=== PATIENT | male | born 1950 | race Caucasian/White ===

== ENCOUNTER → 2020-06-21 10:52 | Outpatient (BNVA) | payer MEDICARE, OTHER, SELFPAY | PROVIDERS: PCP Nurse Practitioner Family; Referring Provider Nurse Practitioner Family; Visit Provider Surgery | DX: K80.20 Calculus of gallbladder without cholecystitis without obstruction (principal); K29.60 Other gastritis without bleeding | CPT/HCPCS: 99214 ==

== ENCOUNTER 2020-06-28 13:24 | Outpatient (REF) | payer MEDICARE, OTHER, SELFPAY ==
--- NOTE | 2020-06-28 13:28 | CT_ITS ---
EXAMINATION: CT ABDOMEN AND PELVIS WITHOUT CONTRAST CLINICAL INFORMATION: Gallstones. COMPARISON: None. TECHNIQUE: Multidetector volumetric imaging was performed from the superior aspect of the liver through the pubic symphysis. Sagittal and coronal reformatted images were obtained on the technologist's workstation. This CT examination was performed using dose optimization techniques as appropriate, variously including the following: *Automated exposure control *Adjustment of mA and/or kV according to patient size (this includes techniques or standardized protocols for targeted exams where dose is matched to indication/reason for exam; i.e. extremities or head) *Use of iterative reconstruction technique DLP: 869 mGy-cm FINDINGS: LUNG BASES: The visualized lung bases are unremarkable. There are pacer electrodes in right atrium and right ventricle. LIVER, GALLBLADDER, AND BILIARY TREE: The liver is normal in size, shape, and attenuation. No focal hepatic lesion or biliary ductal dilatation is present. There is a solitary radiopaque gallstone in dependent gallbladder. PANCREAS: Unremarkable. SPLEEN: Mild spleen enlargement measuring 15 cm in AP length on axial image 28/3. [id number] change from previous study. ADRENAL GLANDS: Unremarkable. KIDNEYS AND URETERS: The kidneys are normal in size, shape, and attenuation. No hydronephrosis, hydroureter, or calculi seen. No perinephric stranding. BLADDER: The bladder is nondistended and mild bladder wall thickening. GASTROINTESTINAL TRACT: There is scattered sigmoid and rest of the colon diverticuli and stool without diverticulitis or distention. Ileocecal junction and, terminal ileum are normal. The appendix is not visualized with certainty. ABDOMINAL WALL: The small umbilical hernia containing fat. LYMPH NODES: There are numerous abnormal-sized inguinal, pelvic and retroperitoneal lymph nodes. The largest lymph nodes adjacent right common iliac artery measure 2.9 and 2.6 cm on coronal image 92/5, right external iliac 4 cm lymph node on coronal image 90/5. The size of these lymph nodes appear similar to previous CT abdomen exam 10/11/2018 and 07/09/2018. VASCULAR: Unremarkable. PELVIC VISCERA: There is no free air or free fluid seen. OSSEOUS STRUCTURES: There are degenerative disc changes L5-S1, L4-L5 and L3-L4 disc levels. There is mild ventral spondylosis. No lytic or sclerotic process seen. CT/CT abdomen pelvis wo con IMPRESSION: Diffuse retroperitoneal and iliac lymphadenopathy. Mild splenomegaly with [id number] change. Stable gallstone and colonic diverticulosis.
== END 2020-06-28 13:25 | disposition home or self-care (01) ==
LOC: HO.CT 13:24
PROVIDERS: PCP Nurse Practitioner Family; Visit Provider Surgery
DX: K80.20 Calculus of gallbladder without cholecystitis without obstruction (principal)
CPT/HCPCS: 74176

== ENCOUNTER → 2020-07-10 11:30 | Outpatient (BNVA) | payer MEDICARE, OTHER, SELFPAY | PROVIDERS: PCP Nurse Practitioner Family; Referring Provider Nurse Practitioner Family; Visit Provider Surgery | DX: I25.10 Atherosclerotic heart disease of native coronary artery without angina pectoris (principal); I35.0 Nonrheumatic aortic (valve) stenosis; I50.30 Unspecified diastolic (congestive) heart failure; I27.20 Pulmonary hypertension, unspecified; Z45.018 Encounter for adjustment and management of other part of cardiac pacemaker; Z79.82 Long term (current) use of aspirin; Z79.899 Other long term (current) drug therapy; K80.20 Calculus of gallbladder without cholecystitis without obstruction | CPT/HCPCS: 99212 ==

== ENCOUNTER 2020-07-21 09:45 | Outpatient (REF) | payer MEDICARE, OTHER, SELFPAY ==
--- NOTE | 2020-07-21 10:04 | XR_ITS ---
EXAMINATION: XR HIP, LEFT CLINICAL INFORMATION: Pain COMPARISON: Previous x-ray July 2017 TECHNIQUE: Two views of the left hip. FINDINGS: Bone alignment is normal. No fracture or dislocation is seen. There is mild left hip arthritis with joint space narrowing and osteophyte formation. There is soft tissue arterial calcification. XR/XR hip LT min 2V IMPRESSION: Mild arthritis.
== END 2020-07-21 09:46 | disposition home or self-care (01) ==
LOC: HO.HMGCX 09:45
PROVIDERS: PCP Nurse Practitioner Family; Visit Provider Nurse Practitioner Family
DX: M25.552 Pain in left hip (principal)
CPT/HCPCS: 73502

== ENCOUNTER 2020-08-13 11:35 | Outpatient (REF) | payer MEDICARE, OTHER, SELFPAY | END 2020-08-13 11:36 | disposition home or self-care (01) | LOC: HO.HOSX 11:35 | PROVIDERS: Visit Provider Orthopaedic Surgery | DX: Z13.89 Encounter for screening for other disorder (principal) ==

== ENCOUNTER → 2021-01-24 13:50 | Outpatient (REF) | payer MEDICARE, OTHER, SELFPAY ==
--- NOTE | 2021-01-24 13:56 | CA_ITS ---
Transthoracic Echocardiogram Patient (Last, First, Middle): Wayne Singh F Gender: Male Date of : 1950 Age: 70 Procedure Date: 01/24/2021 Procedure Type: Transthoracic Echocardiogram Location: OP Height: 172.72 cm Weight: 117.94 kg BSA: 2.29 m2 Heart Rate: bpm BP: 110 / 62 mmHg Um Rn: MYRA/MANUEL Referring MD: Lawrence Santacruz MD Symptoms: I35.0 - Nonrheumatic aortic (valve) stenosis Study Quality: Fair ECG Rhythm: Sinus Conclusions: - The left ventricular systolic function is low normal. The visually estimated ejection fraction is between 50-55%. - Aortic valve sclerosis but no significant stenosis. - There is mild mitral annular calcification. Findings Procedure Information Contrast agent, definity, is being given per protocol without apparent complications. Left Ventricle Normal left ventricular cavity size. There is mildly increased left ventricular wall thickness. The left ventricular systolic function is low normal. The visually estimated ejection fraction is between 50-55%. There is no evidence of regional wall motion abnormalities. There is paradoxical septal motion consistent with post-operative status, paradoxical septal motion consistent with a left bundle branch block, and paradoxical septal motion consistent with a right ventricular pacemaker. E/E prime ratio is >15, consistent with elevated filling pressures. Evidence suggests grade I (mild) diastolic dysfunction. Right Ventricle Normal right ventricular cavity size and systolic function. There is a pacemaker wire seen in the right ventricle. Atria The left atrium is mildly dilated. The right atrium is normal in size. Aortic Valve There is mild calcification of the aortic valve. The peak aortic velocity is 1.67 m/s with a calculated peak gradient of 11 mmHg. The mean gradient is 6 mmHg. The aortic valve area is 1.91 cm2. There is no aortic valve regurgitation. No significant aortic stenosis. Mitral Valve There is mild mitral annular calcification. There is trace mitral valve regurgitation. There is no mitral valve stenosis. Pulmonic Valve The pulmonic valve was not well visualized. Tricuspid Valve Normal tricuspid valve structure. There is mild tricuspid valve regurgitation. The pulmonary artery systolic pressure is normal. Great Vessels The aortic annulus, sinuses of valsalva, and asc aorta are normal in size. Venous The inferior vena cava is normal in size and collapses greater than 50% with inspiration. Pericardium/Pleural There is no evidence of pericardial effusion. Prior Study Comparison No significant change compared to prior study dated: 07/13/2018. Measurements 2D Linear Measurements RVIDd: 3.01 RVIDd Index: 1.31 IVSd: 1.01 0.6-0.9/0.6-1.0 cm LVIDd: 5.33 3.9-5.3/4.2-5.9 cm LVIDd Index: 2.33 2.4-3.2/2.2-3.1 cm/m2 LVIDs: 3.52 2.0-3.6 cm LVPWd: 1.17 0.7-1.1 cm Ao Root: 3.30 2.1-3.5 cm LA Diam: 5.00 2.7-3.8/3.0-4.0 cm LAIDs Index: 2.18 1.5-2.3 cm/m2 LV Mass: 283.03 67-162/88-224 g LV Mass Index: 123.59 43-95/49-115 g/m2 LVOT Diam: 2.20 3.0+(-)1.3 cm 2D Systolic Function EF 4C: 53.30 >55% EF 2C: 55.70 >55% EF BiP: 54.00 >55% Mitral Valve MV VTI: 0.24 MV Pk Naveen: 1.09 MV Mn Naveen: 0.81 MV Pk Grad: 5.00 MV Mn Grad: 3.00 MV Pk E: 1.01 MV PK A: 1.00 MV Decel Time: 170.00 E/A: 1.00 E'Lateral: 7.18 E'Medial: 4.90 E/E' Med: 20.60 E/E' Lat: 14.10 PHT: 67.00 MVA PHT: 3.28 MVA Continuity: 2.91 Decel Weber: 5.14 Aortic Valve AoV Pk Naveen: 1.67 AoV Mn Naveen: 1.21 AoV VTI: 0.36 AoV Pk Grad: 11.00 Aov Mn Grad: 6.00 WIL Cont.VTI: 1.91 LVOT LVOT Pk Naveen: 0.80 LVOT Mn Naveen: 0.57 LVOT VTI: 0.18 LVOT Pk Grad: 3.00 LVOT Mn Grad: 2.00 LVOT Diam: 2.20 LVOT Area: 3.80 Diastolic Function MV Pk E: 1.01 MV Pk A: 1.00 E/A: 1.00 E'Medial: 4.90 E/E' Med: 20.60 E' Laterial: 7.18 E/E' Lat: 14.10 Tricuspid Valve TR Pk Naveen: 2.54 TR Pk Grad: 26.00 RA Press: 3.00 RVSP: 29.00 Great Vessels Aorta Ao Root-2D: 3.30 2.0-3.7 cm Ao Asc: 2.90 2.1-3.4 cm Updated in Other Vendor System with Status of Final Lawrence Santacruz MD electronically signed on 01/26/2021 12:41:31 PM with status of Final
== END ==
LOC: HO.CARD 13:50
PROVIDERS: Visit Provider Internal Medicine
DX: I35.0 Nonrheumatic aortic (valve) stenosis (principal); I25.10 Atherosclerotic heart disease of native coronary artery without angina pectoris
CPT/HCPCS: 93306; Q9957

== ENCOUNTER → 2021-02-12 14:18 | Outpatient (BNVA) | payer MEDICARE, OTHER, SELFPAY | PROVIDERS: PCP Nurse Practitioner Family; Referring Provider Nurse Practitioner Family; Visit Provider Internal Medicine | DX: Z45.018 Encounter for adjustment and management of other part of cardiac pacemaker (principal); I25.10 Atherosclerotic heart disease of native coronary artery without angina pectoris; I50.32 Chronic diastolic (congestive) heart failure; I35.8 Other nonrheumatic aortic valve disorders; I27.20 Pulmonary hypertension, unspecified | CPT/HCPCS: 99212 ==

== ENCOUNTER 2021-03-12 15:05 | Outpatient (REF) | payer MEDICARE, OTHER, SELFPAY ==
[2021-03-12 15:10] LABS: MANUAL DIFF FLAG NO
[2021-03-12 15:13] LABS: Basophils Absolute Auto 0.1 X10*3/uL (0.0-0.2); Basophils Percent Auto 1.1 % (0-2); Eosinophils Absolute Auto 0.3 X10*3/uL (0.0-0.4); Eosinophils Percent Auto 3.6 % (0-4); Hematocrit 39.6 % (42-52); Hemoglobin 12.6 g/dl (14.0-18.0); Imm Gran Abs Auto 0.03 X10*3/uL (0.00-0.03); Imm Gran Pct Auto 0.4 % (0.0-0.4); Lymphocytes Absolute Auto 1.8 X10*3/uL (1.2-4.9); Lymphocytes Percent Auto 21.2 % (20-40); Mean Corpuscular HGB Conc 31.8 g/dl (31.0-36.0); Mean Corpuscular Hemoglobin 28.1 pg (27.0-33.0); Mean Corpuscular Volume 88.4 fL (80-98); Monocytes Absolute Auto 0.6 X10*3/uL (0.1-1.2); Monocytes Percent Auto 7.1 % (2-11); Neutrophils Absolute Auto 5.6 X10*3/uL (2.0-8.3); Neutrophils Percent Auto 66.6 % (45-73); Platelet Count 165 X10*3/uL (160-400); Red Blood Count 4.48 X10*6/uL (4.60-5.80); Red Cell Distribution Width 14.2 % (11.0-16.0); White Blood Count 8.4 X10*3/uL (4.8-10.8)
[2021-03-12 15:53] LABS: Alanine Aminotransferase 26 U/L (0-40); Albumin Level 3.7 g/dL (3.5-5.0); Alkaline Phosphatase 101 U/L (39-117); Anion Gap 13 (12-20); Aspartate Amino Transferase 27 U/L (5-37); Bilirubin Total 0.6 mg/dL (0.0-1.0); Blood Urea Nitrogen 18 mg/dL (9-16); Calcium 9.2 mg/dL (8.4-10.2); Carbon Dioxide 27 mmol/L (22-29); Chloride 104 mmol/L (96-108); Cholesterol 118 mg/dL; Estimated Glomerular Filt Rate > 60; Glucose Fasting 209 mg/dL (60-99); HDL Cholesterol 34 mg/dL; LDL Cholesterol Calculated 66 mg/dl; Potassium 4.6 mmol/L (3.3-5.1); Sodium 139 mmol/L (135-145); Total Protein 6.7 g/dL (6.5-8.0); Triglycerides 90 mg/dL
[2021-03-12 19:22] LABS: Reflex LDLD? No
== END 2021-03-12 15:06 | disposition home or self-care (01) ==
LOC: HO.LNP 15:05
PROVIDERS: Visit Provider Internal Medicine
DX: Z12.5 Encounter for screening for malignant neoplasm of prostate (principal); E11.311 Type 2 diabetes mellitus with unspecified diabetic retinopathy with macular edema; I50.22 Chronic systolic (congestive) heart failure; I10 Essential (primary) hypertension; E78.00 Pure hypercholesterolemia, unspecified; E66.01 Morbid (severe) obesity due to excess calories
CPT/HCPCS: 80053; 80061; 84153; 85025

== ENCOUNTER 2021-03-13 15:11 | Outpatient (REF) | payer MEDICARE, OTHER, SELFPAY ==
[2021-03-13 15:33] LABS: Glucose Urine UA 250 MG/DL (NEG); Leukocyte Esterase Urine NEG (NEG); Nitrite Urine NEG (NEG); Urine Blood NEG (NEG); Urine Ketones NEG (NEG); Urine Protein NEG (NEG-TRACE)
[2021-03-13 15:36] LABS: Appearance Urine CLEAR; Color Urine YELLOW
[2021-03-13 16:01] LABS: Creatinine Urine 117.91 mg/dL; Microalbum/Creatinine Ratio Ur 19.5 ug/mg cr
[2021-03-13 18:00] LABS: RBC Urine 0 /HPF (0); WBC Urine 0 /HPF (0-4)
[2021-03-13 18:01] LABS: Calcium Oxalate Crystals Urine TRACE /LPF
== END 2021-03-13 15:12 | disposition home or self-care (01) ==
LOC: HO.LNP 15:11
PROVIDERS: Visit Provider Internal Medicine
DX: E11.311 Type 2 diabetes mellitus with unspecified diabetic retinopathy with macular edema (principal)
CPT/HCPCS: 81001; 82043

== ENCOUNTER 2021-05-14 14:24 | Outpatient (REF) | payer MEDICARE, OTHER, SELFPAY ==
--- NOTE | ~2021-05-14 | MR_ITS ---
EXAMINATION: MR LUMBAR SPINE WITHOUT CONTRAST CLINICAL INFORMATION: Spinal stenosis. Lumbar region. COMPARISON: Lumbar spine MRI 06/24/2018. TECHNIQUE: MRI of the lumbar spine was obtained using routine sequences without contrast. FINDINGS: There is slight grade 1 anterolisthesis of L5 on S1. Alignment is otherwise normal. Vertebral heights are preserved. There are mixed type II and type III degenerative endplate changes at L3-L4. Minimal type II degenerative endplate changes at L5-S1. Loss of intervertebral disc height and T2 signal intensity at multiple levels related to disc degeneration. The tip of the conus medullaris is located at L1. No mass effect on the conus. Visualized distal cord signal intensity is normal. At L1-L2 there is a small left central protrusion. No canal stenosis. No mass effect on the traversing or foraminal nerve roots. At L2-L3 there is a slightly bulging disc. Bilateral facet degenerative change. Mild canal stenosis. No mass effect on the traversing or foraminal nerve roots. At L3-L4 there is a diffusely bulging disc. Advanced facet degenerative change. Moderate to severe canal stenosis. Mild compression of both L3 foraminal nerve roots. At L4-L5 there is a broad shallow central protrusion superimposed upon a bulging disc. Bilateral facet degenerative change. Mild canal stenosis. There is subtle abutment of both traversing L5 nerve roots. No foraminal nerve root compression. At L5-S1 there is a pseudodisc bulge. Advanced facet degenerative change. Asymmetric compression of the right traversing S1 nerve roots. There is also moderate compression of the right L5 foraminal nerve root. Limited visualization of the retroperitoneal anatomy reveals no abnormal finding. Psoas and paraspinal muscle groups are symmetric. MR/MR lumbar spine wo con IMPRESSION: There is multilevel degenerative spondylosis of the lumbar spine with grade 1 anterolisthesis of L5 on S1 related to advanced facet degenerative changes at this level. There is moderate to severe canal stenosis at L3-L4 and mild canal stenosis at and L2-L3 and L4-L5. There is asymmetric narrowing of the right subarticular zone at L5-S1 causing compression of the right traversing S1 nerve roots. There is also moderate mass effect on the right L5 foraminal nerve root at this level. Bulging discs in conjunction with facet degenerative change at L3-L4 also causes mild mass effect on both L3 foraminal nerve roots.
== END 2021-05-14 14:25 | disposition home or self-care (01) ==
LOC: HO.MRI 14:24
PROVIDERS: PCP Internal Medicine; Visit Provider Internal Medicine
DX: M48.062 Spinal stenosis, lumbar region with neurogenic claudication (principal)
CPT/HCPCS: 72148

== ENCOUNTER → 2021-08-21 12:52 | Outpatient (BNVA) | payer MEDICARE, OTHER, SELFPAY | PROVIDERS: PCP Internal Medicine; Visit Provider Nurse Practitioner Family | DX: M48.061 Spinal stenosis, lumbar region without neurogenic claudication (principal); M47.816 Spondylosis without myelopathy or radiculopathy, lumbar region | CPT/HCPCS: 99202 ==

== ENCOUNTER → 2021-10-23 13:16 | Outpatient (BNVA) | payer MEDICARE, OTHER, SELFPAY | PROVIDERS: PCP Internal Medicine; Referring Provider Internal Medicine; Visit Provider Internal Medicine | DX: Z45.018 Encounter for adjustment and management of other part of cardiac pacemaker (principal); I25.10 Atherosclerotic heart disease of native coronary artery without angina pectoris; I50.32 Chronic diastolic (congestive) heart failure; I35.8 Other nonrheumatic aortic valve disorders; I27.20 Pulmonary hypertension, unspecified | CPT/HCPCS: 93005; 99212 ==

== ENCOUNTER 2021-10-24 05:51 | Outpatient (REF) | payer MEDICARE, OTHER, SELFPAY ==
--- NOTE | ~2021-10-24 | FL_ITS ---
EXAMINATION: XR FLUOROSCOPY WITH IMAGES CLINICAL INFORMATION: M47.816 - Spondylosis without myelopathy or radiculopathy COMPARISON: MR lumbar spine 05/14/2021. TECHNIQUE: Fluoroscopy performed by Dr. Jordan Del Valle. Fluoroscopy time: 1.1 minutes DAP: 11.8 Gycm2 Images: 2 FINDINGS: There is a spinal needle overlying the outer left L3 neural foramen. There is contrast seen in the respective nerve sheath. Some early transforaminal epidural extension is suggested. No visible vascular communication. There are degenerative disc changes L3-L4. FL/FL guidance in treatment room IMPRESSION: Fluoroscopy for pain management procedures.
== END 2021-10-24 05:52 | disposition home or self-care (01) ==
LOC: HO.RADIR 05:51
PROVIDERS: Visit Provider Internal Medicine
DX: M47.26 Other spondylosis with radiculopathy, lumbar region (principal); M48.061 Spinal stenosis, lumbar region without neurogenic claudication
CPT/HCPCS: 64483; J1100; Q9967

== ENCOUNTER 2021-12-04 11:30 | Outpatient (REF) | payer MEDICARE, OTHER, SELFPAY ==
[2021-12-04 12:58] LABS: Alanine Aminotransferase 36 U/L (0-40); Alkaline Phosphatase 115 U/L (39-117); Aspartate Amino Transferase 37 U/L (5-37); Bilirubin Direct 0.2 mg/dL (0.0-0.5); Bilirubin Total 0.5 mg/dL (0.0-1.0); Cholesterol 141 mg/dL; Glucose Fasting 115 mg/dL (60-99); HDL Cholesterol 35 mg/dL; LDL Cholesterol Calculated 83 mg/dl; Total Protein 7.7 g/dL (6.5-8.0); Triglycerides 119 mg/dL
[2021-12-04 13:12] LABS: Estimated Average Glucose 154 mg/dL
[2021-12-04 13:51] LABS: Reflex LDLD? No
== END 2021-12-04 11:31 | disposition home or self-care (01) ==
LOC: HO.LNP 11:30
PROVIDERS: PCP Internal Medicine; Visit Provider Internal Medicine
DX: E11.311 Type 2 diabetes mellitus with unspecified diabetic retinopathy with macular edema (principal); E78.00 Pure hypercholesterolemia, unspecified
CPT/HCPCS: 80061; 80076; 82947; 83036

== ENCOUNTER → 2021-12-11 14:37 | Outpatient (REF) | payer MEDICARE, OTHER, SELFPAY ==
--- NOTE | 2021-12-11 14:44 | ECG_ITS ---
Test Reason : PREOP Blood Pressure : / mmHG Vent. Rate : 087 BPM Atrial Rate : 087 BPM P-R Int : 216 ms QRS Dur : 168 ms QT Int : 416 ms P-R-T Axes : 059 073 185 degrees QTc Int : 500 ms Atrial-sensed ventricular-paced rhythm with prolonged AV conduction Abnormal ECG When compared with ECG of 16-MAY-2018 18:13, Electronic ventricular pacemaker has replaced Sinus rhythm Referred By: Gopi Burks Electronically Signed By:Milad Lomax
== END ==
LOC: HO.CARD 14:37
PROVIDERS: PCP Internal Medicine; Visit Provider Internal Medicine
DX: Z01.818 Encounter for other preprocedural examination (principal)
CPT/HCPCS: 93005

== ENCOUNTER 2021-12-11 15:28 | Outpatient (REF) | payer MEDICARE, OTHER, SELFPAY ==
[2021-12-11 15:31] LABS: MANUAL DIFF FLAG NO
[2021-12-11 15:35] LABS: Basophils Absolute Auto 0.1 X10*3/uL (0.0-0.2); Basophils Percent Auto 1.2 % (0-2); Eosinophils Absolute Auto 0.3 X10*3/uL (0.0-0.4); Eosinophils Percent Auto 4.4 % (0-4); Hematocrit 39.5 % (42.0-52.0); Hemoglobin 12.5 g/dl (14.0-18.0); Imm Gran Abs Auto 0.01 X10*3/uL (0.00-0.03); Imm Gran Pct Auto 0.1 % (0.0-0.4); Lymphocytes Absolute Auto 1.4 X10*3/uL (1.2-4.9); Lymphocytes Percent Auto 19.8 % (20-40); Mean Corpuscular HGB Conc 31.6 g/dl (31.0-36.0); Mean Corpuscular Hemoglobin 28.2 pg (27.0-33.0); Monocytes Absolute Auto 0.5 X10*3/uL (0.1-1.2); Neutrophils Absolute Auto 4.9 x10*3/uL (2.0-8.3); Neutrophils Percent Auto 67.5 % (45-73); Platelet Count 176 X10*3/uL (160-400); Red Blood Count 4.44 X10*6/uL (4.60-5.80); Red Cell Distribution Width 13.8 % (11.0-16.0); White Blood Count 7.2 X10*3/uL (4.8-10.8)
[2021-12-11 16:05] LABS: Alanine Aminotransferase 29 U/L (0-40); Albumin Level 3.6 g/dL (3.5-5.0); Alkaline Phosphatase 103 U/L (39-117); Anion Gap 13 (12-20); Aspartate Amino Transferase 32 U/L (5-37); Bilirubin Total 0.5 mg/dL (0.0-1.0); Blood Urea Nitrogen 15 mg/dL (9-16); Calcium 9.4 mg/dL (8.4-10.2); Carbon Dioxide 27 mmol/L (22-29); Chloride 102 mmol/L (96-108); Estimated Glomerular Filt Rate > 60; Glucose Random 267 mg/dL (60-115); Potassium 4.6 mmol/L (3.3-5.1); Sodium 137 mmol/L (135-145); Total Protein 6.8 g/dL (6.5-8.0)
== END 2021-12-11 15:29 | disposition home or self-care (01) ==
LOC: HO.LNP 15:28
PROVIDERS: Visit Provider Internal Medicine
DX: Z01.818 Encounter for other preprocedural examination (principal)
CPT/HCPCS: 80053; 85025

== ENCOUNTER → 2022-04-08 13:43 | Outpatient (BNVA) | payer MEDICARE, OTHER, SELFPAY | PROVIDERS: PCP Internal Medicine; Referring Provider Internal Medicine; Visit Provider Internal Medicine | DX: Z45.018 Encounter for adjustment and management of other part of cardiac pacemaker (principal); I25.10 Atherosclerotic heart disease of native coronary artery without angina pectoris; I50.32 Chronic diastolic (congestive) heart failure; I35.8 Other nonrheumatic aortic valve disorders; I27.20 Pulmonary hypertension, unspecified; I47.2 Ventricular tachycardia | CPT/HCPCS: 93280; 99212 ==

== ENCOUNTER 2022-05-10 09:10 | Outpatient (REF) | payer MEDICARE, OTHER, SELFPAY ==
[2022-05-10 09:39] LABS: MANUAL DIFF FLAG NO
[2022-05-10 10:15] LABS: Basophils Absolute Auto 0.1 X10*3/uL (0.0-0.2); Basophils Percent Auto 1.7 % (0-2); Eosinophils Absolute Auto 0.3 X10*3/uL (0.0-0.4); Eosinophils Percent Auto 4.4 % (0-4); Hematocrit 38.5 % (42.0-52.0); Hemoglobin 12.3 g/dl (14.0-18.0); Imm Gran Abs Auto 0.03 X10*3/uL (0.00-0.03); Imm Gran Pct Auto 0.4 % (0.0-0.4); Lymphocytes Absolute Auto 1.9 X10*3/uL (1.2-4.9); Lymphocytes Percent Auto 24.5 % (20-40); Mean Corpuscular HGB Conc 31.9 g/dl (31.0-36.0); Mean Corpuscular Hemoglobin 27.9 pg (27.0-33.0); Mean Corpuscular Volume 87.3 fL (80.0-98.0); Mean Platelet Volume 9.6 fL (9.4-12.4); Monocytes Absolute Auto 0.7 X10*3/uL (0.1-1.2); Monocytes Percent Auto 9.1 % (2-11); Neutrophils Absolute Auto 4.6 x10*3/uL (2.0-8.3); Neutrophils Percent Auto 59.9 % (45-73); Platelet Count 186 X10*3/uL (160-400); Red Blood Count 4.41 X10*6/uL (4.60-5.80); White Blood Count 7.7 X10*3/uL (4.8-10.8)
[2022-05-10 10:31] LABS: Estimated Average Glucose 171 mg/dL; Hemoglobin A1c % 7.6 %
[2022-05-10 11:06] LABS: Alanine Aminotransferase 24 U/L (0-40); Alkaline Phosphatase 101 U/L (39-117); Anion Gap 16 (12-20); Aspartate Amino Transferase 29 U/L (5-37); Bilirubin Total 0.6 mg/dL (0.0-1.0); Blood Urea Nitrogen 18 mg/dL (9-16); Calcium 9.5 mg/dL (8.4-10.2); Carbon Dioxide 27 mmol/L (22-29); Chloride 102 mmol/L (96-108); Cholesterol 136 mg/dL; Estimated Glomerular Filt Rate > 60; Glucose Fasting 105 mg/dL (60-99); HDL Cholesterol 33 mg/dL; LDL Cholesterol Calculated 79 mg/dl; Potassium 4.8 mmol/L (3.3-5.1); Sodium 140 mmol/L (135-145); Total Protein 7.6 g/dL (6.5-8.0); Triglycerides 122 mg/dL
[2022-05-10 14:18] LABS: Appearance Urine Clear; Color Urine Yellow; Glucose Urine UA Negative (Negative); Leukocyte Esterase Urine Negative (Negative); Nitrite Urine Negative (Negative); PH 5.5 (5.0-9.0); Specific Gravity - Urine 1.015 (1.005-1.025); Urine Blood Negative (Negative); Urine Ketones Negative (Negative); Urine Protein Negative (Neg-Trace)
[2022-05-10 14:50] LABS: Creatinine Urine 109.66 mg/dL; Microalbum/Creatinine Ratio Ur 23.7 ug/mg cr
== END 2022-05-10 09:11 | disposition home or self-care (01) ==
LOC: HO.LAB 09:10
PROVIDERS: PCP Internal Medicine; Visit Provider Internal Medicine
DX: E11.311 Type 2 diabetes mellitus with unspecified diabetic retinopathy with macular edema (principal); I11.0 Hypertensive heart disease with heart failure; I50.22 Chronic systolic (congestive) heart failure; E78.00 Pure hypercholesterolemia, unspecified
CPT/HCPCS: 36415; 80053; 80061; 81003; 82043; 83036; 85025

== ENCOUNTER 2022-09-17 11:04 | Outpatient (REF) | payer MEDICARE, OTHER, SELFPAY ==
[2022-09-17 12:18] LABS: Magnesium 1.8 mg/dL (1.6-2.6)
== END 2022-09-17 11:05 | disposition home or self-care (01) ==
LOC: HO.LNP 11:04
PROVIDERS: Visit Provider Internal Medicine
DX: E83.42 Hypomagnesemia (principal)
CPT/HCPCS: 83735

== ENCOUNTER → 2023-01-07 13:49 | Outpatient (BNVA) | payer MEDICARE, OTHER, SELFPAY | PROVIDERS: PCP Internal Medicine; Referring Provider Internal Medicine; Visit Provider Internal Medicine | DX: I25.10 Atherosclerotic heart disease of native coronary artery without angina pectoris (principal); I50.32 Chronic diastolic (congestive) heart failure; I11.0 Hypertensive heart disease with heart failure; I35.8 Other nonrheumatic aortic valve disorders; I27.20 Pulmonary hypertension, unspecified; I47.20 Ventricular tachycardia, unspecified; Z95.1 Presence of aortocoronary bypass graft; Z95.0 Presence of cardiac pacemaker | CPT/HCPCS: 93005; 99212 ==

== ENCOUNTER 2023-03-22 08:47 | Outpatient (REF) | payer MEDICARE, OTHER, SELFPAY ==
[2023-03-22 10:35] LABS: Estimated Average Glucose 123 mg/dL; Hemoglobin A1c % 5.9 %
[2023-03-22 10:38] LABS: Alanine Aminotransferase 28 U/L (0-40); Albumin Level 3.9 g/dL (3.5-5.0); Alkaline Phosphatase 82 U/L (39-117); Aspartate Amino Transferase 30 U/L (5-37); Bilirubin Direct 0.2 mg/dL (0.0-0.5); Bilirubin Total 0.7 mg/dL (0.0-1.0); Glucose Fasting 86 mg/dL (60-99); Total Protein 7.8 g/dL (6.5-8.0)
[2023-03-22 10:41] LABS: Cholesterol 129 mg/dL; HDL Cholesterol 34 mg/dL; LDL Cholesterol Calculated 80 mg/dl; Triglycerides 77 mg/dL
[2023-03-22 12:17] LABS: Reflex LDLD? No
== END 2023-03-22 08:48 | disposition home or self-care (01) ==
LOC: HO.LAB 08:47
PROVIDERS: PCP Internal Medicine; Visit Provider Internal Medicine
DX: E11.311 Type 2 diabetes mellitus with unspecified diabetic retinopathy with macular edema (principal); E78.00 Pure hypercholesterolemia, unspecified
CPT/HCPCS: 36415; 80061; 80076; 82947; 83036

== ENCOUNTER → 2023-05-25 23:59 | Outpatient (BNV) | payer MEDICARE, OTHER, SELFPAY ==
--- NOTE | 2023-05-29 12:44 | A.OFFVIS_ITS ---
Intake Intake Visit Reasons: Remote device check- medtr[employer] Allergies gabapentin Allergy (Unknown, Verified 01/07/23 13:59) Unknown ibuprofen Adverse Reaction (Mild, Verified 01/07/23 13:59) GI upset omeprazole Adverse Reaction (Mild, Verified 01/07/23 13:59) GI upset acetaminophen [From Vicodin] Adverse Reaction (Unknown, Verified 01/07/23 13:59) GI upset, dizziness, vomiting erythromycin base [ERYTHROMYCIN BASE] Adverse Reaction (Unknown, Verified 01/07/23 13:59) GI PROBLEMS hydrocodone [From Vicodin] Adverse Reaction (Unknown, Verified 01/07/23 13:59) GI upset, dizziness, vomiting PFSH Medical History (Updated 04/08/22 @ 14:35 by Lawrence Santacruz MD) Diabetic neuropathy Hyperlipidemia Normal colonoscopy DM type 2 (diabetes mellitus, type 2) Type 2 diabetes mellitus with unspecified complications Pulmonary hypertension Left bundle branch block Heart failure with preserved ejection fraction Non-rheumatic aortic stenosis Atherosclerotic cardiovascular disease Gallstones CHF (congestive heart failure) Cardiomyopathy Pacemaker Morbid obesity HTN (hypertension), benign Reflux gastritis Lumbar back pain Surgical History History of coronary artery bypass graft x 3 History of permanent cardiac pacemaker placement (~04/12/20) Family History Father Diabetes Mother Cardiovascular disease Social History Alcohol intake: never Patient Tobacco Use Status: Never used Tobacco Office Procedures Cardiac Device Check Cardiac Device Check Details: Date of service- 05/25/2023 ; Battery life >9 years; normal lead parameters; AP 1.1%; PROTECTION CONSULTANT 100%; no significant arrhythmias. Overall normal device function. [id number] Cardiac Device Interrogation, pacemaker Procedure code (CPT) selection complete Assessment & Plan Assessment & Plan (1) Cardiomyopathy: Code(s): I42.9 - Cardiomyopathy, unspecified Coding Level of Care Code Procedure Only Diagnoses Cardiomyopathy I42.9 CPT Codes Cardiac Device Check - Cardiac Device 12: [id number] Cardiac Device Interrogation, pacemaker ([id number])
== END ==
PROVIDERS: PCP Internal Medicine; Visit Provider Internal Medicine
DX: I42.9 Cardiomyopathy, unspecified (principal); Z95.0 Presence of cardiac pacemaker
CPT/HCPCS: 93294

== ENCOUNTER 2023-06-13 13:27 | Emergency (ER) | payer MEDICARE, OTHER, SELFPAY ==
[2023-06-13 13:36] VITALS: BP 155/42; PULSE 85; O2SAT 100
[2023-06-13 13:41] VITALS: BP 149/58; PULSE 86; RESP 16; TEMP 36.3; O2SAT 100; BMI 41.1
--- NOTE | 2023-06-13 13:47 | ED.BACK ---
HPI - Back Pain/Injury General Chief Complaint: Back Pain/Injury Stated Complaint: BACK AND LEG PAIN Time Seen by Provider: 06/13/23 13:45 Source: patient Mode of arrival: EMS Limitations: no limitations History of Present Illness HPI Narrative: Patient with lumbar pain for 3 years, now with increasing lumbar pain and leg numbness. At [facility] he had Dr. Chaudhari at [facility]. No bowel or bladder incontinence MD elicited complaint: back pain Pertinent past history: prior back pain Related Data Home Medications Medication Instructions Recorded Confirmed aspirin 81 mg tablet,delayed 81 mg PO DAILY 06/21/20 01/07/23 release (Adult Low Dose Aspirin) lisinopril 20 mg tablet 20 mg PO DAILY 04/08/22 01/07/23 insulin glargine 100 unit/mL (3 unit subcut 01/07/23 01/07/23 mL) subcutaneous pen (Lantus Solostar U-100 Insulin) Previous Rx's Medication Instructions Recorded diabetic foot wear #1 ea 09/15/20 diabetic supplies, miscellan. #1 ea 09/15/20 furosemide 20 mg tablet 20 mg PO DAILY 30 days #30 tabs 12/14/20 dulaglutide 1.5 mg/0.5 mL 1.5 mg (0.5 mL) subcut QWEEK #2 mL 04/03/21 subcutaneous pen injector (Trulicity) amlodipine 5 mg tablet 5 mg PO DAILY #120 tabs 04/15/21 sertraline 100 mg tablet 100 mg PO DAILY 90 days #90 tabs 08/11/22 metoprolol succinate 50 mg 150 mg (3 x 50 mg) PO DAILY #270 08/30/22 tablet,extended release 24 hr tabs atorvastatin 40 mg tablet 40 mg PO DAILY #90 tabs 09/25/22 Allergies Allergy/AdvReac Type Severity Reaction Status Date / Time gabapentin Allergy Unknown Unknown Verified 01/07/23 13:59 ibuprofen AdvReac Mild GI upset Verified 01/07/23 13:59 omeprazole AdvReac Mild GI upset Verified 01/07/23 13:59 acetaminophen [From Vicodin] AdvReac Unknown GI upset, Verified 01/07/23 13:59 dizziness, vomiting erythromycin base AdvReac Unknown GI PROBLEMS Verified 01/07/23 13:59 [ERYTHROMYCIN BASE] hydrocodone [From Vicodin] AdvReac Unknown GI upset, Verified 01/07/23 13:59 dizziness, vomiting Review of Systems Review of Systems: Yes all other systems are reviewed and are negative Neurologic: Denies Sensory deficit (Neuro) [facility] Past Medical History Medical History Diabetic neuropathy Hyperlipidemia Normal colonoscopy DM type 2 (diabetes mellitus, type 2) Type 2 diabetes mellitus with unspecified complications Pulmonary hypertension Left bundle branch block Heart failure with preserved ejection fraction Non-rheumatic aortic stenosis Atherosclerotic cardiovascular disease Gallstones CHF (congestive heart failure) Cardiomyopathy Pacemaker Morbid obesity HTN (hypertension), benign Reflux gastritis Lumbar back pain Surgical History History of coronary artery bypass graft x 3 History of permanent cardiac pacemaker placement (~04/12/20) Family History Family History Father Diabetes Mother Cardiovascular disease Social History Social History Alcohol intake: never Patient Tobacco Use Status: Never used Tobacco Advance Directives: No Advance Directives Information Provided: Yes Physical Exam Vital Signs: Vital Signs: Last Vital Signs Temp 97.4 F 06/13/23 13:41 Pulse 86 06/13/23 13:41 Resp 16 06/13/23 13:41 BP 149/58 H 06/13/23 13:41 Pulse Ox 100 06/13/23 13:41 O2 Del Method Room Air 06/13/23 13:41 BMI result Body Mass Index 41.1 Const: Other: male looking older than stated age in no acute distress Nutritional Appearance: average body habitus Orientation/consciousness: oriented to person and patient oriented x3 Limitations: no limitations HEENT: Head: Yes normal to inspection Ears: external ears normal General nose exam: Normal external nose present Mouth: Normal oral and palatal mucosa present and oropharynx normal Throat: Yes posterior oropharynx normal Eyes: General: appearance normal, both eyes and all related structures Neck: Other: supple Neck: Yes normal visual inspection Chest: Chest palpation & inspection: normal inspection of the chest Resp: Auscultation: clear to auscultation bilaterally Cardio: Jugular venous distension: no JVD Rate: regular rate Rhythm: regular rhythm Heart sounds: S1 normal heart sound present and S2 normal heart sound present GI: Inspection: Yes normal to inspection Palpation (GI): Soft to palpation, nontender and No hepatosplenomegaly present Auscultation: normal bowel sounds : General: Yes no CVA tenderness Back/Spine/Pelvis: Back: no CVA tenderness Skin: General skin exam: no rashes or lesions noted Neuro: Other: moving lower extremities no bowel or bladder incontinence General: oriented to person and patient oriented x3 Cranial nerves: Yes CN's II-XII intact bilaterally Motor exam (neuro): 5/5 motor strength present throughout Sensory Exam: No Sensory deficit (Neuro) Extrem: General: Yes normal to inspection Psych: Appearance: grossly normal Course Reevaluation(s) Reevaluation #1: Discussed with neurosurgery team they will see the patient in the office now Time: 15:17 Medical Decision Making Differential Diagnosis Differential Diagnoses: The differential diagnosis associated with the presentation includes (radiculopathy, sciatica, lumbago) Admission/Observation Consideration of admission/observation: Escalation of care including admission/observation considered (upon arrival patient considered for admission) Consult Healthcare Provider Management of the patient was discussed with: Associate Juvenile Court Judge (neurosurgical team Khris Orozco) Independent Historian Clinical information obtained from an independent historian. History obtained from or confirmed by: Spouse and Other (Khris Orozco) Tests considered The following testing was considered but not selected: MRI of spine but patient is nonfocal Prescription Management I considered prescription management with: Pain Medication (narcotics considered but neurosurgery to handle pain management) Chronic Conditions Patient?s care impacted by: Hypertension Discharge Plan Discharge Clinical Impression: Lumbar radiculopathy, Sciatica Patient Disposition: Home, Self-Care Additional Instructions: Neurosurgery team Khris Orozco to see you now in the office Prescriptions: No Action furosemide 20 mg tablet 20 mg PO DAILY 30 Days Qty: 30 2RF Trulicity 1.5 mg/0.5 mL pen injector 1.5 mg subcut QWEEK Qty: 2 3RF amlodipine 5 mg tablet 5 mg PO DAILY Qty: 120 0RF sertraline 100 mg tablet 100 mg PO DAILY 90 Days Qty: 90 1RF metoprolol succinate 50 mg tablet extended release 24 hr 150 mg PO DAILY Qty: 270 3RF atorvastatin 40 mg tablet 40 mg PO DAILY Qty: 90 3RF (DME) diabetic foot wear See Rx Instructions .Route .MEDSUPPLY Qty: 1 0RF Rx Instructions: As directed (DME) diabetic supplies, miscellan. Misc See Rx Instructions .ROUTE .MEDSUPPLY Qty: 1 0RF Rx Instructions: DM shoes aspirin [Adult Low Dose Aspirin] 81 mg tablet,delayed release (DR/EC) 81 mg PO DAILY lisinopril 20 mg tablet 20 mg PO DAILY insulin glargine [Lantus Solostar U-100 Insulin] 100 unit/mL (3 mL) insulin pen subcut
== END 2023-06-13 15:24 | disposition home or self-care (01) ==
PROVIDERS: Emergency Provider Emergency Medicine; PCP Internal Medicine
DX: M54.16 Radiculopathy, lumbar region (principal); M54.42 Lumbago with sciatica, left side; M54.41 Lumbago with sciatica, right side; E11.9 Type 2 diabetes mellitus without complications; I10 Essential (primary) hypertension; E78.5 Hyperlipidemia, unspecified; E66.9 Obesity, unspecified; Z68.41 Body mass index [BMI] 40.0-44.9, adult; Z95.0 Presence of cardiac pacemaker; Z79.899 Other long term (current) drug therapy; Z79.4 Long term (current) use of insulin; Z79.82 Long term (current) use of aspirin
CPT/HCPCS: 72110; 99212; 99281; 99282

== ENCOUNTER 2023-06-13 15:31 | Outpatient (AMB) | payer MEDICARE, OTHER, SELFPAY ==
--- NOTE | 2023-06-13 15:33 | MHC.OFFVIS ---
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 Allergies gabapentin Allergy (Unknown, Verified 01/07/23 13:59) Unknown ibuprofen Adverse Reaction (Mild, Verified 01/07/23 13:59) GI upset omeprazole Adverse Reaction (Mild, Verified 01/07/23 13:59) GI upset acetaminophen [From Vicodin] Adverse Reaction (Unknown, Verified 01/07/23 13:59) GI upset, dizziness, vomiting erythromycin base [ERYTHROMYCIN BASE] Adverse Reaction (Unknown, Verified 01/07/23 13:59) GI PROBLEMS hydrocodone [From Vicodin] Adverse Reaction (Unknown, Verified 01/07/23 13:59) GI upset, dizziness, vomiting PFSH Medical History Diabetic neuropathy Hyperlipidemia Normal colonoscopy DM type 2 (diabetes mellitus, type 2) Type 2 diabetes mellitus with unspecified complications Pulmonary hypertension Left bundle branch block Heart failure with preserved ejection fraction Non-rheumatic aortic stenosis Atherosclerotic cardiovascular disease Gallstones CHF (congestive heart failure) Cardiomyopathy Pacemaker Morbid obesity HTN (hypertension), benign Reflux gastritis Lumbar back pain Surgical History History of coronary artery bypass graft x 3 History of permanent cardiac pacemaker placement (~04/12/20) Family History Father Diabetes Mother Cardiovascular disease Social History Alcohol intake: never Patient Tobacco Use Status: Never used Tobacco Assessment & Plan Assessment & Plan (1) Cervical myelopathy: Code(s): G95.9 - Disease of spinal cord, unspecified Plan HPI: Mr. Singh comes in today as a follow up patient after undergoing a minimally invasive fusion of L3-4 back in 11/[address] Lezama. Per his previous documentation he had success with many of his preoperative symptoms but had persistent pain that grew steadily worse as the months passed from his surgery. Thankfully most of his low back pain has resolved, but he now presents with new numbness in his bilateral anterior/lateral thighs, and some unspecified numbness / weakness in his hands. He reports that 2 weeks ago he was sitting in his chair at home, and fell out of the chair onto the floor. He reports that he landed on his buttocks. His reports that she had to call the fire department to pick him up off the ground and get him back into his chair. The next day he began to have this anterior / lateral thigh numbness, which concerned him enough to make a follow up appointment with our office. Unfortunately before he could make it to his visit today he went to the ED here at [facility] and sought emergency services for his thigh numbness at the direction of his who accompanies him to his appointment today. Physical Exam: Mobility / function: Patient ambulates well, can rise from a seated position without difficulty. Sensation: Diminished in bilateral thighs and hands. Groslly intact everyone else. CN: II-XII grossly intact. Strength Testing Upper Extremities: - Deltoid 5/5 right 5/5 left - Biceps 5/5 right 5/5 left - Triceps 5/5 right 5/5 left - Wrist Ext 5/5 right 5/5 left - Wrist Flex 5/5 right 5/5 left - Hand insurance counselor 5/5 right 5/5 left - Interossei 4/5 right 4/5 left Strength Testing Lower Extremities: - Hip flexion 5/5 right 5/5 left - Knee extension 5/5 right 5/5 left - Dorsiflexion 5/5 right 5/5 left - Plantar flex 5/5 right 5/5 left - EHL 5/5 right 5/5 left Reflexes: - Biceps Right - 2+ Left - 2+ - Triceps Right - 2+ Left - 2+ - Patellar Right - 3+ Left - 3+ - Achilles Right - 3+ Left - 3+ (-) Clonus (-) Bird?s sign Plan: The patient will be sent for an MRI of the cervical spine. His symptoms are extremely concerning as it is acute onset of bilateral numbness of his lower extremities, accompanied by bilateral numbness and weakness of his hands. which could be concerning for acute spinal cord impingement. He has no urinary incontinence, no saddle anesthesia, and no other red flag symptoms indicating a need for immediate (today) imaging. We discussed the possibility of having him return to the emergency department to wait to have an MRI completed. He reported that he would much prefer to return home and have an MRI ordered, and returned a few days to having completed during imaging appointment. We will place an order for an MRI and will have him make an appointment for follow-up discuss the results. We will also get him a set of cervical spine x-rays today. Total amount of time spent in this visit was 35 minutes in discussion of symptoms, MRI lumbar spine imaging results and subsequent plan of care Goran Lezama MD,PhD [facility] Coding Level of Care Code Est Pt Level 4 (41000) Diagnoses Cervical myelopathy G95.9
== END 2023-06-13 16:01 | disposition home or self-care (01) ==
PROVIDERS: PCP Internal Medicine; Visit Provider Physician Assistant
DX: G95.9 Disease of spinal cord, unspecified (principal)
CPT/HCPCS: 99214

== ENCOUNTER 2023-06-13 15:59 | Outpatient (REF) | payer MEDICARE, OTHER, SELFPAY ==
--- NOTE | ~2023-06-13 | XR_ITS ---
EXAMINATION: XR LUMBOSACRAL SPINE WITH OBLIQUES CLINICAL INFORMATION: Back pain COMPARISON: MR lumbar spine 05/14/2021 TECHNIQUE: AP view and lateral neutral, flexion, and extension views of the lumbar spine. FINDINGS: Mild levoscoliosis of the lumbar spine. Posterior fixation hardware and interdisc spacer at L3-L4. Hardware appears intact. Facet arthritis in the lower lumbar spine. Moderate multilevel lumbar spondylosis at the remaining levels. Evaluation limited due to body habitus. Atherosclerotic aortoiliac calcifications. Mild grade 1 retrolisthesis of L2 on L3. XR/XR lumbar spine 4V min IMPRESSION: Posterior fixation hardware and interdisc spacer at L3-L4. Hardware appears intact. Facet arthritis in the lower lumbar spine. Moderate multilevel lumbar spondylosis with mild grade 1 retrolisthesis of L2 on L3.
== END 2023-06-13 16:00 | disposition home or self-care (01) ==
LOC: HO.HOSX 15:59
PROVIDERS: Visit Provider Physician Assistant
DX: Z13.89 Encounter for screening for other disorder (principal)
CPT/HCPCS: 72110

== ENCOUNTER 2023-06-19 11:29 | Outpatient (REF) | payer MEDICARE, OTHER, SELFPAY ==
[2023-06-19 11:40] LABS: MANUAL DIFF FLAG NO
[2023-06-19 12:17] LABS: Basophils Absolute Auto 0.1 X10*3/uL (0.0-0.2); Basophils Percent Auto 1.3 % (0-2); Eosinophils Absolute Auto 0.4 X10*3/uL (0.0-0.4); Hematocrit 42.9 % (42.0-52.0); Hemoglobin 13.8 g/dl (14.0-18.0); Imm Gran Abs Auto 0.03 X10*3/uL (0.00-0.03); Imm Gran Pct Auto 0.3 % (0.0-0.4); Lymphocytes Absolute Auto 2.8 X10*3/uL (1.2-4.9); Lymphocytes Percent Auto 28.6 % (20-40); Mean Corpuscular HGB Conc 32.2 g/dl (31.0-36.0); Mean Corpuscular Hemoglobin 29.5 pg (27.0-33.0); Mean Corpuscular Volume 91.7 fL (80.0-98.0); Mean Platelet Volume 10.6 fL (9.4-12.4); Monocytes Absolute Auto 0.8 X10*3/uL (0.1-1.2); Monocytes Percent Auto 7.8 % (2-11); Neutrophils Absolute Auto 5.7 x10*3/uL (2.0-8.3); Platelet Count 209 X10*3/uL (160-400); Red Blood Count 4.68 X10*6/uL (4.60-5.80); Red Cell Distribution Width 13.4 % (11.0-16.0); White Blood Count 9.9 X10*3/uL (4.8-10.8)
[2023-06-19 12:28] LABS: Appearance Urine Clear; Color Urine Yellow; Glucose Urine UA Negative (Negative); Leukocyte Esterase Urine Negative (Negative); Nitrite Urine Negative (Negative); PH 5.5 (5.0-9.0); Urine Blood Negative (Negative); Urine Ketones Negative (Negative); Urine Protein Negative (Neg-Trace)
[2023-06-19 12:33] LABS: Bacteria Urine None Seen (None Seen); Hyaline Casts Urine 0-2 /LPF (0-2); RBC Urine 0-2 /HPF (0-2); Squamous Epithelial Cell Urine 0-2 /HPF (0-2); WBC Urine 0-5 /HPF (0-5)
[2023-06-19 12:46] LABS: Estimated Average Glucose 114 mg/dL; Hemoglobin A1c % 5.6 % (<6.0)
[2023-06-19 13:39] LABS: Microalbum/Creatinine Ratio Ur 5.1 ug/mg cr (<30)
[2023-06-19 13:43] LABS: Alanine Aminotransferase 35 U/L (0-40); Albumin Level 3.9 g/dL (3.5-5.0); Alkaline Phosphatase 84 U/L (39-117); Anion Gap 14 (12-20); Aspartate Amino Transferase 41 U/L (5-37); Bilirubin Total 0.5 mg/dL (0.0-1.0); Blood Urea Nitrogen 23 mg/dL (9-16); Calcium 10.2 mg/dL (8.4-10.2); Carbon Dioxide 26 mmol/L (22-29); Chloride 105 mmol/L (96-108); Cholesterol 120 mg/dL (<200); Estimated Glomerular Filt Rate > 60; Glucose Fasting 85 mg/dL (60-99); HDL Cholesterol 29 mg/dL (>40); LDL Cholesterol Calculated 70 mg/dL (<100); Magnesium 2.2 mg/dL (1.6-2.6); Potassium 4.1 mmol/L (3.3-5.1); Sodium 141 mmol/L (135-145); Triglycerides 109 mg/dL (<150)
== END 2023-06-19 11:30 | disposition home or self-care (01) ==
LOC: HO.LNP 11:29
PROVIDERS: Visit Provider Internal Medicine
DX: E11.311 Type 2 diabetes mellitus with unspecified diabetic retinopathy with macular edema (principal); I11.0 Hypertensive heart disease with heart failure; I50.22 Chronic systolic (congestive) heart failure; E83.42 Hypomagnesemia; Z12.5 Encounter for screening for malignant neoplasm of prostate
CPT/HCPCS: 80053; 80061; 81001; 82043; 82570; 83036; 83735; 84153; 85025

== ENCOUNTER 2023-08-01 09:52 | Outpatient (REF) | payer MEDICARE, OTHER, SELFPAY ==
--- NOTE | ~2023-08-01 | MR_ITS ---
EXAMINATION: MR CERVICAL SPINE WITHOUT CONTRAST LUMBAR SPINE WITHOUT CONTRAST CLINICAL INFORMATION: Low back pain, left shoulder pain, finger numbness COMPARISON: CT abdomen pelvis 06/20/2020 TECHNIQUE: MRI of the cervical and lumbar spine was obtained using routine sequences without contrast. FINDINGS: CERVICAL SPINE: The craniocervical junction is intact. The cervical lordosis is preserved. There is no significant spondylolisthesis. Vertebral body heights are normal without acute compression fracture. No suspicious osseous lesion. Diffuse disc desiccation with moderate C6-C7 disc height loss. There are multilevel degenerative changes with level by level detail as follows: C2-C3: Mild bilateral facet arthrosis without spinal canal or neural foraminal stenosis. C3-C4: Right greater than left facet arthrosis without spinal canal or neural foraminal stenosis. C4-C5: Right greater than left facet arthrosis with uncovertebral spurring. No spinal canal stenosis. Moderate right without left neural foraminal stenosis. C5-C6: Right greater than left uncovertebral joint hypertrophy and mild bilateral facet arthrosis. No spinal canal stenosis. Moderate to severe right and minimal left neural foraminal narrowing. C6-C7: Disc osteophyte complex with bilateral uncovertebral joint hypertrophy and mild facet arthrosis. No spinal canal stenosis. Moderate right and mild to moderate left neural foraminal stenosis. C7-T1: No spinal canal or neural foraminal stenosis. No cord signal abnormality within limitations of motion artifact. No epidural fluid collection, mass, or hematoma. No significant abnormalities of the paraspinal musculature. The flow voids of the major cervical vessels are maintained. Partially retropharyngeal right proximal ICA. Partially imaged patchy T2 hyperintensity within the keesha which may be on the basis of chronic microangiopathy. Susceptibility artifact from median sternotomy. LUMBAR SPINE: Postsurgical changes following L3-L4 instrumented posterior interbody fusion. The hardware would be better assessed on CT. Trace lower lumbar levocurvature and preserved lumbar lordosis. Trace anterolisthesis at L4-L5. Vertebral body heights are maintained. There is no suspicious osseous lesion. Disc desiccation and moderate to severe disc height loss at L5-S1 and mild disc height loss at L4-L5 with vacuum disc phenomenon. L4 inferior endplate Schmorl's node with slight endplate edema and mild fatty/edematous endplate changes at L5-S1. Multilevel anterior osteophytic spurring is seen.There are multilevel degenerative changes with level by level detail as follows: L1-L2: Left central disc protrusion with mild to moderate bilateral facet arthrosis and ligamentum flavum thickening. No spinal canal or neural foraminal stenosis. L2-L3: Annular disc bulge, moderate right and mild left facet arthrosis with ligamentum flavum thickening. Mild spinal canal narrowing and abutment along the traversing L3 nerve root in the subarticular zones. Patent neural foramina. L3-L4: Postsurgical changes as above. Disc osteophyte complex and bilateral facet arthrosis with ligamentum flavum thickening. No spinal canal stenosis. Nondiagnostic assessment of the left neural foramen with suspected minimal right neural foraminal encroachment. L4-L5: Annular disc bulge with superimposed broad-based central/subarticular disc protrusion eccentric to the left and moderate bilateral facet arthrosis with ligamentum flavum thickening. Mild spinal canal and left subarticular zone narrowing abutting the traversing left L5 nerve root. Moderate right and mild left neural foraminal stenosis with contact along the exiting/extraforaminal L4 nerve roots. L5-S1: Advanced bilateral facet arthrosis with uncovered posterior disc material and disc osteophyte complex. Mild spinal canal and subarticular zone narrowing with compression of the traversing right S1 nerve root and milder mass effect along the traversing left S1 nerve root. Moderate to severe right neural foraminal stenosis with compression of the exiting right L5 nerve root and mild left neural foraminal stenosis. The conus medullaris terminates at the level of L1-L2. The distal spinal cord is normal in appearance. . No epidural fluid collection, hematoma, or mass. There is moderate fatty atrophy of the paraspinal musculature. Retroperitoneal lymphadenopathy as seen on prior CT. The abdominal aorta is of normal contour and caliber. MR/MR cervical spine wo con IMPRESSION: CERVICAL SPINE: Multilevel cervical spondylosis without significant spinal canal stenosis. Varying degrees of neural foraminal stenosis as described, worst and moderate to severe on the right at C5-C6. LUMBAR SPINE: 1. Postsurgical changes following L3-L4 posterior interbody fusion. 2. Multilevel lumbar spondylosis as described above and most notable at L5-S1 where there is mild spinal canal stenosis and subarticular zone stenosis with compression of the traversing right S1 nerve root, milder mass effect along the traversing left S1 nerve root, and moderate to severe right neural foraminal stenosis with compression of the exiting right L5 nerve root. Additional level by level as above. 3. Retroperitoneal lymphadenopathy as seen on prior CT.
== END 2023-08-01 09:53 | disposition home or self-care (01) ==
LOC: HO.MRI 09:52
PROVIDERS: PCP Internal Medicine; Visit Provider Physician Assistant
DX: M54.50 Low back pain, unspecified (principal); G95.9 Disease of spinal cord, unspecified
CPT/HCPCS: 72141; 72148

== ENCOUNTER → 2023-08-24 23:59 | Outpatient (BNV) | payer MEDICARE, OTHER, SELFPAY ==
--- NOTE | 2023-09-01 18:02 | A.OFFVIS_ITS ---
Intake Intake Visit Reasons: Remote Device Check- [employer] Allergies gabapentin Allergy (Unknown, Verified 01/07/23 13:59) Unknown ibuprofen Adverse Reaction (Mild, Verified 01/07/23 13:59) GI upset omeprazole Adverse Reaction (Mild, Verified 01/07/23 13:59) GI upset acetaminophen [From Vicodin] Adverse Reaction (Unknown, Verified 01/07/23 13:59) GI upset, dizziness, vomiting erythromycin base [ERYTHROMYCIN BASE] Adverse Reaction (Unknown, Verified 01/07/23 13:59) GI PROBLEMS hydrocodone [From Vicodin] Adverse Reaction (Unknown, Verified 01/07/23 13:59) GI upset, dizziness, vomiting PFSH Medical History Diabetic neuropathy Hyperlipidemia Normal colonoscopy DM type 2 (diabetes mellitus, type 2) Type 2 diabetes mellitus with unspecified complications Pulmonary hypertension Left bundle branch block Heart failure with preserved ejection fraction Non-rheumatic aortic stenosis Atherosclerotic cardiovascular disease Gallstones CHF (congestive heart failure) Cardiomyopathy Pacemaker Morbid obesity HTN (hypertension), benign Reflux gastritis Lumbar back pain Surgical History History of coronary artery bypass graft x 3 History of permanent cardiac pacemaker placement (~04/12/20) Family History Father Diabetes Mother Cardiovascular disease Social History Alcohol intake: never Patient Tobacco Use Status: Never used Tobacco Office Procedures Cardiac Device Check Cardiac Device Check Details: Date of service- 08/24/2023 ; Battery life >9 years; normal lead parameters; AP 4.9%; 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 Overall normal device function. [id number] Cardiac Device Interrogation, pacemaker Procedure code (CPT) selection complete Assessment & Plan Assessment & Plan (1) CHF (congestive heart failure): Code(s): I50.9 - Heart failure, unspecified (2) Cardiomyopathy: Code(s): I42.9 - Cardiomyopathy, unspecified Plan x Coding Level of Care Code Procedure Only Diagnoses CHF (congestive heart failure) I50.9 Cardiomyopathy I42.9 CPT Codes Cardiac Device Check - Cardiac Device 12: [id number] Cardiac Device Interrogation, pacemaker ([id number])
== END ==
PROVIDERS: PCP Internal Medicine; Visit Provider Internal Medicine
DX: I42.9 Cardiomyopathy, unspecified (principal); Z95.0 Presence of cardiac pacemaker
CPT/HCPCS: 93294

== ENCOUNTER → 2023-11-23 23:59 | Outpatient (BNV) | payer MEDICARE, OTHER, SELFPAY ==
--- NOTE | 2023-11-25 19:24 | MHC.OFFVIS ---
Intake Intake Visit Reasons: Remote Device Check- [employer] Allergies gabapentin Allergy (Unknown, Verified 01/07/23 13:59) Unknown ibuprofen Adverse Reaction (Mild, Verified 01/07/23 13:59) GI upset omeprazole Adverse Reaction (Mild, Verified 01/07/23 13:59) GI upset acetaminophen [From Vicodin] Adverse Reaction (Unknown, Verified 01/07/23 13:59) GI upset, dizziness, vomiting erythromycin base [ERYTHROMYCIN BASE] Adverse Reaction (Unknown, Verified 01/07/23 13:59) GI PROBLEMS hydrocodone [From Vicodin] Adverse Reaction (Unknown, Verified 01/07/23 13:59) GI upset, dizziness, vomiting PFSH Medical History Diabetic neuropathy Hyperlipidemia Normal colonoscopy DM type 2 (diabetes mellitus, type 2) Type 2 diabetes mellitus with unspecified complications Pulmonary hypertension Left bundle branch block Heart failure with preserved ejection fraction Non-rheumatic aortic stenosis Atherosclerotic cardiovascular disease Gallstones CHF (congestive heart failure) Cardiomyopathy Pacemaker Morbid obesity HTN (hypertension), benign Reflux gastritis Lumbar back pain Surgical History History of coronary artery bypass graft x 3 History of permanent cardiac pacemaker placement (~04/12/20) Family History Father Diabetes Mother Cardiovascular disease Social History Alcohol intake: never Patient Tobacco Use Status: Never used Tobacco Office Procedures Cardiac Device Check Cardiac Device Check Details: Date of service- 11/23/2023 ; Battery life 9 years; normal lead parameters; AP 11%; 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 Overall normal device function. [id number] Cardiac Device Interrogation, pacemaker Procedure code (CPT) selection complete Assessment & Plan Assessment & Plan (1) Complete heart block: Code(s): I44.2 - Atrioventricular block, complete Plan x Coding Level of Care Code Procedure Only Diagnoses Complete heart block I44.2 CPT Codes Cardiac Device Check - Cardiac Device 12: [id number] Cardiac Device Interrogation, pacemaker ([id number])
== END ==
PROVIDERS: PCP Internal Medicine; Visit Provider Internal Medicine
DX: I44.2 Atrioventricular block, complete (principal); Z95.0 Presence of cardiac pacemaker
CPT/HCPCS: 93294

== ENCOUNTER 2023-12-18 11:15 | Outpatient (REF) | payer MEDICARE, OTHER, SELFPAY ==
[2023-12-18 12:37] LABS: Estimated Average Glucose 134 mg/dL; Hemoglobin A1C 149.0682 umol/L; Hemoglobin A1c % 6.3 % (<6.0)
[2023-12-18 13:16] LABS: Alanine Aminotransferase 30 U/L (0-40); Albumin Level 3.7 g/dL (3.5-5.0); Alkaline Phosphatase 84 U/L (39-117); Aspartate Amino Transferase 36 U/L (5-37); Bilirubin Direct 0.2 mg/dL (0.0-0.5); Bilirubin Total 0.6 mg/dL (0.0-1.0); Cholesterol 109 mg/dL (<200); Glucose Fasting 74 mg/dL (60-99); HDL Cholesterol 32 mg/dL (>40); LDL Cholesterol Calculated 63 mg/dL (<100); Total Protein 7.6 g/dL (6.5-8.0); Triglycerides 74 mg/dL (<150)
[2023-12-18 13:43] LABS: Reflex LDLD? No
== END 2023-12-18 11:16 | disposition home or self-care (01) ==
LOC: HO.LNP 11:15
PROVIDERS: Visit Provider Internal Medicine
DX: E11.311 Type 2 diabetes mellitus with unspecified diabetic retinopathy with macular edema (principal); E78.00 Pure hypercholesterolemia, unspecified
CPT/HCPCS: 80061; 80076; 82947; 83036

== ENCOUNTER → 2024-02-22 23:59 | Outpatient (BNV) | payer MEDICARE, OTHER, SELFPAY ==
--- NOTE | 2024-02-26 13:52 | A.OFFVIS_ITS ---
Intake Visit Reasons: Remote Device Check- [employer] Allergies gabapentin Allergy (Unknown, Verified 01/07/23 13:59) Unknown ibuprofen Adverse Reaction (Mild, Verified 01/07/23 13:59) GI upset omeprazole Adverse Reaction (Mild, Verified 01/07/23 13:59) GI upset acetaminophen [From Vicodin] Adverse Reaction (Unknown, Verified 01/07/23 13:59) GI upset, dizziness, vomiting erythromycin base [ERYTHROMYCIN BASE] Adverse Reaction (Unknown, Verified 01/07/23 13:59) GI PROBLEMS hydrocodone [From Vicodin] Adverse Reaction (Unknown, Verified 01/07/23 13:59) GI upset, dizziness, vomiting PFSH Medical History Diabetic neuropathy Hyperlipidemia Normal colonoscopy DM type 2 (diabetes mellitus, type 2) Type 2 diabetes mellitus with unspecified complications Pulmonary hypertension Left bundle branch block Heart failure with preserved ejection fraction Non-rheumatic aortic stenosis Atherosclerotic cardiovascular disease Gallstones CHF (congestive heart failure) Cardiomyopathy Pacemaker Morbid obesity HTN (hypertension), benign Reflux gastritis Lumbar back pain Surgical History History of coronary artery bypass graft x 3 History of permanent cardiac pacemaker placement (~04/12/20) Family History Father Diabetes Mother Cardiovascular disease Social History Alcohol intake: never Patient Tobacco Use Status: Never used Tobacco Office Procedures Cardiac Device Check Cardiac Device Check Details: Date of service- 02/22/2024 ; Battery life >8 years; normal lead parameters; AP 18.2%; 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 Overall normal device function. [id number] Cardiac Device Interrogation, pacemaker Procedure code (CPT) selection complete Assessment & Plan Assessment & Plan (1) Complete heart block: Code(s): I44.2 - Atrioventricular block, complete Category: Medical Plan x Coding Level of Care Code Procedure Only Diagnoses Complete heart block I44.2 CPT Codes Cardiac Device Check - Cardiac Device 12: [id number] Cardiac Device Interrogation, pacemaker ([id number])
== END ==
PROVIDERS: PCP Internal Medicine; Visit Provider Internal Medicine
DX: I44.2 Atrioventricular block, complete (principal); Z95.0 Presence of cardiac pacemaker
CPT/HCPCS: 93294

== ENCOUNTER 2024-05-10 15:09 | Outpatient (AMB) | payer MEDICARE, OTHER, SELFPAY ==
--- NOTE | 2024-05-10 15:45 | MHC.OFFVIS ---
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 Allergies gabapentin Allergy (Unknown, Verified 05/10/24 15:46) Unknown ibuprofen Adverse Reaction (Mild, Verified 05/10/24 15:46) GI upset omeprazole Adverse Reaction (Mild, Verified 05/10/24 15:46) GI upset acetaminophen [From Vicodin] Adverse Reaction (Unknown, Verified 05/10/24 15:46) GI upset, dizziness, vomiting erythromycin base [ERYTHROMYCIN BASE] Adverse Reaction (Unknown, Verified 05/10/24 15:46) GI PROBLEMS hydrocodone [From Vicodin] Adverse Reaction (Unknown, Verified 05/10/24 15:46) GI upset, dizziness, vomiting Medication List - Last Reconciled 05/10/24 by Delia Mcclure [employer] amlodipine 5 mg PO DAILY aspirin (Adult Low Dose Aspirin) 81 mg PO DAILY atorvastatin 40 mg PO DAILY [diabetic foot wear As directed NS] diabetic supplies, miscellan. DM shoes dulaglutide (Trulicity) 1.5 mg (0.5 mL) subcut QWEEK furosemide 20 mg PO DAILY 30 days hydrocodone-acetaminophen 5-325 mg tabs PO insulin glargine (Lantus Solostar U-100 Insulin) units subcut lisinopril 20 mg PO DAILY metoprolol succinate ER 150 mg (3 x 50 mg) PO DAILY sertraline 100 mg PO DAILY 90 days HPI HPI f/u medtronic ck: Details: Wayne is a 74-year-old male past medical history of hypertension, hyperlipidemia, diabetes, CAD, coronary artery bypass grafting 2009, cardiomyopathy, complete heart block status post dual-chamber pacemaker 2019 who presents for follow-up. Today he reports he has been doing well since his last visit 01/07/2023. He denies having any chest discomfort at rest or with activity. No shortness of breath, PND, orthopnea or edema. No lightheadedness, presyncope, syncope, falls. He admits to being mostly sedentary. His activity is limited by back pain. He takes his meds as directed. [facility] Medical History Diabetic neuropathy Hyperlipidemia Normal colonoscopy DM type 2 (diabetes mellitus, type 2) Type 2 diabetes mellitus with unspecified complications Pulmonary hypertension Left bundle branch block Heart failure with preserved ejection fraction Non-rheumatic aortic stenosis Atherosclerotic cardiovascular disease Gallstones CHF (congestive heart failure) Cardiomyopathy Pacemaker Morbid obesity HTN (hypertension), benign Reflux gastritis Lumbar back pain Surgical History History of coronary artery bypass graft x 3 History of permanent cardiac pacemaker placement (~04/12/20) Family History Father Diabetes Mother Cardiovascular disease Social History Alcohol intake: never Patient Tobacco Use Status: Never used Tobacco Review of Systems Const All systems reviewed & are unremarkable except as noted in HPI and below ENT Denies dizziness Card Denies chest pain, Denies chest pain at rest, Denies chest pain with activity, Denies rapid heart rate, Denies pedal edema, Denies edema, Denies leg edema, Denies lightheadedness, Denies palpitations, Denies dyspnea, Denies dyspnea on exertion and Denies orthopnea Resp Denies cough, Denies dyspnea and Denies dyspnea on exertion GI Denies hematochezia and Denies change in stool character Musc Denies abnormal gait, Denies limited range of motion, Denies muscle cramps, Denies muscle weakness, Denies numbness, Denies radiating pain into limb, Denies stiffness and Denies tingling Neuro Denies abnormal gait, Denies dizziness, Denies numbness and Denies tingling Endo Denies palpitations Physical Exam Vital Signs: Last Vital Signs Pulse 70 05/10/24 15:46 BP 130/62 05/10/24 15:46 BMI result Body Mass Index 38.9 Const General: cooperative, healthy appearing, comfortable and no acute distress Orientation/consciousness: patient oriented x3 Neck Neck: Yes normal visual inspection and Yes no JVD Resp Effort & Inspection: normal respiratory effort Auscultation: clear to auscultation bilaterally, no crackles, no rales, no rhonchi and no wheezes Cardio Jugular venous distension: no JVD Rate: regular rate Rhythm: regular rhythm Heart sounds: S1 normal heart sound present, S2 normal heart sound present, Murmur heart sound present (1/6 systolic) and no rubs Neuro General: patient oriented x3 Extrem General: Yes normal to inspection, No no pedal edema and No calf tenderness Psych Appearance: grossly normal Mental Status: mental status grossly normal Speech and movement: Normal speech and movement present Office Procedures Cardiac Device Check Cardiac Device Check Details: Medtronic dual-chamber pacemaker interrogation today, battery 8.4 years, DDD mode, changed to AAI-DDD mode, right atrial threshold 0.75 volts at 0.4 milliseconds, RV threshold 0.75 volts at 0.4 milliseconds, 3 SVT/ST rates 158-160 that occurred on 03/29/2024, no arrhythmias since [id number] Cardiac Device Check, pacemaker dual lead Procedure code (CPT) selection complete EKG Details: Today, read by me, atrial sensed, V paced, poor EKG tracing with much artifact, rate 70 [id number], Complete Assessment & Plan Assessment & Plan (1) Atherosclerotic cardiovascular disease: Code(s): I25.10 - Atherosclerotic heart disease of augustine coronary artery without angina pectoris Category: Medical Plan: History of CAD with coronary artery bypass grafting 2009. Had a normal nuclear stress test in 2018. He denies having any anginal sounding symptoms. He is mostly sedentary due to issues with chronic low back pain. EKG done today shows atrial sensed, ventricular paced rhythm, rate 70. Continue with risk factor modification. Continue meds for stable CAD including aspirin indefinitely. Continue atorvastatin with ideal LDL goal less than 70. Labs done 12/18/2023 showed LDL 63. Continue amlodipine, metoprolol, lisinopril. Blood pressure well controlled at present. Discussed increasing physical activity as tolerated. Signs and symptoms of angina reviewed. Cardiology follow-up 1 year, sooner if needed. (2) CHF (congestive heart failure): Code(s): I50.9 - Heart failure, unspecified Category: Medical Plan: He does not appear fluid overloaded on examination today. He continues on Lasix 20 mg daily. Reviewed low-salt diet. Signs and symptoms of heart failure reviewed. (3) Cardiomyopathy: Code(s): I42.9 - Cardiomyopathy, unspecified Category: Medical Plan: Last echo 01/24/21 with EF 50-55%, echo was unchanged from prior 07/13/2018. Unclear to me if he did have lower EF in the past. He is on meds for neurohormonal modulation including metoprolol XL and lisinopril. Will continue with current med management. (4) Pacemaker: Code(s): Z95.0 - Presence of cardiac pacemaker Category: Medical Plan: Medtronic dual-chamber pacemaker in place. Interrogation today shows device is functioning normally. He has remote monitoring in use. Next office interrogation due 1 year. (5) HTN (hypertension), benign: Code(s): I10 - Essential (primary) hypertension Category: Medical Plan: [place] blood pressure goal less than 130/85. Blood pressure within range today. No med changes made. Continue lisinopril, metoprolol and amlodipine. (6) Aortic valve sclerosis: Code(s): I35.8 - Other nonrheumatic aortic valve disorders Category: Medical Plan: History of aortic valve sclerosis, no stenosis. He does have a slight systolic murmur noted on examination. Will plan a recheck of echo prior to his next visit. Plan Time spent on chart review, documentation, interview and assessment Orders: Orders CA echo transthoracic complete 11 Months I35.8 - Other nonrheumatic aortic valve disorders, I50.32 - Chronic diastolic (congestive) heart failure Coding Level of Care Code Est Pt Level 4 (62382) Diagnoses Atherosclerotic cardiovascular disease I25.10 CHF (congestive heart failure) I50.9 Cardiomyopathy I42.9 Pacemaker Z95.0 HTN (hypertension), benign I10 Aortic valve sclerosis I35.8 CPT Codes Cardiac Device Check - Cardiac Device 2: [id number] Cardiac Device Check, pacemaker dual lead ([id number]) EKG - CPT: 69496-[id number], Complete ([id number]) Time Spent (min) 30
[2024-05-10 15:46] VITALS: BP 130/62; PULSE 70; BMI 38.9
== END 2024-05-10 16:11 | disposition home or self-care (01) ==
PROVIDERS: PCP Internal Medicine; Visit Provider Nurse Practitioner Family
DX: I25.10 Atherosclerotic heart disease of native coronary artery without angina pectoris (principal); I50.9 Heart failure, unspecified; I42.9 Cardiomyopathy, unspecified; Z95.0 Presence of cardiac pacemaker; I10 Essential (primary) hypertension; I35.8 Other nonrheumatic aortic valve disorders
CPT/HCPCS: 93010; 93280; 99214

== ENCOUNTER → 2024-05-10 15:09 | Outpatient (BNVA) | payer MEDICARE, OTHER, SELFPAY | PROVIDERS: PCP Internal Medicine; Visit Provider Nurse Practitioner Family | DX: Z45.018 Encounter for adjustment and management of other part of cardiac pacemaker (principal); I25.10 Atherosclerotic heart disease of native coronary artery without angina pectoris; I11.0 Hypertensive heart disease with heart failure; I50.9 Heart failure, unspecified; I42.9 Cardiomyopathy, unspecified; R94.31 Abnormal electrocardiogram [ECG] [EKG]; I45.4 Nonspecific intraventricular block | CPT/HCPCS: 93005; 93280; 99212 ==

== ENCOUNTER → 2024-05-23 23:59 | Outpatient (BNV) | payer MEDICARE, OTHER, SELFPAY ==
--- NOTE | 2024-05-30 12:43 | MHC.OFFVIS ---
Intake Visit Reasons: Remote device check- Medtronic Allergies gabapentin Allergy (Unknown, Verified 05/10/24 15:46) Unknown ibuprofen Adverse Reaction (Mild, Verified 05/10/24 15:46) GI upset omeprazole Adverse Reaction (Mild, Verified 05/10/24 15:46) GI upset acetaminophen [From Vicodin] Adverse Reaction (Unknown, Verified 05/10/24 15:46) GI upset, dizziness, vomiting erythromycin base [ERYTHROMYCIN BASE] Adverse Reaction (Unknown, Verified 05/10/24 15:46) GI PROBLEMS hydrocodone [From Vicodin] Adverse Reaction (Unknown, Verified 05/10/24 15:46) GI upset, dizziness, vomiting PFSH Medical History Diabetic neuropathy Hyperlipidemia Normal colonoscopy DM type 2 (diabetes mellitus, type 2) Type 2 diabetes mellitus with unspecified complications Pulmonary hypertension Left bundle branch block Heart failure with preserved ejection fraction Non-rheumatic aortic stenosis Atherosclerotic cardiovascular disease Gallstones CHF (congestive heart failure) Cardiomyopathy Pacemaker Morbid obesity HTN (hypertension), benign Reflux gastritis Lumbar back pain Surgical History History of coronary artery bypass graft x 3 History of permanent cardiac pacemaker placement (~04/12/20) Family History Father Diabetes Mother Cardiovascular disease Social History Alcohol intake: never Patient Tobacco Use Status: Never used Tobacco Office Procedures Cardiac Device Check Cardiac Device Check Details: Date of service- 05/23/2024 ; Battery life >8 years; normal lead parameters; AP 18.8%; CELL TOWER CLIMBER <0.1%; no significant arrhythmias. Overall normal device function. [id number] Cardiac Device Interrogation, pacemaker Procedure code (CPT) selection complete Assessment & Plan Assessment & Plan (1) Pacemaker: Code(s): Z95.0 - Presence of cardiac pacemaker Category: Medical (2) Complete heart block: Code(s): I44.2 - Atrioventricular block, complete Category: Medical Plan x Coding Level of Care Code Procedure Only Diagnoses Pacemaker Z95.0 Complete heart block I44.2 CPT Codes Cardiac Device Check - Cardiac Device 12: [id number] Cardiac Device Interrogation, pacemaker ([id number])
== END ==
PROVIDERS: PCP Internal Medicine; Visit Provider Internal Medicine
DX: I44.2 Atrioventricular block, complete (principal); Z95.0 Presence of cardiac pacemaker
CPT/HCPCS: 93294

== ENCOUNTER 2024-06-10 14:55 | Emergency (ER) | payer MEDICARE, OTHER, SELFPAY ==
--- NOTE | ~2024-06-10 | CT_ITS ---
EXAMINATION: CT ANGIOGRAM HEAD CT ANGIOGRAM NECK CLINICAL INFORMATION: Receptive aphasia. COMPARISON: None available. TECHNIQUE: Initial noncontrast char belt operator imaging of the head and neck was performed. Noncontrast head CT was also performed. Test bolus sequences followed by intravenous administration 75 mL of Omnipaque 350. Helical imaging was performed in the axial plane from the aortic arch to the skull vertex. Delayed postcontrast imaging of the head was also performed. The data was processed at the product/device technologist's workstation for generation of MIP sequences. Angled MIPs and volume rendered reformatted images were also generated at an offline 3D workstation. Stenoses are assessed in accordance with NASCET criteria unless otherwise indicated. This CT examination was performed using dose optimization techniques as appropriate, variously including the following: *Automated exposure control. *Adjustment of mA and/or kV according to patient size (this includes techniques or standardized protocols for targeted exams where dose is matched to indication/reason for exam; i.e. extremities or head). *Use of iterative reconstruction technique. DLP: 2562 mGy-cm FINDINGS: CT Head: There is no evidence of acute intracranial hemorrhage or edematous territorial infarction. Rae-white matter differentiation is preserved. Confluent hypoattenuation in the periventricular and deep white matter. The ventricles are normal in morphology and size. No evidence for obstructive hydrocephalus. No abnormal mass effect or midline shift. No extra-axial fluid collections. No pathologic intra-axial enhancement or regional oligemia. No acute soft tissue or osseous abnormalities. Mild mucosal thickening of the paranasal sinuses. The mastoid air cells and middle ear cavities are clear. Multifocal odontogenic enamel erosions and periapical lucencies. Bilateral lens extractions. CT Neck: The thyroid gland and remaining cervical soft tissues are within normal limits. Partial straightening of the normal cervical lordosis. Advanced degenerative disc disease at C6-C7. Mild to moderate degenerative disc disease at all additional levels. Facet and uncovertebral joint arthropathy leads to osseous encroachment on the neural foramina from C3-C7. CT Upper Chest: Left pectoral pacemaker. Changes of prior median sternotomy for CABG. The visualized lung apices and upper mediastinum are within normal limits. Coronary artery calcifications: Present - moderate. Neck CTA: Aortic Arch: Normal contour and caliber with moderate calcific atherosclerotic disease. Classic 3 vessel branching pattern of the aortic arch. Great Vessel Origins: No significant stenosis of the branch origins. Right Common Carotid Artery: No focal stenosis or occlusion. Cervical Right Internal Carotid Artery: Calcific atherosclerotic disease of the carotid bulb and proximal internal carotid artery causing 70% stenosis. Left Common Carotid Artery: No focal stenosis or occlusion. Cervical Left Internal Carotid Artery: Calcific atherosclerotic disease of the carotid bulb and proximal internal carotid artery causing 60% stenosis. Cervical Right Vertebral Artery: Co-dominant. Moderate atherosclerotic stenosis of the origin. No additional focal stenosis or occlusion. Cervical Left Vertebral Artery: Co-dominant. Mild atherosclerotic stenosis of the origin. No additional focal stenosis or occlusion. Brain CTA: Intracranial Internal Carotid Arteries: Calcific atherosclerotic disease of the intracranial internal carotid arteries without occlusion or flow-limiting stenosis. Right Anterior Cerebral Artery: Normal A1 segment. Normal opacification of the distal ROSA segments. Left Anterior Cerebral Artery: Normal A1 segment. Normal opacification of the distal ROSA segments. Anterior Communicating Artery: Normal. Right Middle Cerebral Artery: Normal M1 segment of the MCA without focal stenosis or occlusion. Normal arborization of the distal segments. Left Middle Cerebral Artery: Normal M1 segment of the MCA without focal stenosis or occlusion. Normal arborization of the distal segments. Right Vertebral Artery: Normal V4 segment. Normal opacification of the proximal segments of the posterior inferior cerebellar artery. Left Vertebral Artery: Normal V4 segment. Normal opacification of the proximal segments of the posterior inferior cerebellar artery. Basilar Artery: Normal without focal stenosis or occlusion. Normal appearance of the proximal superior cerebellar arteries. Right Posterior Cerebral Artery: Normal P1 segment. Normal opacification of the distal SUPERVISOR SHUTTLE VENEERING segments. Left Posterior Cerebral Artery: Normal P1 segment. Normal opacification of the distal SUPERVISOR SHUTTLE VENEERING segments. Normal opacification of the superior sagittal, straight, transverse, and sigmoid sinuses. CT/CT angio head neck IMPRESSION: 1. No evidence of acute intracranial hemorrhage or edematous territorial infarction. Moderate to extensive underlying microangiopathy. 2. CTA of the head and neck without proximal occlusion. Atherosclerotic disease causes 70% stenosis of the origin of the right ICA and 60% stenosis of the origin of the left ICA. No additional flow-limiting stenoses. 3. Moderate multilevel degenerative spondyloarthropathy of the cervical spine. Electronically signed by: Jessee Barahona DO 06/10/2024 07:50 PM EDT
[2024-06-10 15:04] VITALS: BP 128/76; PULSE 60; O2SAT 99; BMI 40.8
[2024-06-10 15:09] VITALS: BP 153/46; PULSE 62; RESP 18; TEMP 36.3; O2SAT 99
--- NOTE | 2024-06-10 16:15 | ED.NEUROSD ---
HPI - Neuro Symptoms/Deficit General Chief Complaint: Neuro Symptoms/Deficit Stated Complaint: PT FEELS LACK OF CONCEN/SLOW SPEECH,FAM DONT AGREE Time Seen by Provider: 06/10/24 16:15 Source: patient Limitations: no limitations History of Present Illness ED Provider: Reina Garcia PA-C HPI Narrative: 74-year-old male with a history of complete heart block, V-tach now status post pacer, diabetes, hyperlipidemia, hypertension, heart failure with preserved ejection fraction, morbid obesity, arthritis on p.r.n. Vicodin and GERD presents with confusion. Patient states his sleep cycle is erratic, he often is up until 3-4 in the morning, then wakes at 1 in the afternoon. Today, he did wake up at 1 in the afternoon, he felt confused while putting his socks away, as if ?he could not make a decision?. He called his daughter who in turn called EMS. This episode resolved, it lasted approximately an hour and a half. Per the daughter, while talking to her father on the phone, he did not have any speech impediment. Related Data Home Medications ?Medication ?Instructions ?Recorded ?Confirmed aspirin 81 mg tablet,delayed 81 mg PO DAILY 06/21/20 05/10/24 release (Adult Low Dose Aspirin) lisinopril 20 mg tablet 20 mg PO DAILY 04/08/22 05/10/24 insulin glargine 100 unit/mL (3 unit subcut 01/07/23 05/10/24 mL) subcutaneous pen (Lantus Solostar U-100 Insulin) hydrocodone 5 mg-acetaminophen 325 tab PO 05/10/24 05/10/24 mg tablet Previous Rx's ?Medication ?Instructions ?Recorded diabetic foot wear #1 ea 09/15/20 diabetic supplies, miscellan. #1 ea 09/15/20 furosemide 20 mg tablet 20 mg PO DAILY 30 days #30 tabs 12/14/20 dulaglutide 1.5 mg/0.5 mL 1.5 mg (0.5 mL) subcut QWEEK #2 mL 04/03/21 subcutaneous pen injector (Trulicity) amlodipine 5 mg tablet 5 mg PO DAILY #120 tabs 04/15/21 sertraline 100 mg tablet 100 mg PO DAILY 90 days #90 tabs 08/11/22 metoprolol succinate 50 mg 150 mg (3 x 50 mg) PO DAILY #270 08/30/22 tablet,extended release 24 hr tabs atorvastatin 40 mg tablet 40 mg PO DAILY #90 tabs 10/21/23 Allergies Allergy/AdvReac Type Severity Reaction Status Date / Time gabapentin Allergy Unknown Unknown Verified 06/10/24 15:07 ibuprofen AdvReac Mild GI upset Verified 06/10/24 15:07 omeprazole AdvReac Mild GI upset Verified 06/10/24 15:07 acetaminophen [From Vicodin] AdvReac Unknown GI upset, Verified 06/10/24 15:07 dizziness, vomiting erythromycin base AdvReac Unknown GI PROBLEMS Verified 06/10/24 15:07 [ERYTHROMYCIN BASE] hydrocodone [From Vicodin] AdvReac Unknown GI upset, Verified 06/10/24 15:07 dizziness, vomiting Review of Systems Review of Systems: Yes all other systems are reviewed and are negative Constitutional: Constitutional: Denies fatigue and Denies fever(s) Cardiovascular: Cardiovascular: Denies chest pain and Denies dyspnea Respiratory: Respiratory: Denies cough and Denies dyspnea Gastrointestinal: Gastrointestinal: Denies abdominal pain, Denies diarrhea, Denies nausea and Denies vomiting Genitourinary: Genitourinary: Denies dysuria Musculoskeletal: Musculoskeletal: Reports arthralgias Neurologic: Denies confusion Psychiatric: Psychiatric: Denies confusion Endocrine: Endocrine: Denies fatigue [facility] Past Medical History Attestation statement: The following information was validated with the patient. Medical History Diabetic neuropathy Hyperlipidemia Normal colonoscopy DM type 2 (diabetes mellitus, type 2) Type 2 diabetes mellitus with unspecified complications Pulmonary hypertension Left bundle branch block Heart failure with preserved ejection fraction Non-rheumatic aortic stenosis Atherosclerotic cardiovascular disease Gallstones CHF (congestive heart failure) Cardiomyopathy Pacemaker Morbid obesity HTN (hypertension), benign Reflux gastritis Lumbar back pain Surgical History History of coronary artery bypass graft x 3 History of permanent cardiac pacemaker placement (~04/12/20) Family History Family History Father Diabetes Mother Cardiovascular disease Social History Social History Alcohol intake: never Patient Tobacco Use Status: Never used Tobacco Advance Directives: No Advance Directives Information Provided: No Do you have a plan to hurt others: No Plan Physical Exam Vital Signs: Vital Signs: Last Vital Signs Temp 98.5 F 06/10/24 20:47 Pulse 73 06/10/24 20:47 Resp 18 06/10/24 20:47 BP 145/42 H 06/10/24 20:47 Pulse Ox 99 06/10/24 20:47 O2 Del Method Room Air 06/10/24 20:47 BMI result Body Mass Index 40.8 Const: Other: Alert, well in appearance General: No confusion Orientation/consciousness: patient oriented x3 and No confusion Resp: Effort & Inspection: normal respiratory effort Cardio: Other: Normal peripheral perfusion Skin: Other: Warm dry no rash Neuro: General: patient oriented x3, gait normal, moves all extremities, no focal motor deficits, CN's II-XI intact bilaterally, No confusion and other (Normal speech) Psych: Other: Calm cooperative Medications Administered Discontinued Medications Generic Name Dose Route Start Last Admin Trade Name Sharan PRN Reason Stop Dose Admin Iohexol 100 ml 06/10/24 18:42 06/10/24 18:42 Iohexol 350 Mg/Ml 100 Ml Infus..Btl IV 06/10/24 18:43 70 ml ONCE ONE Administration Medical Decision Making Medical Decision Making MDM Narrative: 74-year-old male with a history of complete heart block, V-tach now status post pacer, diabetes, hyperlipidemia, hypertension, heart failure with preserved ejection fraction, morbid obesity, arthritis on p.r.n. Vicodin and GERD presents with confusion. Patient states his sleep cycle is erratic, he often is up until 3-4 in the morning, then wakes at 1 in the afternoon. Today, he did wake up at 1 in the afternoon, he felt confused while putting his socks away, as if ?he could not make a decision?. He called his daughter who in turn called EMS. This episode resolved, it lasted approximately an hour and a half. Per the daughter, while talking to her father on the phone, he did not have any speech impediment. Problem: Age, vascular disease, pain on Vicodin History: Per patient and family I have considered the following differential diagnoses: Delirium, medication induced confusion, CVA, UTI, new onset dementia Plan: The patient's symptoms are very nonspecific, they were transient, it is not quite the picture of receptive aphasia, he has numerous vascular risk factors, I am going to obtain CT scan and angiogram to rule out CVA. The patient just started taking the Vicodin again, perhaps the opiate is causing confusion. It also sounds as if his sleep cycle is disrupted, this could be part of the picture. This could also be early onset dementia. We will be screening labs and a urinalysis. I have independently reviewed the following tests: Labs: No leukocytosis, not anemic, no electrolyte abnormality, urine not infected, CT angiogram head and neck:CT ANGIOGRAM HEAD CT ANGIOGRAM NECK CLINICAL INFORMATION: Receptive aphasia. COMPARISON: None available. TECHNIQUE: Initial noncontrast basket patcher imaging of the head and neck was performed. Noncontrast head CT was also performed. Test bolus sequences followed by intravenous administration 75 mL of Omnipaque 350. Helical imaging was performed in the axial plane from the aortic arch to the skull vertex. Delayed postcontrast imaging of the head was also performed. The data was processed at the agricultural engineering technologist's workstation for generation of MIP sequences. Angled MIPs and volume rendered reformatted images were also generated at an offline 3D workstation. Stenoses are assessed in accordance with NASCET criteria unless otherwise indicated. This CT examination was performed using dose optimization techniques as appropriate, variously including the following: *Automated exposure control. *Adjustment of mA and/or kV according to patient size (this includes techniques or standardized protocols for targeted exams where dose is matched to indication/reason for exam; i.e. extremities or head). *Use of iterative reconstruction technique. DLP: 2562 mGy-cm FINDINGS: CT Head: There is no evidence of acute intracranial hemorrhage or edematous territorial infarction. Rae-white matter differentiation is preserved. Confluent hypoattenuation in the periventricular and deep white matter. The ventricles are normal in morphology and size. No evidence for obstructive hydrocephalus. No abnormal mass effect or midline shift. No extra-axial fluid collections. No pathologic intra-axial enhancement or regional oligemia. No acute soft tissue or osseous abnormalities. Mild mucosal thickening of the paranasal sinuses. The mastoid air cells and middle ear cavities are clear. Multifocal odontogenic enamel erosions and periapical lucencies. Bilateral lens extractions. CT Neck: The thyroid gland and remaining cervical soft tissues are within normal limits. Partial straightening of the normal cervical lordosis. Advanced degenerative disc disease at C6-C7. Mild to moderate degenerative disc disease at all additional levels. Facet and uncovertebral joint arthropathy leads to osseous encroachment on the neural foramina from C3-C7. CT Upper Chest: Left pectoral pacemaker. Changes of prior median sternotomy for CABG. The visualized lung apices and upper mediastinum are within normal limits. Coronary artery calcifications: Present - moderate. Neck CTA: Aortic Arch: Normal contour and caliber with moderate calcific atherosclerotic disease. Classic 3 vessel branching pattern of the aortic arch. Great Vessel Origins: No significant stenosis of the branch origins. Right Common Carotid Artery: No focal stenosis or occlusion. Cervical Right Internal Carotid Artery: Calcific atherosclerotic disease of the carotid bulb and proximal internal carotid artery causing 70% stenosis. Left Common Carotid Artery: No focal stenosis or occlusion. Cervical Left Internal Carotid Artery: Calcific atherosclerotic disease of the carotid bulb and proximal internal carotid artery causing 60% stenosis. Cervical Right Vertebral Artery: Co-dominant. Moderate atherosclerotic stenosis of the origin. No additional focal stenosis or occlusion. Cervical Left Vertebral Artery: Co-dominant. Mild atherosclerotic stenosis of the origin. No additional focal stenosis or occlusion. Brain CTA: Intracranial Internal Carotid Arteries: Calcific atherosclerotic disease of the intracranial internal carotid arteries without occlusion or flow-limiting stenosis. Right Anterior Cerebral Artery: Normal A1 segment. Normal opacification of the distal ROSA segments. Left Anterior Cerebral Artery: Normal A1 segment. Normal opacification of the distal ROSA segments. Anterior Communicating Artery: Normal. Right Middle Cerebral Artery: Normal M1 segment of the MCA without focal stenosis or occlusion. Normal arborization of the distal segments. Left Middle Cerebral Artery: Normal M1 segment of the MCA without focal stenosis or occlusion. Normal arborization of the distal segments. Right Vertebral Artery: Normal V4 segment. Normal opacification of the proximal segments of the posterior inferior cerebellar artery. Left Vertebral Artery: Normal V4 segment. Normal opacification of the proximal segments of the posterior inferior cerebellar artery. Basilar Artery: Normal without focal stenosis or occlusion. Normal appearance of the proximal superior cerebellar arteries. Right Posterior Cerebral Artery: Normal P1 segment. Normal opacification of the distal AIR TRAFFIC CONTROL OPERATOR segments. Left Posterior Cerebral Artery: Normal P1 segment. Normal opacification of the distal AIR TRAFFIC CONTROL OPERATOR segments. Normal opacification of the superior sagittal, straight, transverse, and sigmoid sinuses. CT/CT angio head neck IMPRESSION: 1. No evidence of acute intracranial hemorrhage or edematous territorial infarction. Moderate to extensive underlying microangiopathy. 2. CTA of the head and neck without proximal occlusion. Atherosclerotic disease causes 70% stenosis of the origin of the right ICA and 60% stenosis of the origin of the left ICA. No additional flow-limiting stenoses. 3. Moderate multilevel degenerative spondyloarthropathy of the cervical spine. Electronically signed by: Jessee Barahona DO 06/10/2024 07:50 PM EDT Lab Data 06/10/24 16:58 06/10/24 17:57 Labs: Lab Results 06/10/24 06/10/24 Range/Units 16:58 17:57 WBC 7.9 (4.8-10.8) X10*3/uL RBC 4.45 L (4.60-5.80) X10*6/uL Hgb 13.2 L (14.0-18.0) g/dl Hct 39.6 L (42.0-52.0) % MCV 89.0 (80.0-98.0) fL MCH 29.7 (27.0-33.0) pg MCHC 33.3 (31.0-36.0) g/dl RDW 14.0 (11.0-16.0) % Plt Count 159 L (160-400) X10*3/uL MPV 9.2 L (9.4-12.4) fL Immature Gran % (Auto) 0.3 (0.0-0.4) % Neut % (Auto) 65.8 (45-73) % Lymph % (Auto) 20.5 (20-40) % Mayes % (Auto) 7.2 (2-11) % Eos % (Auto) 4.7 H (0-4) % Baso % (Auto) 1.5 (0-2) % Lymph # (Auto) 1.6 (1.2-4.9) X10*3/uL Mayes # (Auto) 0.6 (0.1-1.2) X10*3/uL Eos # (Auto) 0.4 (0.0-0.4) X10*3/uL Baso # (Auto) 0.1 (0.0-0.2) X10*3/uL Abs Immat Gran (auto) 0.02 (0.00-0.03) X10*3/uL Absolute Neuts (auto) 5.2 (2.0-8.3) x10*3/uL Absolute Nucleated RBC 0.000 (0.0-0.012) X10*3/uL Nucleated RBC % (auto) 0.0 (0.0-0.2) /100WBC Sodium 142 (135-145) mmol/L Potassium 4.2 (3.3-5.1) mmol/L Chloride 106 (96-108) mmol/L Carbon Dioxide 25 (22-29) mmol/L Anion Gap 15 (12-20) BUN 17 H (9-16) mg/dL Creatinine 0.96 (0.5-1.4) mg/dL Estim Creat Clear Calc 84.3 Estimated GFR > 60 Random Glucose 60 (60-115) mg/dL Calcium 9.6 (8.4-10.2) mg/dL Magnesium 2.2 (1.6-2.6) mg/dL Total Bilirubin 0.6 (0.0-1.0) mg/dL AST 34 (5-37) U/L ALT 27 (0-40) U/L Alkaline Phosphatase 73 (39-117) U/L Total Protein 7.5 (6.5-8.0) g/dL Albumin 3.7 (3.5-5.0) g/dL NIH Stroke Scale Level of Consciousness: Alert Level of Consciousness Questions: Answers both questions correctly Level of Consciousness Commands: Performs both tasks correctly Best Gaze: Normal Visual: No visual loss Facial Palsy: Normal Motor Arm (Right): No drift Motor Arm (Left): No drift Motor Leg (Right): No drift Motor Leg (Left): No drift Limb Ataxia: Absent Sensory: Normal Best Language: No aphasia Dysarthia: Normal Extinction and Inattention: No abnormality Score: 0 Discharge Plan Discharge Clinical Impression: Acute confusion Patient Disposition: Home, Self-Care Instructions: Acute Delirium (ED) Additional Instructions: You had an extensive workup. You were not having a stroke, a CT scan of your brain followed by angiogram of your head and neck, were completed and there were no acute findings. You have known underlying vessel disease of your carotids, from your report, this is already being followed. All of your labs were normal. I do not have an explanation as to why you felt confused upon waking this morning. Follow up with your primary care provider, call them tomorrow to schedule an appointment. Prescriptions: No Action furosemide 20 mg tablet 20 mg PO DAILY 30 Days Qty: 30 2RF Trulicity 1.5 mg/0.5 mL pen injector 1.5 mg subcut QWEEK Qty: 2 3RF amlodipine 5 mg tablet 5 mg PO DAILY Qty: 120 0RF sertraline 100 mg tablet 100 mg PO DAILY 90 Days Qty: 90 1RF metoprolol succinate 50 mg tablet extended release 24 hr 150 mg PO DAILY Qty: 270 3RF atorvastatin 40 mg tablet 40 mg PO DAILY Qty: 90 3RF (DME) diabetic foot wear See Rx Instructions .Route .MEDSUPPLY Qty: 1 0RF Rx Instructions: As directed (DME) diabetic supplies, miscellan. Misc See Rx Instructions .ROUTE .MEDSUPPLY Qty: 1 0RF Rx Instructions: DM shoes aspirin [Adult Low Dose Aspirin] 81 mg tablet,delayed release (DR/EC) 81 mg PO DAILY lisinopril 20 mg tablet 20 mg PO DAILY insulin glargine [Lantus Solostar U-100 Insulin] 100 unit/mL (3 mL) insulin pen subcut hydrocodone-acetaminophen 5-325 mg tablet PO Interventions: ED Discharge Assessment Last Done: 06/10/24 20:47 Discharge Date/Time: 06/10/24 20:49 Print Language: Malay
[2024-06-10 16:16] VITALS: BP 138/42; PULSE 63; RESP 14; O2SAT 99
[2024-06-10 17:03] LABS: Basophils Absolute Auto 0.1 X10*3/uL (0.0-0.2); Basophils Percent Auto 1.5 % (0-2); Eosinophils Absolute Auto 0.4 X10*3/uL (0.0-0.4); Eosinophils Percent Auto 4.7 % (0-4); Hematocrit 39.6 % (42.0-52.0); Hemoglobin 13.2 g/dl (14.0-18.0); Imm Gran Abs Auto 0.02 X10*3/uL (0.00-0.03); Imm Gran Pct Auto 0.3 % (0.0-0.4); Lymphocytes Absolute Auto 1.6 X10*3/uL (1.2-4.9); Lymphocytes Percent Auto 20.5 % (20-40); MANUAL DIFF FLAG NO; Mean Corpuscular HGB Conc 33.3 g/dl (31.0-36.0); Mean Corpuscular Hemoglobin 29.7 pg (27.0-33.0); Mean Platelet Volume 9.2 fL (9.4-12.4); Monocytes Absolute Auto 0.6 X10*3/uL (0.1-1.2); Monocytes Percent Auto 7.2 % (2-11); Neutrophils Absolute Auto 5.2 x10*3/uL (2.0-8.3); Neutrophils Percent Auto 65.8 % (45-73); Platelet Count 159 X10*3/uL (160-400); Red Blood Count 4.45 X10*6/uL (4.60-5.80); White Blood Count 7.9 X10*3/uL (4.8-10.8)
[2024-06-10 18:15] LABS: Alanine Aminotransferase 27 U/L (0-40); Albumin Level 3.7 g/dL (3.5-5.0); Alkaline Phosphatase 73 U/L (39-117); Anion Gap 15 (12-20); Aspartate Amino Transferase 34 U/L (5-37); Bilirubin Total 0.6 mg/dL (0.0-1.0); Blood Urea Nitrogen 17 mg/dL (9-16); Calcium 9.6 mg/dL (8.4-10.2); Carbon Dioxide 25 mmol/L (22-29); Chloride 106 mmol/L (96-108); Creatinine Clr Calc Pharmacy 84.3; Estimated Glomerular Filt Rate > 60; Glucose Random 60 mg/dL (60-115); Magnesium 2.2 mg/dL (1.6-2.6); Potassium 4.2 mmol/L (3.3-5.1); Sodium 142 mmol/L (135-145); Total Protein 7.5 g/dL (6.5-8.0)
[2024-06-10] MEDS: iohexoL 350 MG/ML 100 ML INFUS..BTL IV (18:42)
[2024-06-10 18:46] VITALS: BP 145/42; PULSE 73; RESP 18; O2SAT 99
[2024-06-10 20:47] VITALS: BP 145/42; PULSE 73; RESP 18; TEMP 36.9; O2SAT 99
== END 2024-06-10 20:49 | disposition home or self-care (01) ==
PROVIDERS: Physician Assistant Medical; Emergency Provider Internal Medicine; PCP Internal Medicine
DX: R41.0 Disorientation, unspecified (principal); R47.01 Aphasia; I10 Essential (primary) hypertension; Z79.899 Other long term (current) drug therapy
CPT/HCPCS: 36415; 70496; 70498; 80053; 83735; 85025; 99283; 99284; Q9967

== ENCOUNTER 2024-06-18 10:54 | Outpatient (REF) | payer MEDICARE, OTHER, SELFPAY ==
[2024-06-18 10:58] LABS: MANUAL DIFF FLAG NO
[2024-06-18 11:28] LABS: Basophils Absolute Auto 0.2 X10*3/uL (0.0-0.2); Basophils Percent Auto 1.8 % (0-2); Eosinophils Absolute Auto 0.4 X10*3/uL (0.0-0.4); Eosinophils Percent Auto 4.2 % (0-4); Hematocrit 43.8 % (42.0-52.0); Imm Gran Abs Auto 0.04 X10*3/uL (0.00-0.03); Imm Gran Pct Auto 0.4 % (0.0-0.4); Lymphocytes Percent Auto 29.5 % (20-40); Mean Corpuscular Hemoglobin 29.2 pg (27.0-33.0); Mean Corpuscular Volume 91.3 fL (80.0-98.0); Mean Platelet Volume 10.4 fL (9.4-12.4); Monocytes Absolute Auto 0.8 X10*3/uL (0.1-1.2); Monocytes Percent Auto 7.9 % (2-11); Neutrophils Absolute Auto 5.7 x10*3/uL (2.0-8.3); Neutrophils Percent Auto 56.2 % (45-73); Platelet Count 220 X10*3/uL (160-400); Red Cell Distribution Width 13.9 % (11.0-16.0); White Blood Count 10.2 X10*3/uL (4.8-10.8)
[2024-06-18 12:07] LABS: PSA,Total (Free>4and<10) 1.15 ng/mL (0.00-4.00)
[2024-06-18 12:30] LABS: Estimated Average Glucose 120 mg/dL; Hemoglobin A1C 200.7398 umol/L; Hemoglobin A1c % 5.8 % (<6.0); Total Hemoglobin (HGBA1C) 4985.9677 umol/L
[2024-06-18 12:37] LABS: Alanine Aminotransferase 29 U/L (0-40); Albumin Level 3.9 g/dL (3.5-5.0); Alkaline Phosphatase 83 U/L (39-117); Anion Gap 13 (12-20); Aspartate Amino Transferase 34 U/L (5-37); Bilirubin Total 0.6 mg/dL (0.0-1.0); Blood Urea Nitrogen 21 mg/dL (9-16); Carbon Dioxide 28 mmol/L (22-29); Chloride 105 mmol/L (96-108); Cholesterol 132 mg/dL (<200); Estimated Glomerular Filt Rate > 60; Glucose Fasting 50 mg/dL (60-99); HDL Cholesterol 34 mg/dL (>40); LDL Cholesterol Calculated 77 mg/dL (<100); Potassium 3.9 mmol/L (3.3-5.1); Sodium 142 mmol/L (135-145); Total Protein 8.2 g/dL (6.5-8.0); Triglycerides 108 mg/dL (<150)
== END 2024-06-18 10:55 | disposition home or self-care (01) ==
LOC: HO.LNP 10:54
PROVIDERS: Visit Provider Internal Medicine
DX: Z00.00 Encounter for general adult medical examination without abnormal findings (principal); E11.311 Type 2 diabetes mellitus with unspecified diabetic retinopathy with macular edema; I50.22 Chronic systolic (congestive) heart failure; I10 Essential (primary) hypertension; E83.42 Hypomagnesemia; Z12.5 Encounter for screening for malignant neoplasm of prostate
CPT/HCPCS: 80053; 80061; 83036; 84153; 85025

== ENCOUNTER 2024-06-25 15:12 | Outpatient (REF) | payer MEDICARE, OTHER, SELFPAY ==
[2024-06-25 15:18] LABS: Appearance Urine Clear; Color Urine Yellow; Glucose Urine UA Negative (Negative); Leukocyte Esterase Urine Negative (Negative); Nitrite Urine Negative (Negative); Urine Blood Negative (Negative); Urine Ketones Negative (Negative); Urine Protein Negative (Neg-Trace)
[2024-06-25 15:54] LABS: Creatinine Urine 59.83 mg/dL
[2024-06-25 15:56] LABS: Bacteria Urine None Seen (None Seen); Hyaline Casts Urine 0-2 /LPF (0-2); RBC Urine 0-2 /HPF (0-2); Squamous Epithelial Cell Urine 0-2 /HPF (0-2); WBC Urine 0-5 /HPF (0-5)
== END 2024-06-25 15:13 | disposition home or self-care (01) ==
LOC: HO.LNP 15:12
PROVIDERS: Visit Provider Internal Medicine
DX: E11.311 Type 2 diabetes mellitus with unspecified diabetic retinopathy with macular edema (principal); I10 Essential (primary) hypertension
CPT/HCPCS: 81001; 82043; 82570

== ENCOUNTER → 2024-08-22 23:59 | Outpatient (BNV) | payer MEDICARE, OTHER, SELFPAY ==
--- NOTE | 2024-09-04 12:17 | MHC.OFFVIS ---
Intake Visit Reasons: Remote device check- [employer] Allergies gabapentin Allergy (Unknown, Verified 06/10/24 15:07) Unknown ibuprofen Adverse Reaction (Mild, Verified 06/10/24 15:07) GI upset omeprazole Adverse Reaction (Mild, Verified 06/10/24 15:07) GI upset acetaminophen [From Vicodin] Adverse Reaction (Unknown, Verified 06/10/24 15:07) GI upset, dizziness, vomiting erythromycin base [ERYTHROMYCIN BASE] Adverse Reaction (Unknown, Verified 06/10/24 15:07) GI PROBLEMS hydrocodone [From Vicodin] Adverse Reaction (Unknown, Verified 06/10/24 15:07) GI upset, dizziness, vomiting PFSH Medical History Diabetic neuropathy Hyperlipidemia Normal colonoscopy DM type 2 (diabetes mellitus, type 2) Type 2 diabetes mellitus with unspecified complications Pulmonary hypertension Left bundle branch block Heart failure with preserved ejection fraction Non-rheumatic aortic stenosis Atherosclerotic cardiovascular disease Gallstones CHF (congestive heart failure) Cardiomyopathy Pacemaker Morbid obesity HTN (hypertension), benign Reflux gastritis Lumbar back pain Surgical History History of coronary artery bypass graft x 3 History of permanent cardiac pacemaker placement (~04/12/20) Family History Father Diabetes Mother Cardiovascular disease Social History Alcohol intake: never Patient Tobacco Use Status: Never used Tobacco Office Procedures Cardiac Device Check Cardiac Device Check Details: Date of service- 08/22/2024 ; Battery life >8 years; normal lead parameters; AP >20%; SHEET TESTER <0.1%; brief sinus tach vs SVT. Overall normal device function. [id number] Cardiac Device Interrogation, pacemaker Procedure code (CPT) selection complete Assessment & Plan Assessment & Plan (1) Pacemaker: Code(s): Z95.0 - Presence of cardiac pacemaker Category: Medical (2) Complete heart block: Code(s): I44.2 - Atrioventricular block, complete Category: Medical Plan x Coding Level of Care Code Procedure Only Diagnoses Pacemaker Z95.0 Complete heart block I44.2 CPT Codes Cardiac Device Check - Cardiac Device 12: [id number] Cardiac Device Interrogation, pacemaker ([id number])
== END ==
PROVIDERS: PCP Internal Medicine; Visit Provider Internal Medicine
DX: I44.2 Atrioventricular block, complete (principal); Z95.0 Presence of cardiac pacemaker
CPT/HCPCS: 93294

== ENCOUNTER 2024-11-14 21:04 | Emergency (ER) | payer MEDICARE, OTHER, SELFPAY ==
--- NOTE | 2024-11-14 | ECG_ITS ---
Test Reason : DIZZINESS Blood Pressure : */* mmHG Vent. Rate : 81 BPM Atrial Rate : 81 BPM P-R Int : 226 ms QRS Dur : 158 ms QT Int : 426 ms P-R-T Axes : 83 -9 132 degrees QTcB Int : 494 ms Sinus rhythm with 1st degree A-V block Left bundle branch block Abnormal ECG When compared with ECG of 11-Dec-2021 14:47, Sinus rhythm has replaced Electronic ventricular pacemaker Referred By: Generic ED Physician Electronically Signed By: Milad Lomax
--- NOTE | ~2024-11-14 | XR_ITS ---
CLINICAL HISTORY: weakness 1 view chest x-ray Comparison: CR - CHEST 1 VIEW - 05/16/18 20:23 EDT Findings: Heart size is top-normal. Atherosclerotic vascular disease of aortic arch. Previous sternotomy. Interval dual lead left-sided ICD. No consolidation, significant pleural effusion or pneumothorax. No acute fracture. IMPRESSION: 1. No acute findings. This document has been electronically signed by: Chel Amato MD on 11/15/2024 00:03:02
--- NOTE | ~2024-11-14 | CT_ITS ---
CLINICAL HISTORY: altered mental status CT head without contrast Comparison: CT - CT ANGIO HEAD NECK - 06/10/24 18:25 EDT Findings: No intra-axial mass, midline shift, hydrocephalus, or acute hemorrhage. There is atrophy. There are prominent bilateral nonspecific supratentorial white matter hypodensities in periventricular and subcortical white matter similar to previous examination and most suggestive of chronic small-vessel ischemic changes. Atherosclerotic vascular disease. There is no sinus or mastoid fluid. Right mastoid air cells poorly pneumatized. The orbits are unremarkable. There is no acute skull fracture. IMPRESSION: 1. No acute intracranial findings. 2. Stable nonacute findings as described. This document has been electronically signed by: Chel Amato MD on 11/15/2024 00:51:20
--- NOTE | ~2024-11-14 | CT_ITS ---
CLINICAL HISTORY: right sided abdominal pain CT abdomen and pelvis with contrast Comparison: CT/REG - CT ABDOMEN PELVIS WO CON - 06/28/20 13:34 EDT Findings: The lung bases are clear. Previous sternotomy. Cholelithiasis and sludge in the gallbladder. No biliary ductal dilatation. Liver is within normal limits. Splenic granulomas. Pancreas atrophic and fatty infiltrated. Adrenal glands are normal. 8 mm nonobstructing right renal upper pole stone in 5 mm nonobstructing left renal stone. No ureteral stones and no hydronephrosis or hydroureter. Nonspecific bilateral perinephric stranding. No bowel obstruction, pneumoperitoneum, or pneumatosis. Mild colonic diverticulosis Appendix not identified. No free fluid fat containing bilateral inguinal hernias left larger than right. Prostate is normal in size. Mild urinary bladder wall thickening. Atherosclerotic vascular disease with no aneurysm of the abdominal aorta. Multilevel degenerative changes in the spine. Posterior hardware fusion at L3-4 no acute fracture. IMPRESSION: 1. Cholelithiasis and sludge in the gallbladder. 2. Bilateral nonobstructing renal stones. No ureteral stones or hydronephrosis. 3. Nonspecific mild bilateral perinephric stranding and mild thickening of urinary bladder wall may represent infection. Correlate with urinalysis. 4. Additional nonacute findings as described. This document has been electronically signed by: Chel Amato MD on 11/15/2024 00:44:36
[2024-11-14 21:10] VITALS: BP 135/61; BP 98/82; PULSE 82; PULSE 88; RESP 25; TEMP 36.9; O2SAT 98; O2SAT 99; BMI 36.0
[2024-11-14 21:40] LABS: MANUAL DIFF FLAG NO
[2024-11-14 21:48] LABS: Basophils Absolute Auto 0.1 X10*3/uL (0.0-0.2); Basophils Percent Auto 1.2 % (0-2); Eosinophils Percent Auto 0.2 % (0-4); Hematocrit 42.9 % (42.0-52.0); Hemoglobin 14.5 g/dl (14.0-18.0); Imm Gran Abs Auto 0.02 X10*3/uL (0.00-0.03); Imm Gran Pct Auto 0.4 % (0.0-0.4); Lymphocytes Absolute Auto 0.7 X10*3/uL (1.2-4.9); Lymphocytes Percent Auto 11.5 % (20-40); Mean Corpuscular HGB Conc 33.8 g/dl (31.0-36.0); Mean Corpuscular Hemoglobin 29.5 pg (27.0-33.0); Mean Corpuscular Volume 87.2 fL (80.0-98.0); Mean Platelet Volume 10.6 fL (9.4-12.4); Monocytes Absolute Auto 0.8 X10*3/uL (0.1-1.2); Monocytes Percent Auto 14.5 % (2-11); Neutrophils Absolute Auto 4.1 x10*3/uL (2.0-8.3); Neutrophils Percent Auto 72.2 % (45-73); Platelet Count 141 X10*3/uL (160-400); Red Blood Count 4.92 X10*6/uL (4.60-5.80); Red Cell Distribution Width 14.2 % (11.0-16.0); White Blood Count 5.6 X10*3/uL (4.8-10.8)
[2024-11-14 21:57] LABS: Alanine Aminotransferase 32 U/L (0-40); Albumin Level 3.9 g/dL (3.5-5.0); Alkaline Phosphatase 83 U/L (39-117); Anion Gap 17 (12-20); Aspartate Amino Transferase 47 U/L (5-37); Bilirubin Total 0.8 mg/dL (0.0-1.0); Blood Urea Nitrogen 12 mg/dL (9-16); Calcium 9.5 mg/dL (8.4-10.2); Carbon Dioxide 21 mmol/L (22-29); Chloride 104 mmol/L (96-108); Creatinine Clr Calc Pharmacy 73.1; Estimated Glomerular Filt Rate > 60; Glucose Random 217 mg/dL (60-115); Lipase 15 U/L (8-78); Magnesium 1.8 mg/dL (1.6-2.6); Potassium 4.2 mmol/L (3.3-5.1); Sodium 138 mmol/L (135-145); Total Protein 8.4 g/dL (6.5-8.0)
[2024-11-14 22:04] LABS: Troponin-I High Sensitivity 49.4 ng/L (<3.5-35.0)
--- NOTE | 2024-11-14 23:00 | ED_ITS ---
HPI - General Adult General Chief complaint: General Medical Stated complaint: weakness, fall no injury hx 2 days ago Time Seen by Provider: 11/14/24 22:18 Source: patient, family ( and daughter), RN notes reviewed and old records reviewed Mode of arrival: EMS Limitations: other (Poor historian) History of Present Illness ED Provider: Farhat HPI narrative: 74-year-old male with past medical history significant for complete heart block status post diabetes, hyperlipidemia, pulmonary hypertension, coronary artery disease status post CABG x3, congestive heart failure tension presents for evaluation of failure to thrive. Per the patient's and daughter who both live with the patient, he has had decreased activity for the last few weeks. He stays in bed all day every day. Apparently he had 2 falls late last night around midnight and around 4:30 a.m. He fell out of his recliner chair where he sleeps The patient was unable to get up in the ambulance came twice to help him get back into his chair The patient refused to go to the hospital during the falls last night He reports a mild headache The patient's states he was not eating or drinking anything in 2 days. The patient denies any abdominal pain, he reports he had some nausea on his way to the hospital but reports that he just does not have an appetite He has not had any fevers, denies any chest pain, abdominal pain Related Data Home Medications ?Medication ?Instructions ?Recorded ?Confirmed aspirin 81 mg tablet,delayed 81 mg PO DAILY 06/21/20 11/15/24 release (Adult Low Dose Aspirin) lisinopril 20 mg tablet 20 mg PO DAILY 04/08/22 11/15/24 insulin glargine 100 unit/mL (3 40 unit subcut DAILY 01/07/23 11/15/24 mL) subcutaneous pen (Lantus Solostar U-100 Insulin) atorvastatin 40 mg tablet 40 mg PO BEDTIME 11/15/24 11/15/24 insulin glargine 100 unit/mL (3 25 unit subcut BEDTIME 11/15/24 11/15/24 mL) subcutaneous pen (Lantus Solostar U-100 Insulin) Previous Rx's ?Medication ?Instructions ?Recorded diabetic foot wear #1 ea 09/15/20 diabetic supplies, miscellan. #1 ea 09/15/20 furosemide 20 mg tablet 20 mg PO DAILY 30 days #30 tabs 04/15/21 amlodipine 5 mg tablet 5 mg PO DAILY #120 tabs 04/15/21 sertraline 100 mg tablet 100 mg PO DAILY 90 days #90 tabs 08/11/22 metoprolol succinate 50 mg 150 mg (3 x 50 mg) PO DAILY #270 08/30/22 tablet,extended release 24 hr tabs Allergies Allergy/AdvReac Type Severity Reaction Status Date / Time gabapentin Allergy Unknown Unknown Verified 11/14/24 21:12 ibuprofen AdvReac Mild GI upset Verified 11/14/24 21:12 omeprazole AdvReac Mild GI upset Verified 11/14/24 21:12 erythromycin base AdvReac Unknown GI PROBLEMS Verified 11/14/24 21:12 [ERYTHROMYCIN BASE] hydrocodone [From Vicodin] AdvReac Unknown GI upset, Verified 11/14/24 21:12 dizziness, vomiting Review of Systems 2 Constitutional: Constitutional: Denies body ache(s), Denies chills, Reports fatigue, Denies fever(s), Reports frequent falls and Reports headache(s) Eyes: Eyes: Denies blurry vision ENT: Denies dysphagia, Denies vertigo, Denies dizziness and Reports headache(s) Cardiovascular: Cardiovascular: Denies chest pain and Denies dyspnea Respiratory: Respiratory: Denies cough and Denies dyspnea Gastrointestinal: Gastrointestinal: Denies abdominal pain, Denies GI cramping, Denies dysphagia, Denies diarrhea, Denies loose stools, Reports nausea and Denies vomiting Musculoskeletal: Musculoskeletal: Denies back pain Integumentary/Breasts: Skin/Breast: Denies rash Neurologic: Denies Abnormal speech present, Denies vertigo, Denies dizziness, Reports frequent falls and Reports headache(s) Psychiatric: Psychiatric: Denies anxiety Endocrine: Endocrine: Reports fatigue PMFSH Past Medical History Medical History Diabetic neuropathy Hyperlipidemia Normal colonoscopy DM type 2 (diabetes mellitus, type 2) Type 2 diabetes mellitus with unspecified complications Pulmonary hypertension Left bundle branch block Heart failure with preserved ejection fraction Non-rheumatic aortic stenosis Atherosclerotic cardiovascular disease Gallstones CHF (congestive heart failure) Cardiomyopathy Pacemaker Morbid obesity HTN (hypertension), benign Reflux gastritis Lumbar back pain Surgical History History of coronary artery bypass graft x 3 History of permanent cardiac pacemaker placement (~04/12/20) Family History Family History Father Diabetes Mother Cardiovascular disease Social History Social History Alcohol intake: never Patient Tobacco Use Status: Never used Tobacco Physical Exam ED Vital Signs: Vital Signs - 24 hr 11/15/24 14:00 11/15/24 21:33 11/16/24 06:25 Temperature 99.7 F 97.6 F 97.9 F Pulse Rate 100 74 81 Respiratory Rate 18 18 16 Blood Pressure 127/69 136/53 L 148/47 H Pulse Oximetry 95 98 97 Oxygen Delivery Method Room Air Room Air Room Air 11/16/24 08:00 11/16/24 09:23 11/16/24 09:24 Temperature 98.7 F Pulse Rate 87 Respiratory Rate 16 Blood Pressure 157/57 H 157/57 H 157/57 H Pulse Oximetry 98 Oxygen Delivery Method Room Air 11/16/24 09:24 11/16/24 09:25 11/16/24 11:22 Temperature 100.2 F Pulse Rate 87 95 Respiratory Rate 20 Blood Pressure 157/57 H 157/57 H 162/74 H Pulse Oximetry 95 Oxygen Delivery Method Room Air 11/16/24 12:46 Temperature 101 F H Pulse Rate 75 Respiratory Rate 20 Blood Pressure 168/80 H Pulse Oximetry 98 Oxygen Delivery Method Room Air BMI result Body Mass Index 36.0 Const General: healthy appearing, comfortable, no acute distress, alert and awake Nutritional Appearance: well nourished Orientation/consciousness: oriented to person, oriented to place and No oriented to time [facility] Head: Yes normocephalic and Yes atraumatic Eyes Eyelids: Yes eyelids normal Conjunctivae: conjunctivae normal Sclerae: sclerae normal Corneas: corneas normal Pupils: Equal, round and reactive pupils present EOM: EOMs intact bilaterally Neck Neck: Yes full ROM Resp Effort & Inspection: normal respiratory effort, able to speak in complete sentences, no audible wheezes and not labored Auscultation: clear to auscultation bilaterally Cardio Rate: regular rate Rhythm: regular rhythm GI Inspection: No distended Palpation (GI): Soft to palpation, not firm, nontender, no guarding and not rigid Skin General skin exam: elasticity normal Neuro General: oriented to person, oriented to place and No oriented to time Cranial nerves: Yes Equal, round and reactive pupils present and Yes Bilaterally intact EOM present Speech: No Abnormal speech present Extrem Other: Moving all extremities well without any obvious deformities Course Reevaluation(s) Reevaluation #1: Patient's workup was significant for COVID-19. The patient is not hypoxic he is not septic, he is not in any respiratory distress. Still awaiting urinalysis. CT scans did not show any acute findings to explain his current symptoms. The CT scan of the pelvis did show possible cystitis, again will correlate with urinalysis once provided Time: 01:03 Reevaluation #2: Urine was provided, small blood, no profound evidence of urinary tract infection. Awaiting urine culture. Physician observation continued. No overnight events per nursing staff. Patient is awaiting physical therapy. Urine does not appear to be infectious. Patient did test positive for COVID. We will continue to monitor pending case management disposition and PT eval. Additional Reevaluation(s): 11/16/24--855-- physician observation continued. Labs and imaging reviewed. CT AP showing cholelithiasis with sludge in the gallbladder, patient without RUQ abdominal tenderness on exam, can be followed outpatient. Physical therapy was attempted to evaluate patient yesterday however he was unable to participate due to weakness. case management following, we will continue to monitor for discharge needs Physician observation completed at 1530 . Physical therapy recommended short- term rehab however patient does not qualify for acute rehab and is unable to sprivnately payf for. patient will discharge home with and daughter with VNA. Patient does not meet medical necessity for hospitalization. Final disposition discussed with patient and family who verbalized understanding and are in agreement. Medications Administered Generic Name Dose Route Start Last Admin Trade Name Freq PRN Reason Stop Dose Admin Amlodipine Besylate 5 mg 11/16/24 09:00 11/16/24 09:24 Amlodipine Besylate 5 Mg Tablet PO 5 mg DAILY ALEXI Administration Protocol Aspirin 81 mg 11/16/24 09:00 11/16/24 09:23 Aspirin Enteric Coated 81 Mg Tablet. PO 81 mg DAILY ALEXI Administration Atorvastatin Calcium 40 mg 11/15/24 21:00 11/15/24 21:19 Atorvastatin Calcium 40 Mg Tablet PO 40 mg BEDTIME ALEXI Administration Furosemide 20 mg 11/16/24 09:00 11/16/24 09:24 Furosemide 20 Mg Tablet PO 20 mg DAILY ALEXI Administration Protocol Insulin Glargine 25 unit 11/15/24 21:00 11/15/24 21:19 Insulin Glargine,Hum.Rec.Anlog 100 Unit/Ml 10 Ml Vial SUBCUT 25 unit BEDTIME ALEXI Administration Insulin Glargine 40 unit 11/16/24 09:00 11/16/24 09:23 Insulin Glargine,Hum.Rec.Anlog 100 Unit/Ml 10 Ml Vial SUBCUT 40 unit DAILY ALEXI Administration Lisinopril 20 mg 11/16/24 09:00 11/16/24 09:23 Lisinopril 20 Mg Tablet PO 20 mg DAILY ALEXI Administration Protocol Metoprolol Succinate 150 mg 11/16/24 09:00 11/16/24 09:25 Metoprolol Succinate Er 50 Mg Tab.Er.24h PO 150 mg DAILY ALEXI Administration Protocol Sertraline HCl 100 mg 11/16/24 09:00 11/16/24 09:24 Sertraline Hcl 100 Mg Tablet PO 100 mg DAILY ALEXI Administration Discontinued Medications Generic Name Dose Route Start Last Admin Trade Name Freq PRN Reason Stop Dose Admin Acetaminophen 650 mg 11/16/24 11:25 11/16/24 11:37 Acetaminophen 325 Mg Tablet PO 11/16/24 11:26 650 mg ONCE STA Administration Sodium Chloride 1,000 mls @ 999 mls/hr 11/14/24 23:00 11/15/24 00:45 Ns IV 11/15/24 00:00 Infused .Q1H1M ALEXI Infusion Iohexol 85 ml 11/14/24 23:24 11/14/24 23:25 Iohexol 350 Mg/Ml 100 Ml Infus..Btl IV 11/14/24 23:25 85 ml ONCE ONE Administration Medical Decision Making Medical Decision Making MDM Narrative: 74-year-old male past medical history as above presents for evaluation of weakness and 2 separate falls last night. The patient injured himself from the falls, he has no focal neurologic deficits. He is alert and oriented to person and place only, some mild headache and nausea but otherwise denies any other complaints or concerns. We will get a CT scan of his head given the recent falls and weakness. I will get a chest x-ray as he was tachypneic to 25 was denies shortness of breath in his oxygen saturation is appropriate. In his labs are significant for an elevated troponin 249. The patient denies any chest pain and does have extensive history. We will get a repeat troponin was elevated but the patient denies chest pain. The patient's EKG shows a sinus rhythm with a first-degree AV block with a WA interval 226. He has a prolonged QRS complex. He has no leukocytosis or anemia no left shift, chemistries significant for a carbon dioxide that is just below normal at 21 and likely related to his tachypnea. Random glucose of 217. Use a slight elevation of his CK and troponin. Again the patient denies chest pain, this is likely not ACS but we will repeat the troponin Differential Diagnosis Differential Diagnoses: The differential diagnosis associated with the presentation includes Failure to thrive Weakness ACS less likely Cystitis Pneumonia Dementia Intracranial hemorrhage Admission/Observation Consideration of admission/observation: Escalation of care including admission/observation considered Lab Data MDM Lab Attestation statement: I reviewed the patient's lab results. As above 11/14/24 21:36 11/14/24 21:36 Labs: Lab Results 11/14/24 11/14/24 11/14/24 Range/Units 21:36 23:00 23:44 WBC 5.6 (4.8-10.8) X10*3/uL RBC 4.92 (4.60-5.80) X10*6/uL Hgb 14.5 (14.0-18.0) g/dl Hct 42.9 (42.0-52.0) % MCV 87.2 (80.0-98.0) fL MCH 29.5 (27.0-33.0) pg MCHC 33.8 (31.0-36.0) g/dl RDW 14.2 (11.0-16.0) % Plt Count 141 L D (160-400) X10*3/uL MPV 10.6 (9.4-12.4) fL Immature Gran % (Auto) 0.4 (0.0-0.4) % Neut % (Auto) 72.2 (45-73) % Lymph % (Auto) 11.5 L (20-40) % [place] % (Auto) 14.5 H (2-11) % Eos % (Auto) 0.2 (0-4) % Baso % (Auto) 1.2 (0-2) % Lymph # (Auto) 0.7 L (1.2-4.9) X10*3/uL [place] # (Auto) 0.8 (0.1-1.2) X10*3/uL Eos # (Auto) 0.0 (0.0-0.4) X10*3/uL Baso # (Auto) 0.1 (0.0-0.2) X10*3/uL Abs Immat Gran (auto) 0.02 (0.00-0.03) X10*3/uL Absolute Neuts (auto) 4.1 (2.0-8.3) x10*3/uL Absolute Nucleated RBC 0.000 (0.0-0.012) X10*3/uL Nucleated RBC % (auto) 0.0 (0.0-0.2) /100WBC Sodium 138 (135-145) mmol/L Potassium 4.2 (3.3-5.1) mmol/L Chloride 104 (96-108) mmol/L Carbon Dioxide 21 L (22-29) mmol/L Anion Gap 17 (12-20) BUN 12 (9-16) mg/dL Creatinine 1.07 (0.5-1.4) mg/dL Estim Creat Clear Calc 73.1 Estimated GFR > 60 POC Glucose (60-115) mg/dL Random Glucose 217 H (60-115) mg/dL Calcium 9.5 (8.4-10.2) mg/dL Magnesium 1.8 (1.6-2.6) mg/dL Total Bilirubin 0.8 (0.0-1.0) mg/dL AST 47 H (5-37) U/L ALT 32 (0-40) U/L Alkaline Phosphatase 83 (39-117) U/L Total Creatine Kinase 285 H (38-174) U/L Troponin I High Sens 49.4 H 55.7 H (<3.5-35.0) ng/L Total Protein 8.4 H (6.5-8.0) g/dL Albumin 3.9 (3.5-5.0) g/dL Lipase 15 (8-78) U/L Urine Color Urine Appearance Urine pH (5.0-9.0) Ur Specific [place] (1.005-1.025) Urine Protein (Neg-Trace) mg/dL Urine Glucose (UA) (Negative) mg/dL Urine Ketones (Negative) mg/dL Urine Blood (Negative) Urine Nitrite (Negative) Ur Leukocyte Esterase (Negative) Urine RBC (0-2) /HPF Urine WBC (0-5) /HPF Ur Squamous Epith Cells (0-2) /HPF Urine Bacteria (None Seen) Hyaline Casts (0-2) /LPF Influenza Type A (PCR) NEGATIVE (Negative) Influenza Type B (PCR) NEGATIVE (Negative) RSV RNA Qual (PCR) NEGATIVE (Negative) SARS-CoV-2 RNA (RT-PCR) POSITIVE A (Negative) 11/15/24 11/15/24 11/15/24 Range/Units 01:48 07:08 21:00 WBC (4.8-10.8) X10*3/uL RBC (4.60-5.80) X10*6/uL Hgb (14.0-18.0) g/dl Hct (42.0-52.0) % MCV (80.0-98.0) fL MCH (27.0-33.0) pg MCHC (31.0-36.0) g/dl RDW (11.0-16.0) % Plt Count (160-400) X10*3/uL MPV (9.4-12.4) fL Immature Gran % (Auto) (0.0-0.4) % Neut % (Auto) (45-73) % Lymph % (Auto) (20-40) % [place] % (Auto) (2-11) % Eos % (Auto) (0-4) % Baso % (Auto) (0-2) % Lymph # (Auto) (1.2-4.9) X10*3/uL [place] # (Auto) (0.1-1.2) X10*3/uL Eos # (Auto) (0.0-0.4) X10*3/uL Baso # (Auto) (0.0-0.2) X10*3/uL Abs Immat Gran (auto) (0.00-0.03) X10*3/uL Absolute Neuts (auto) (2.0-8.3) x10*3/uL Absolute Nucleated RBC (0.0-0.012) X10*3/uL Nucleated RBC % (auto) (0.0-0.2) /100WBC Sodium (135-145) mmol/L Potassium (3.3-5.1) mmol/L Chloride (96-108) mmol/L Carbon Dioxide (22-29) mmol/L Anion Gap (12-20) BUN (9-16) mg/dL Creatinine (0.5-1.4) mg/dL Estim Creat Clear Calc Estimated GFR POC Glucose 176 H 288 H (60-115) mg/dL Random Glucose (60-115) mg/dL Calcium (8.4-10.2) mg/dL Magnesium (1.6-2.6) mg/dL Total Bilirubin (0.0-1.0) mg/dL AST (5-37) U/L ALT (0-40) U/L Alkaline Phosphatase (39-117) U/L Total Creatine Kinase (38-174) U/L Troponin I High Sens (<3.5-35.0) ng/L Total Protein (6.5-8.0) g/dL Albumin (3.5-5.0) g/dL Lipase (8-78) U/L Urine Color Yellow Urine Appearance Clear Urine pH 5.0 (5.0-9.0) Ur Specific [place] >= 1.030 H (1.005-1.025) Urine Protein 100 (2+) H (Neg-Trace) mg/dL Urine Glucose (UA) Negative (Negative) mg/dL Urine Ketones 40 (Negative) mg/dL Urine Blood Small (1+) H (Negative) Urine Nitrite Negative (Negative) Ur Leukocyte Esterase Negative (Negative) Urine RBC 0-2 (0-2) /HPF Urine WBC 0-5 (0-5) /HPF Ur Squamous Epith Cells 0-2 (0-2) /HPF Urine Bacteria None Seen (None Seen) Hyaline Casts 0-2 (0-2) /LPF Influenza Type A (PCR) (Negative) Influenza Type B (PCR) (Negative) RSV RNA Qual (PCR) (Negative) SARS-CoV-2 RNA (RT-PCR) (Negative) 03/18/25 03/18/25 Range/Units 08:30 11:53 WBC (4.8-10.8) X10*3/uL RBC (4.60-5.80) X10*6/uL Hgb (14.0-18.0) g/dl Hct (42.0-52.0) % MCV (80.0-98.0) fL MCH (27.0-33.0) pg MCHC (31.0-36.0) g/dl RDW (11.0-16.0) % Plt Count (160-400) X10*3/uL MPV (9.4-12.4) fL Immature Gran % (Auto) (0.0-0.4) % Neut % (Auto) (45-73) % Lymph % (Auto) (20-40) % [place] % (Auto) (2-11) % Eos % (Auto) (0-4) % Baso % (Auto) (0-2) % Lymph # (Auto) (1.2-4.9) X10*3/uL [place] # (Auto) (0.1-1.2) X10*3/uL Eos # (Auto) (0.0-0.4) X10*3/uL Baso # (Auto) (0.0-0.2) X10*3/uL Abs Immat Gran (auto) (0.00-0.03) X10*3/uL Absolute Neuts (auto) (2.0-8.3) x10*3/uL Absolute Nucleated RBC (0.0-0.012) X10*3/uL Nucleated RBC % (auto) (0.0-0.2) /100WBC Sodium (135-145) mmol/L Potassium (3.3-5.1) mmol/L Chloride (96-108) mmol/L Carbon Dioxide (22-29) mmol/L Anion Gap (12-20) BUN (9-16) mg/dL Creatinine (0.5-1.4) mg/dL Estim Creat Clear Calc Estimated GFR POC Glucose 146 H 215 H (60-115) mg/dL Random Glucose (60-115) mg/dL Calcium (8.4-10.2) mg/dL Magnesium (1.6-2.6) mg/dL Total Bilirubin (0.0-1.0) mg/dL AST (5-37) U/L ALT (0-40) U/L Alkaline Phosphatase (39-117) U/L Total Creatine Kinase (38-174) U/L Troponin I High Sens (<3.5-35.0) ng/L Total Protein (6.5-8.0) g/dL Albumin (3.5-5.0) g/dL Lipase (8-78) U/L Urine Color Urine Appearance Urine pH (5.0-9.0) Ur Specific [place] (1.005-1.025) Urine Protein (Neg-Trace) mg/dL Urine Glucose (UA) (Negative) mg/dL Urine Ketones (Negative) mg/dL Urine Blood (Negative) Urine Nitrite (Negative) Ur Leukocyte Esterase (Negative) Urine RBC (0-2) /HPF Urine WBC (0-5) /HPF Ur Squamous Epith Cells (0-2) /HPF Urine Bacteria (None Seen) Hyaline Casts (0-2) /LPF Influenza Type A (PCR) (Negative) Influenza Type B (PCR) (Negative) RSV RNA Qual (PCR) (Negative) SARS-CoV-2 RNA (RT-PCR) (Negative) Independent Interpretation I performed an independent interpretation of an: EKG Radiology Impression Discussion of test interpretation with radiology: I have reviewed the radiologist's reading. Radiologist Impression: Findings: No intra-axial mass, midline shift, hydrocephalus, or acute hemorrhage. There is atrophy. There are prominent bilateral nonspecific supratentorial white matter hypodensities in periventricular and subcortical white matter similar to previous examination and most suggestive of chronic small-vessel ischemic changes. Atherosclerotic vascular disease. There is no sinus or mastoid fluid. Right mastoid air cells poorly pneumatized. The orbits are unremarkable. There is no acute skull fracture. IMPRESSION: 1. No acute intracranial findings. 2. Stable nonacute findings as described. This document has been electronically signed by: Chel mAato MD on 11/15/2024 00:51:20 IMPRESSION: 1. Cholelithiasis and sludge in the gallbladder. 2. Bilateral nonobstructing renal stones. No ureteral stones or hydronephrosis. 3. Nonspecific mild bilateral perinephric stranding and mild thickening of urinary bladder wall may represent infection. Correlate with urinalysis. 4. Additional nonacute findings as described. This document has been electronically signed by: Chel Amato MD on 11/15/2024 00:44:36 Discharge Plan Discharge Clinical Impression: COVID-19 Patient Disposition: Still a Patient Prescriptions: No Action furosemide 20 mg tablet 20 mg PO DAILY 30 Days Qty: 30 2RF amlodipine 5 mg tablet 5 mg PO DAILY Qty: 120 0RF sertraline 100 mg tablet 100 mg PO DAILY 90 Days Qty: 90 1RF metoprolol succinate 50 mg tablet extended release 24 hr 150 mg PO DAILY Qty: 270 3RF insulin glargine [Lantus Solostar U-100 Insulin] 100 unit/mL (3 mL) insulin pen 25 unit SUBCUT BEDTIME atorvastatin 40 mg tablet 40 mg PO BEDTIME (DME) diabetic foot wear See Rx Instructions .Route .MEDSUPPLY Qty: 1 0RF Rx Instructions: As directed (DME) diabetic supplies, miscellan. Misc See Rx Instructions .ROUTE .MEDSUPPLY Qty: 1 0RF Rx Instructions: DM shoes aspirin [Adult Low Dose Aspirin] 81 mg tablet,delayed release (DR/EC) 81 mg PO DAILY lisinopril 20 mg tablet 20 mg PO DAILY insulin glargine [Lantus Solostar U-100 Insulin] 100 unit/mL (3 mL) insulin pen 40 unit subcut DAILY Referrals: Gladys SPENCER [Outside] (Agency will call to arrange a visit. ) Print Language: Greenlandic
[2024-11-14] MEDS: iohexoL 350 MG/ML 100 ML INFUS..BTL 85 ML IV (23:25)
[2024-11-14] MEDS: 0.9 % Sodium Chloride 1,000 ML 999 ML IV (23:42)
[2024-11-14 23:43] LABS: Influenza A PCR NEGATIVE (Negative); Influenza B PCR NEGATIVE (Negative); Resp Syncy Virus RNA Qual PCR NEGATIVE (Negative); SARS COV2 PCR INHOUSE POSITIVE (Negative)
--- NOTE | 2024-11-15 00:06 | MHC.EDTECH ---
This tech took over care of pt at 0000, rounded and introduced self to pt,vitals taken,pt is resting quietly,appears comfortable,call chung in reach
[2024-11-15 00:08] VITALS: BP 139/51; PULSE 82; RESP 16; TEMP 36.8; O2SAT 98
[2024-11-15 00:28] LABS: Troponin-I High Sensitivity 55.7 ng/L (<3.5-35.0)
--- NOTE | 2024-11-15 01:11 | PC.NURSE ---
pt still unable to produce urine sample at this time. states he has no urge to void. bladder scanned for 324 cc urine in bladder. pt given urinal and attempting to pee now
--- NOTE | 2024-11-15 01:26 | PC.NURSE ---
pt did not come with med list from home, patient unable to verify home meds at this time.
--- NOTE | 2024-11-15 01:52 | MHC.EDTECH ---
Patient placed in hospital bed at this time for comfort,pt ambulated with a 1/assist slow/unsteady gait, RN at bedside, pt urinated,urine sample obtained and sent to lab, call sheldon in reach
[2024-11-15 01:54] LABS: Appearance Urine Clear; Color Urine Yellow; Glucose Urine UA Negative (Negative); Leukocyte Esterase Urine Negative (Negative); Nitrite Urine Negative (Negative); Specific Gravity - Urine >= 1.030 (1.005-1.025); UMIC TRIGGER UACC YES; Urine Blood Small (1+) (Negative); Urine Ketones 40 mg/dL (Negative); Urine Protein 100 (2+) mg/dL (Neg-Trace)
--- NOTE | 2024-11-15 02:00 | PC.NURSE ---
patient was able to void in urinal. sample collected and sent to lab. pt moved into hospital bed. call chung within reach. denies any acute complaints or distress
[2024-11-15 02:02] LABS: Bacteria Urine None Seen (None Seen); Hyaline Casts Urine 0-2 /LPF (0-2); RBC Urine 0-2 /HPF (0-2); Squamous Epithelial Cell Urine 0-2 /HPF (0-2); WBC Urine 0-5 /HPF (0-5)
[2024-11-15 06:00] VITALS: BP 129/55; PULSE 76; RESP 18; TEMP 36.6; O2SAT 98
[2024-11-15 07:11] LABS: Glucose, Whole Blood 176 mg/dL (60-115)
--- NOTE | 2024-11-15 10:38 | PC.NURSE ---
Pt alert and cooperative. Patient ate breakfast, denies any pain. All needs met at this time.
[2024-11-15 14:00] VITALS: BP 127/69; PULSE 100; RESP 18; TEMP 37.6; O2SAT 95
--- NOTE | 2024-11-15 14:01 | PC.NURSE ---
This nurse arrived from break at 1330 and was informed by the covering nurse and aid that patient had vomited. This nurse assessed the patient, patient states feeling better and denies nausea at this time ( provider notified). Call chung within patients reach and safety precautions in place.
--- NOTE | 2024-11-15 14:44 | MHC.CM.ED ---
Addendum entered by Jenna Conte 11/15/24 14:52: Per Taina TROY, will stay overnight with plan of d/c home tomorrow. Original Note: Received case management consult overnight. Patient came to the ER due to a fall. Found to be +Covid. Physical therapy eval pending. Spoke with patient's Elsa and daughter Francisca via telephone at [phone]. Patient lives with daughter and , does not use any mobility aides and tends to shuffle this gait when ambulating. Patient had no services prior to coming to the ER. Elsa and Francisca took Covid tests at home and they are also positive for Covid. Patient's brother was transferred to a SNF about 2 weeks ago. There was a Covid outbreak at the facility at that time. Elsa and Francisca believe that is how they came in contact with Covid. PCP verified. Copy of HCP verified to be on file. Both are aware PT eval is pending. Both Elsa and Francisca feel patient has been sleeping more over the past two weeks. Both feel he can safely return home with referral to [facility]. Referral made via [facility]. Patient will need BLS transportation. Received report of patient vomiting. Taina TROY aware. Continue to monitor for d/c needs.
--- NOTE | 2024-11-15 15:18 | PHA.MEDREC ---
Addendum entered by Jorge Toribio RPh 11/15/24 15:56: Reviewed by [facility], located within [facility] Original Note: Pharmacy Consult ? Medication Reconciliation Pharmacy has completed the medication reconciliation. Spoke with patient the patient and he seemed a little spacy when talking with him but he could confirm his medications. Patient confirmed he is not taking it the Dulaglutide/Trulicity once a week anymore and when I asked more on that he said he's never taken an injection once a week . He was able to confirm his Lantus and confirmed he injects 40 units in the morning and 25 units at bedtime of that. He stated he has not taken any medications in 2 days.
[2024-11-15 21:06] LABS: Glucose, Whole Blood 288 mg/dL (60-115)
[2024-11-15] MEDS: Atorvastatin Calcium 40 MG TABLET PO (21:19)
[2024-11-15] MEDS: Insulin Glargine,Hum.rec.anlog 100 UNIT/ML 10 ML VIAL 25 UNIT SUBCUT (21:19)
[2024-11-15 21:33] VITALS: BP 136/53; PULSE 74; RESP 18; TEMP 36.4; O2SAT 98
[2024-11-16] VITALS (9 sets, daily range): BP systolic 108–168; BP diastolic 43–80; PULSE 74–95; RESP 16–21; TEMP 36.6–38.3; O2SAT 95–98
--- NOTE | 2024-11-16 07:28 | PC.NURSE ---
Addendum entered by Tova Snell 11/16/24 07:30: Initial note entered on wrong patient. Update: This RN has assumed care. Pt is sleeping at this time. skin PWD. chest rise noted. Original Note: This RN has assumed care. Pt was assisted to bath after attempting to get to commode w/o ringing. Pt is confused. Oriented to person only. Unable to follow commands easily. Unsteady on feet and needs 2 assist.
--- NOTE | 2024-11-16 08:25 | MHC.EDTECH ---
this tech assumed care of pt at 0700, pt assisted via 2 assist to shower, ADLs provided, PT at bedside assisting pt back to bed, resting at this time, eating breakfast then will initiate oral care
[2024-11-16 08:34] LABS: Glucose, Whole Blood 146 mg/dL (60-115)
[2024-11-16] MEDS: Aspirin Enteric Coated 81 MG TABLET.DR PO (09:23)
[2024-11-16] MEDS: lisinopriL 20 MG TABLET PO (09:23)
[2024-11-16] MEDS: Insulin Glargine,Hum.rec.anlog 100 UNIT/ML 10 ML VIAL 40 UNIT SUBCUT (09:23)
[2024-11-16] MEDS: Furosemide 20 MG TABLET PO (09:24)
[2024-11-16] MEDS: Sertraline HCL 100 MG TABLET PO (09:24)
[2024-11-16] MEDS: amLODIPine Besylate 5 MG TABLET PO (09:24)
[2024-11-16] MEDS: Metoprolol Succinate ER 50 MG TAB.ER.24H 150 MG PO (09:25)
--- NOTE | 2024-11-16 09:41 | PC.NURSE ---
Late entry. Pt was assisted to BR for shower. Was able to ambulate with stand by assist and walker. Became weak and needed increased support to transition from shower to toilet and then wheelchair to return to room. Continues to have soft BM's throughout mornign ADLs. BMs have slowed down now and patient resting comfortably in bed. no SOB or cough noted during AM care. denies abd pain. Has been seen by PT.
--- NOTE | 2024-11-16 10:31 | PC.NURSE ---
Update via telephone to , Pat.
[2024-11-16] MEDS: Acetaminophen 325 MG TABLET 650 MG PO (11:37)
[2024-11-16 11:56] LABS: Glucose, Whole Blood 215 mg/dL (60-115)
--- NOTE | 2024-11-16 12:24 | MHC.CM.ED ---
Addendum entered by Jenna Conte 11/16/24 13:35: [facility] is not able to offer a bed. Spoke with patient's , Elsa via telephone at [phone]. Elsa is not able to privately pay for STR placement. Elsa and daughter Francisca are aware that patient is unable to get out of bed by himself and will need assistance. [facility] will see patient. Tony LITTLE booked for 330pm. Med [facility] with chart. Patient, Ainsley LOJA and Venecia TROY aware. Original Note: Patient remains in ER overflow. PT eval completed. Rehab is recommended. Referral made to all 3 acute rehab facilities. [facility] not able to offer a bed. Waiting to hear from [facility]. Continue to monitor for d/c needs.
--- NOTE | 2024-11-16 12:49 | MHC.EDTECH ---
pt given lunch tray, states he is not hungry at the moment and will wait to eat. RN aware
== END 2024-11-16 15:40 | disposition home or self-care (01) ==
PROVIDERS: Physician Assistant; Emergency Provider Emergency Medicine; PCP Internal Medicine
DX: U07.1 COVID-19 (principal); R53.1 Weakness; R51.9 Headache, unspecified; I44.0 Atrioventricular block, first degree; R06.82 Tachypnea, not elsewhere classified; R62.7 Adult failure to thrive; Z68.36 Body mass index [BMI] 36.0-36.9, adult; E11.9 Type 2 diabetes mellitus without complications; E78.5 Hyperlipidemia, unspecified; I10 Essential (primary) hypertension; R29.6 Repeated falls; Z91.81 History of falling; Z95.1 Presence of aortocoronary bypass graft; Z79.82 Long term (current) use of aspirin; Z79.4 Long term (current) use of insulin; Z79.02 Long term (current) use of antithrombotics/antiplatelets; Z79.899 Other long term (current) drug therapy
CPT/HCPCS: 0241U; 36415; 70450; 71045; 74177; 80053; 81001; 82550; 82947; 83690; 83735; 84484; 85025; 93005; 97162; 99285; Q9967

== ENCOUNTER → 2024-11-14 21:12 | Outpatient (BNV) | payer MEDICARE, OTHER, SELFPAY | PROVIDERS: Emergency Provider Emergency Medicine; PCP Internal Medicine; Visit Provider Internal Medicine Cardiovascular Disease | DX: I44.0 Atrioventricular block, first degree (principal); I44.7 Left bundle-branch block, unspecified | CPT/HCPCS: 93010 ==

== ENCOUNTER → 2024-11-14 22:50 | Outpatient (BNV) | payer MEDICARE, OTHER, SELFPAY | PROVIDERS: Emergency Provider Emergency Medicine; PCP Internal Medicine; Visit Provider Specialist | DX: K80.20 Calculus of gallbladder without cholecystitis without obstruction (principal); N20.0 Calculus of kidney; R41.82 Altered mental status, unspecified; R05.9 Cough, unspecified; R53.1 Weakness | CPT/HCPCS: 70450; 71045; 74177 ==

== ENCOUNTER 2024-11-17 09:55 | Inpatient (IN) | payer MEDICARE, OTHER, SELFPAY ==
[2024-11-17] VITALS (16 sets, daily range): BP systolic 91–168; BP diastolic 37–82; PULSE 60–86; RESP 12–24; TEMP 36.3–38.2; O2SAT 93–100; BMI 34.8; BMI 36.9
--- NOTE | ~2024-11-17 | XR_ITS ---
EXAMINATION: XR LUMBAR SPINE 2-3 VIEWS HISTORY: pain, fall COMPARISON: Comparison is made with the prior examination dated 06/13/2023. FINDINGS: AP, lateral, and coned down views of the lumbar spine are submitted. Osseous mineralization is normal. The examination is somewhat limited by difficulty in patient positioning. The patient is again noted to be status post posterior fusion of L3 and L4 with pedicle screws, spinal stabilization rods, and an intervertebral spacer. The hardware is intact. The vertebral bodies maintain normal height and alignment. There is moderate degenerative disc disease with disc space narrowing, osteophyte formation, and vacuum phenomenon. There is calcification of the abdominal aorta. XR/XR lumbar spine 2-3V IMPRESSION: Status post posterior fusion of L3 and L4 without change. Moderate degenerative disc disease. Electronically signed by: David Rollins MD 11/17/2024 11:15 AM EDT
--- NOTE | ~2024-11-17 | XR_ITS ---
EXAMINATION: XR CHEST 1 VIEW HISTORY: weakness, cough COMPARISON: Comparison is made with the prior examination dated 11/14/2024. FINDINGS: A single AP portable view of the chest performed at 10:22 AM is submitted. A left subclavian dual-chamber pacemaker is unchanged in position. There are low lung volumes. The lungs are clear. There is no pleural effusion, pneumothorax, or pulmonary vascular congestion. The heart is normal in size. The patient is status post median sternotomy and CABG. There is degenerative disc disease of the spine. There are calcifications in the right neck which are likely related to the internal carotid artery. XR/XR chest 1V IMPRESSION: Low lung volumes. No acute cardiopulmonary abnormality. Electronically signed by: David Rollins MD 11/17/2024 10:29 AM EDT
--- NOTE | 2024-11-17 10:12 | ED.WEAKNESS ---
HPI - Weakness General Chief complaint: Fall Stated complaint: x2 falls this morning, increasing weakness Source: patient, EMS and old records reviewed Mode of arrival: EMS Limitations: no limitations History of Present Illness ED Provider: LIZZIE HPI Narrative: 74 yo male with hx of CHF preserved EF, NSVT/complete heart block has PPM in place, HLD, DM, neuropathy, CAD, gastritis, not on blood thinners here with c/o lane COVID from his family last week, he was seen here 3/ dx with COVID and lethargy did not qualify for [facility] [place] home. He notes since then he has felt very weak, not eating or drinking much having non bloody loose stools. He last urinated before bed last night. He has still been taking his medications including lasix daily despite not drinking and being weak. He denies CP/SOB. He did fall x 2 today he states he become so weak when he stands - no headstrike or LOC but fell onto his buttocks. MD Complaint: generalized weakness Onset (ago): week(s) Duration: progressively worsening Location: generalized Migration: none Severity: moderate Relieving factors: rest Exacerbating factors: movement Context: recent illness Associated symptoms: confusion, loss of appetite, nausea/vomiting and myalgias Related Data Home Medications ?Medication ?Instructions ?Recorded ?Confirmed aspirin 81 mg tablet,delayed 81 mg PO DAILY 06/21/20 11/15/24 release (Adult Low Dose Aspirin) lisinopril 20 mg tablet 20 mg PO DAILY 04/08/22 11/15/24 insulin glargine 100 unit/mL (3 40 unit subcut DAILY 01/07/23 11/15/24 mL) subcutaneous pen (Lantus Solostar U-100 Insulin) atorvastatin 40 mg tablet 40 mg PO BEDTIME 11/15/24 11/15/24 insulin glargine 100 unit/mL (3 25 unit subcut BEDTIME 11/15/24 11/15/24 mL) subcutaneous pen (Lantus Solostar U-100 Insulin) Previous Rx's ?Medication ?Instructions ?Recorded diabetic foot wear #1 ea 09/15/20 diabetic supplies, miscellan. #1 ea 09/15/20 furosemide 20 mg tablet 20 mg PO DAILY 30 days #30 tabs 12/14/20 amlodipine 5 mg tablet 5 mg PO DAILY #120 tabs 04/15/21 sertraline 100 mg tablet 100 mg PO DAILY 90 days #90 tabs 08/11/22 metoprolol succinate 50 mg 150 mg (3 x 50 mg) PO DAILY #270 08/30/22 tablet,extended release 24 hr tabs Allergies Allergy/AdvReac Type Severity Reaction Status Date / Time gabapentin Allergy Unknown Unknown Verified 11/17/24 10:05 ibuprofen AdvReac Mild GI upset Verified 11/17/24 10:05 omeprazole AdvReac Mild GI upset Verified 11/17/24 10:05 erythromycin base AdvReac Unknown GI PROBLEMS Verified 11/17/24 10:05 [ERYTHROMYCIN BASE] hydrocodone [From Vicodin] AdvReac Unknown GI upset, Verified 11/17/24 10:05 dizziness, vomiting Review of Systems Review of Systems: Constitutional : No Fever, pos Chills, pos Fatigue ENT/Mouth : No sore throat, pos Rhinorrhea Eyes: No Eye Pain, No Swelling, No Redness Cardiovascular : No Chest Pain, No SOB, No Dyspnea on Exertion Respiratory : No Cough, No Sputum Gastrointestinal : pos Nausea, No Vomiting, No Diarrhea, No abdominal Pain Genitourinary : No Dysuria, No Urinary Frequency, No Hematuria, Musculoskeletal : No joint pain, No Myalgias, No Joint Swelling Skin : No Skin Lesions, No rash Neuro : pos Weakness, No Numbness, No Dizziness, no Headache Psych : No Anxiety/Panic, No Depression All other systems reviewed and are negative [facility] Past Medical History Attestation statement: The following information was validated with the patient. Source: old records reviewed Medical History Diabetic neuropathy Hyperlipidemia Normal colonoscopy DM type 2 (diabetes mellitus, type 2) Type 2 diabetes mellitus with unspecified complications Pulmonary hypertension Left bundle branch block Heart failure with preserved ejection fraction Non-rheumatic aortic stenosis Atherosclerotic cardiovascular disease Gallstones CHF (congestive heart failure) Cardiomyopathy Pacemaker Morbid obesity HTN (hypertension), benign Reflux gastritis Lumbar back pain Surgical History History of coronary artery bypass graft x 3 History of permanent cardiac pacemaker placement (~04/12/20) Family History Family History Father Diabetes Mother Cardiovascular disease Social History Social History Alcohol intake: never Patient Tobacco Use Status: Never used Tobacco Advance Directives: Yes Advance Directives on File: Yes Advance Directives Date on File: 11/15/24 Physical Exam Vital Signs: Vital Signs: Last Vital Signs Temp 100.7 F H 11/17/24 13:25 Pulse 82 11/17/24 13:20 Resp 22 H 11/17/24 13:02 BP 113/56 L 11/17/24 13:20 Pulse Ox 97 11/17/24 13:02 O2 Del Method Room Air 11/17/24 13:02 BMI result Body Mass Index 34.8 Appearance: Alert. Oriented X3 but slow to respond initially stated 1976 then self corrected without pause. Mild acute distress. Eyes: Pupils equal, round and reactive to light. ENT: Pharynx very dry MM atraumatic Neck: Normal inspection. Neck supple. CVS: Normal heart rate and rhythm. Pulses normal. Respiratory: No respiratory distress. Breath sounds diminished R base Abdomen: Soft and nontender. Skin: Skin warm and dry. Normal skin color. Normal skin turgor. Extremities: No lower extremity edema. Neuro: Oriented X 3. No motor deficit. No sensory deficit. CN2-12 intact Course Course Course Narrative: suspect lactic acidosis due to dehydration and not infection or severe sepsis at this time 1128am troponin elevated denies chest pain he denies abdominal pain as well + orthostatic VS + fever due to COVID 19 Medications Administered Discontinued Medications Generic Name Dose Route Start Last Admin Trade Name Freq PRN Reason Stop Dose Admin Lactated Ringer's 1,000 mls @ 999 mls/hr 11/17/24 10:14 11/17/24 11:10 Lr IV 11/17/24 11:14 999 mls/hr .Q1H1M ONE Administration Medical Decision Making Medical Decision Making MDM Narrative: 74 yo male with hx of CHF preserved EF, NSVT/complete heart block has PPM in place, HLD, DM, neuropathy, CAD, gastritis, not on blood thinners here with c/o COVID dx 11/14 he notes he cannot eat or drink he cannot stand when he does he falls he denies head trauma, chest pain/sob, he is dehydrated appearing clinically and is weak and has some confusion though he does correct on his own - suspect COVID related dehydration, FEMI, orthostatic hypotension, encephalopathy. Labs, UA, CXR, fluids, orthostatics Differential Diagnosis Differential Diagnoses: The differential diagnosis associated with the presentation includes anemia, orthostatic hypotension, FEMI, dehydration, COVID related encephalopathy Admission/Observation Consideration of admission/observation: Escalation of care including admission/observation considered admitted given orthostatic hypotension FTT encephalopathy Consult Healthcare Provider Management of the patient was discussed with: Hospitalist Lab Data MDM Lab Attestation statement: I reviewed the patient's lab results. trop flat 11/17/24 10:47 11/17/24 10:47 Labs: Lab Results 11/17/24 11/17/24 11/17/24 Range/Units 10:47 10:55 13:32 WBC 3.7 L (4.8-10.8) X10*3/uL RBC 4.41 L (4.60-5.80) X10*6/uL Hgb 12.9 L (14.0-18.0) g/dl Hct 37.8 L (42.0-52.0) % MCV 85.7 (80.0-98.0) fL MCH 29.3 (27.0-33.0) pg MCHC 34.1 (31.0-36.0) g/dl RDW 14.2 (11.0-16.0) % Plt Count 118 L (160-400) X10*3/uL MPV 10.3 (9.4-12.4) fL Immature Gran % (Auto) 0.3 (0.0-0.4) % Neut % (Auto) 73.4 H (45-73) % Lymph % (Auto) 13.3 L (20-40) % [place] % (Auto) 12.2 H (2-11) % Eos % (Auto) 0.3 (0-4) % Baso % (Auto) 0.5 (0-2) % Lymph # (Auto) 0.5 L (1.2-4.9) X10*3/uL [place] # (Auto) 0.5 (0.1-1.2) X10*3/uL Eos # (Auto) 0.0 (0.0-0.4) X10*3/uL Baso # (Auto) 0.0 (0.0-0.2) X10*3/uL Abs Immat Gran (auto) 0.01 (0.00-0.03) X10*3/uL Absolute Neuts (auto) 2.7 (2.0-8.3) x10*3/uL Absolute Nucleated RBC 0.000 (0.0-0.012) X10*3/uL Nucleated RBC % (auto) 0.0 (0.0-0.2) /100WBC VBG pH 7.38 (7.32-7.43) VBG pCO2 41 mmHg VBG pO2 39 mmHg VBG HCO3 24 (22-26) mmol/L VBG O2 Saturation 61.0 % VBG Base Excess -0.4 mmol/L Sodium 135 (135-145) mmol/L Potassium 3.7 (3.3-5.1) mmol/L Chloride 102 (96-108) mmol/L Carbon Dioxide 23 (22-29) mmol/L Anion Gap 14 (12-20) BUN 21 H (9-16) mg/dL Creatinine 1.00 (0.5-1.4) mg/dL Estim Creat Clear Calc 76.9 Estimated GFR > 60 Random Glucose 166 H (60-115) mg/dL Lactic Acid 2.2 H* (0.5-2.0) mmol/L Lactic Acid F/U @ 2Hr 1.8 (0.5-2.0) mmol/L Calcium 9.1 (8.4-10.2) mg/dL Magnesium 1.9 (1.6-2.6) mg/dL Total Bilirubin 0.8 (0.0-1.0) mg/dL Direct Bilirubin 0.4 (0.0-0.5) mg/dL AST 49 H (5-37) U/L ALT 23 (0-40) U/L Alkaline Phosphatase 69 (39-117) U/L Total Creatine Kinase 237 H (38-174) U/L Troponin I High Sens 57.5 H 59.3 H (<3.5-35.0) ng/L C-Reactive Protein 8.78 H (< or = 0.50) mg/dL B-Natriuretic Peptide 257 H (<100) pg/mL Total Protein 7.9 (6.5-8.0) g/dL Albumin 3.6 (3.5-5.0) g/dL Lipase 31 (8-78) U/L Procalcitonin 0.11 ng/mL Influenza Type A (PCR) NEGATIVE (Negative) Influenza Type B (PCR) NEGATIVE (Negative) RSV RNA Qual (PCR) NEGATIVE (Negative) SARS-CoV-2 RNA (RT-PCR) POSITIVE A (Negative) Independent Interpretation I performed an independent interpretation of an: EKG and Plain X-Ray (no pneumonia) Interpretation: Rate: 78 Rhythm: NSR [place]: left Normal P waves. Normal KATIE. LBBB ST T wave : no YANICK, unchanged from prior LBBB pattern qTC: 501 prior studies: no sig change The study has been interpreted contemporaneously by me. . Radiology Impression Discussion of test interpretation with radiology: I have reviewed the radiologist's reading. Independent Historian Clinical information obtained from an independent historian. History obtained from or confirmed by: EMS External Record Review External record reviewed: Inpatient record and Outpatient record Discharge Plan Discharge Clinical Impression: COVID-19, Orthostatic hypotension, Adult failure to thrive, Encephalopathy due to 2019-nCoV Patient Disposition: Admitted As Inpatient Print Language: Kiswahili
--- NOTE | 2024-11-17 10:15 | MHC.EDTECH ---
Patient changed over, ED round and vitals competed, he is on the monitor and resting quietly in his bed, call chung within his reach.
--- NOTE | 2024-11-17 10:18 | ECG_ITS ---
Test Reason : WEAKNESS Blood Pressure : */* mmHG Vent. Rate : 78 BPM Atrial Rate : 78 BPM P-R Int : 224 ms QRS Dur : 162 ms QT Int : 440 ms P-R-T Axes : 79 -5 132 degrees QTcB Int : 501 ms Sinus rhythm with 1st degree A-V block Left bundle branch block Abnormal ECG When compared with ECG of 14-Nov-2024 21:12, No significant change was found Referred By: Mariam Jang Electronically Signed By: Milad Lomax
--- NOTE | 2024-11-17 10:21 | MHC.EDTECH ---
Patient was test positive for covid last week PURVI dove.
[2024-11-17 10:55] LABS: MANUAL DIFF FLAG NO
[2024-11-17 10:55] LABS: Venous Blood Gas Refer to POC result
[2024-11-17 10:56] LABS: Basophils Percent Auto 0.5 % (0-2); Eosinophils Percent Auto 0.3 % (0-4); Hematocrit 37.8 % (42.0-52.0); Hemoglobin 12.9 g/dl (14.0-18.0); Imm Gran Abs Auto 0.01 X10*3/uL (0.00-0.03); Imm Gran Pct Auto 0.3 % (0.0-0.4); Lymphocytes Absolute Auto 0.5 X10*3/uL (1.2-4.9); Lymphocytes Percent Auto 13.3 % (20-40); Mean Corpuscular HGB Conc 34.1 g/dl (31.0-36.0); Mean Corpuscular Hemoglobin 29.3 pg (27.0-33.0); Mean Corpuscular Volume 85.7 fL (80.0-98.0); Mean Platelet Volume 10.3 fL (9.4-12.4); Monocytes Absolute Auto 0.5 X10*3/uL (0.1-1.2); Monocytes Percent Auto 12.2 % (2-11); Neutrophils Absolute Auto 2.7 x10*3/uL (2.0-8.3); Neutrophils Percent Auto 73.4 % (45-73); Platelet Count 118 X10*3/uL (160-400); Red Blood Count 4.41 X10*6/uL (4.60-5.80); Red Cell Distribution Width 14.2 % (11.0-16.0); White Blood Count 3.7 X10*3/uL (4.8-10.8)
[2024-11-17 10:58] LABS: VBG Base Excess -0.4 mmol/L; VBG HCO3 24 mmol/L (22-26); VBG pCO2 41 mmHg; VBG pH 7.38 (7.32-7.43); VBG pO2 39 mmHg
[2024-11-17] MEDS: Lactated Ringers 1,000 ML 999 ML IV (11:10)
[2024-11-17 11:19] LABS: B Type Natriuretic Peptide 257 pg/mL (<100); Troponin-I High Sensitivity 57.5 ng/L (<3.5-35.0)
[2024-11-17 11:21] LABS: Alanine Aminotransferase 23 U/L (0-40); Albumin Level 3.6 g/dL (3.5-5.0); Alkaline Phosphatase 69 U/L (39-117); Anion Gap 14 (12-20); Aspartate Amino Transferase 49 U/L (5-37); Bilirubin Direct 0.4 mg/dL (0.0-0.5); Bilirubin Total 0.8 mg/dL (0.0-1.0); Blood Urea Nitrogen 21 mg/dL (9-16); C Reactive Protein 8.78 mg/dL (< or = 0.50); Calcium 9.1 mg/dL (8.4-10.2); Carbon Dioxide 23 mmol/L (22-29); Chloride 102 mmol/L (96-108); Creatinine Clr Calc Pharmacy 76.9; Estimated Glomerular Filt Rate > 60; Glucose Random 166 mg/dL (60-115); Lipase 31 U/L (8-78); Magnesium 1.9 mg/dL (1.6-2.6); Potassium 3.7 mmol/L (3.3-5.1); Sodium 135 mmol/L (135-145); Total Protein 7.9 g/dL (6.5-8.0)
[2024-11-17 11:26] LABS: Lactic Acid 2.2 mmol/L (0.5-2.0)
[2024-11-17 11:32] LABS: Influenza A PCR NEGATIVE (Negative); Influenza B PCR NEGATIVE (Negative); Resp Syncy Virus RNA Qual PCR NEGATIVE (Negative); SARS COV2 PCR INHOUSE POSITIVE (Negative)
[2024-11-17 11:36] LABS: Procalcitonin 0.11 ng/mL
[2024-11-17 12:56] LABS: Reflex Lactate? Lactic Acid Added
--- NOTE | 2024-11-17 13:09 | PC.NURSE ---
Pt's requesting to speak to provider, MD Jang made aware and at bedside.
[2024-11-17 13:54] LABS: ~Lactic Acid-LAB USE ONLY 1.8 mmol/L (0.5-2.0)
[2024-11-17 14:01] LABS: Troponin-I High Sensitivity 59.3 ng/L (<3.5-35.0)
[2024-11-17 14:12] LABS: Glucose, Whole Blood 154 mg/dL (60-115)
[2024-11-17] MEDS: Lactated Ringers 1,000 ML 80 ML IVCONT (14:49)
[2024-11-17] MEDS: Acetaminophen 1,000 MG/100 ML PIGGYBACK 400 MG IV (14:49)
--- NOTE | 2024-11-17 15:39 | P.HPHOSP_ITS ---
History of Present Illness Date of Service: 11/17/24 Attending physician on admission: Laura Sanchez Chief Complaint: Weakness, fall at home Pt is a 74-year-old male with a PMH significant for?HFpEF, NSVT/complete heart block s/p pacemaker in place, CAD s/p CABG, HTN, insulin-dependent type 2 diabetes, and peripheral neuropathy who presents to the ED with generalized weakness and multiple falls at home. Pt was previously seen in the ED 3 days prior on 11/14 and diagnosed with COVID. Pt lives with and daughter who also have similar symptoms for the past week. They noticed he had SOB, DIXON, and decreased activity and reduced p.o. intake the past 2 days. Apparently had multiple falls at home out of his recliner earlier in the day and was unable to stand up or ambulate. Pt did not qualify for STR and was discharged home from the ED. Since then pain has continued to feel increasingly fatigued and tired, had two more falls at home, one trying to get out of bed and another getting out of recliner. Pt reported lightheadedness and dizziness both times, falling on buttocks. Has apparently eating very little the past few days. Family also note pt has been increasingly confused, such as talking to the TV and not recognizing spouse, and appears to have a blank glazed look in his eyes when speaking to him. Has also been sleeping most of the day and for very long stretches per family. Has a family hx of dementia including father and brother. In the ED pt with low-grade fever 100.7 tachypnea of 24 and soft BP as low as 113/56. Satting at 97% on RA. Orthostatics positive. Labs were significant for leukopenia of 3.7, H&H 12.9/37.8, lactic acid 2.2 with repeat 1.8, CPK 237, troponins flat at 57.5 and repeat 59.3, CRP 8.78, and BNP 257. Continue to test positive for COVID. CXR showed no acute cardiopulmonary abnormality. X-ray of lumbar spine negative for acute abnormality, though showed moderate degenerative disc disease and unchanged s/p posterior fusion of L3 and L4. EKG demonstrated sinus rhythm with 1st degree AV block and LBBB, similar to prior. Pt was treated with IVF and acetaminophen. Pt will be admitted to the hospital for treatment and further evaluation of acute metabolic encephalopathy, generalized weakness, and orthostatic hypotension in the setting of physical deconditioning from acute COVID infection. Review of Systems 2 Review of Systems: Negative except for that which is stated in the HPI. [facility] Medical History Diabetic neuropathy Hyperlipidemia Normal colonoscopy DM type 2 (diabetes mellitus, type 2) Type 2 diabetes mellitus with unspecified complications Pulmonary hypertension Left bundle branch block Heart failure with preserved ejection fraction Non-rheumatic aortic stenosis Atherosclerotic cardiovascular disease Gallstones CHF (congestive heart failure) Cardiomyopathy Pacemaker Morbid obesity HTN (hypertension), benign Reflux gastritis Lumbar back pain Family History Father Diabetes Mother Cardiovascular disease Surgical History History of coronary artery bypass graft x 3 History of permanent cardiac pacemaker placement (~04/12/20) Social History Alcohol intake: never Patient Tobacco Use Status: Never used Tobacco Advance Directives: Yes Advance Directives on File: Yes Advance Directives Date on File: 11/15/24 Meds Allergies Allergy/AdvReac Type Severity Reaction Status Date / Time gabapentin Allergy Unknown Unknown Verified 11/17/24 10:05 ibuprofen AdvReac Mild GI upset Verified 11/17/24 10:05 omeprazole AdvReac Mild GI upset Verified 11/17/24 10:05 erythromycin base AdvReac Unknown GI PROBLEMS Verified 11/17/24 10:05 [ERYTHROMYCIN BASE] hydrocodone [From Vicodin] AdvReac Unknown GI upset, Verified 11/17/24 10:05 dizziness, vomiting Active Medications: Current Medications Lactated Ringer's (Lr) 1,000 mls @ 80 mls/hr IVCONT .[id number] ALEXI Last Admin: 11/17/24 14:49 Dose: 80 mls/hr Home Medications ?Medication ?Instructions ?Recorded ?Confirmed ?Last Taken ?Type aspirin 81 mg tablet,delayed 81 mg PO DAILY 06/21/20 11/15/24 11/13/24 History release (Adult Low Dose Aspirin) lisinopril 20 mg tablet 20 mg PO DAILY 04/08/22 11/15/24 11/13/24 History atorvastatin 40 mg tablet 40 mg PO BEDTIME 11/15/24 11/15/24 11/13/24 History insulin glargine 100 unit/mL (3 38 unit subcut BEDTIME 11/15/24 11/15/24 11/13/24 History mL) subcutaneous pen (Lantus Solostar U-100 Insulin) insulin glargine 100 unit/mL (3 44 unit subcut DAILY 11/17/24 Unknown History mL) subcutaneous pen (Lantus Solostar U-100 Insulin) Physical Exam 2 Vital Signs and Narrative: Vital Signs: Last Vital Signs Temp 100.7 F H 11/17/24 13:25 Pulse 82 11/17/24 13:20 Resp 22 H 11/17/24 13:02 BP 113/56 L 11/17/24 13:20 Pulse Ox 97 11/17/24 13:02 O2 Del Method Room Air 11/17/24 13:02 BMI result Body Mass Index 34.8 General: Alert and oriented to self and time, not to place. Partially oriented to situation. In no acute distress Resp: Mild expiratory wheezing. CVS: S1, S2, RRR GI: +BS, NT, no distention Skin: Warm, dry Neuro: Cranial nerves II-XII grossly intact bilaterally. Motor grossly intact bilaterally Extremities: No edema Psych: Appropriate affect Results Labs 11/17/24 10:47 11/17/24 10:47 Labs: Laboratory Results - last 24 hr 11/17/24 11/17/24 11/17/24 10:47 10:55 13:32 MCV 85.7 MCH 29.3 MCHC 34.1 RDW 14.2 Plt Count 118 L MPV 10.3 Immature Gran % (Auto) 0.3 Neut % (Auto) 73.4 H Lymph % (Auto) 13.3 L [place] % (Auto) 12.2 H Eos % (Auto) 0.3 Baso % (Auto) 0.5 Lymph # (Auto) 0.5 L [place] # (Auto) 0.5 Eos # (Auto) 0.0 Baso # (Auto) 0.0 Abs Immat Gran (auto) 0.01 Absolute Neuts (auto) 2.7 Absolute Nucleated RBC 0.000 Nucleated RBC % (auto) 0.0 VBG pH 7.38 VBG pCO2 41 VBG pO2 39 VBG HCO3 24 VBG O2 Saturation 61.0 VBG Base Excess -0.4 Anion Gap 14 Estim Creat Clear Calc 76.9 Estimated GFR > 60 POC Glucose Random Glucose 166 H Lactic Acid 2.2 H* Lactic Acid F/U @ 2Hr 1.8 Calcium 9.1 Magnesium 1.9 Total Bilirubin 0.8 Direct Bilirubin 0.4 AST 49 H ALT 23 Alkaline Phosphatase 69 Total Creatine Kinase 237 H C-Reactive Protein 8.78 H B-Natriuretic Peptide 257 H Total Protein 7.9 Albumin 3.6 Lipase 31 Procalcitonin 0.11 Influenza Type A (PCR) NEGATIVE Influenza Type B (PCR) NEGATIVE RSV RNA Qual (PCR) NEGATIVE SARS-CoV-2 RNA (RT-PCR) POSITIVE A 11/17/24 14:06 MCV MCH MCHC RDW Plt Count MPV Immature Gran % (Auto) Neut % (Auto) Lymph % (Auto) [place] % (Auto) Eos % (Auto) Baso % (Auto) Lymph # (Auto) [place] # (Auto) Eos # (Auto) Baso # (Auto) Abs Immat Gran (auto) Absolute Neuts (auto) Absolute Nucleated RBC Nucleated RBC % (auto) VBG pH VBG pCO2 VBG pO2 VBG HCO3 VBG O2 Saturation VBG Base Excess Anion Gap Estim Creat Clear Calc Estimated GFR POC Glucose 154 H Random Glucose Lactic Acid Lactic Acid F/U @ 2Hr Calcium Magnesium Total Bilirubin Direct Bilirubin AST ALT Alkaline Phosphatase Total Creatine Kinase C-Reactive Protein B-Natriuretic Peptide Total Protein Albumin Lipase Procalcitonin Influenza Type A (PCR) Influenza Type B (PCR) RSV RNA Qual (PCR) SARS-CoV-2 RNA (RT-PCR) Imaging Radiologist's Impressions: Impressions Chest X-Ray 11/17/24 10:18 IMPRESSION: Low lung volumes. No acute cardiopulmonary abnormality. Electronically signed by: David Rollins MD 11/17/2024 10:29 AM EDT RP Lumbar Spine X-Ray 11/17/24 10:39 IMPRESSION: Status post posterior fusion of L3 and L4 without change. Moderate degenerative disc disease. 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 Pt will be admitted to the hospital for treatment and further evaluation of acute metabolic encephalopathy, generalized weakness, and orthostatic hypotension in the setting of physical deconditioning from acute COVID infection. Acute metabolic encephalopathy and generalized weakness in the setting of acute COVID infection Increasing confusion, multiple falls at home, COVID+ Duonebs, guaifenisin PT evaluation Check TSH Monitor on supervisor adult education mentation Orthostatic hypotension Pt with lightheadedness and dizziness, orthosatitc positive Multifactorial: In the setting of COVID infection, reduced p.o. intake, and continued diuretic use Pt received IVF in the ED, placed on gentle IV hydration Hold furosemide for now Repeat orthostatics in the morning Question of underlying dementia Pt with family hx of dementia including father and brother Will get OT evaluation for MoCA assessment HFpEF Not in acute exacerbation Will hold Lasix due to orthostatic hypotension Reduce metoprolol to 12.5 b.i.d. for now HTN BP soft, hold amlodipine and lisinopril CAD Continue aspirin, statin Insulin-dependent type 2 diabetes Sliding-scale insulin, Lantus Diabetic diet Mood disorder Continue sertraline DNR/DNI Attending:?Dr. Sanchez DVT Prophylaxis: Lovenox Pt will require a hospitalization of at least two nights for treatment of acute metabolic encephalopathy, generalized weakness, and orthostatic hypotension in the setting of physical deconditioning from acute COVID infection.? with . Quality Stroke Does the patient have a stroke diagnosis?: No VTE Prior VTE?: No VTE Risk Level:: Medical - moderate - high VTE Device Contraindication: Treatment Not Indicated VTE Drug Contraindication: N/A - Med Ordered
[2024-11-17 17:57] LABS: TSH reflex Free T4 2.33 uIU/mL (0.32-4.0)
--- NOTE | 2024-11-17 19:00 | PHA.MEDREC ---
Addendum entered by Jenaro Bowen [facility] 11/17/24 19:26: Med rec checked by [facility] Original Note: Pharmacy Consult ? Medication Reconciliation Pharmacy has completed the medication reconciliation. Spoke to patients whife to confirm med list. was able to confirm all of patient home medications.
[2024-11-17] MEDS: Enoxaparin Sodium 40 MG/0.4 ML SYRINGE SUBCUT (19:14)
--- NOTE | 2024-11-17 19:18 | PC.NURSE ---
Patient sleeping, awakens easily to verbal stimuli. skin pink, warm, dry. resp even and non labored. speaking in full, clear sentences. denies pain. awaiting room assignment for admission
[2024-11-17 19:41] LABS: Glucose, Whole Blood 119 mg/dL (60-115)
[2024-11-17] MEDS: Albuterol/Iprat 2.5/0.5MG 3 ML AMPUL.NEB INHALE (20:01)
[2024-11-17 21:39] LABS: Appearance Urine Clear; Color Urine Yellow; Glucose Urine UA Negative (Negative); Leukocyte Esterase Urine Negative (Negative); Nitrite Urine Negative (Negative); PH 5.5 (5.0-9.0); Specific Gravity - Urine 1.015 (1.005-1.025); UMIC TRIGGER UACC YES; Urine Blood Negative (Negative); Urine Ketones Trace mg/dL (Negative); Urine Protein 30 (1+) mg/dL (Neg-Trace)
[2024-11-17] MEDS: Metoprolol Tartrate 12.5 MG HALFTAB PO (22:06)
[2024-11-17] MEDS: Atorvastatin Calcium 40 MG TABLET PO (22:06)
[2024-11-17] MEDS: Insulin Lispro 100 UNIT/ML 3 ML VIAL SUBCUT (22:06)
[2024-11-17] MEDS: Insulin Glargine,Hum.rec.anlog 100 UNIT/ML 10 ML VIAL 19 UNIT SUBCUT (22:13)
[2024-11-17 23:27] LABS: Bacteria Urine None Seen (None Seen); Hyaline Casts Urine 0-2 /LPF (0-2); RBC Urine 0-2 /HPF (0-2); Squamous Epithelial Cell Urine 0-2 /HPF (0-2); WBC Urine 0-5 /HPF (0-5)
[2024-11-18] VITALS (8 sets, daily range): BP systolic 126–168; BP diastolic 57–80; PULSE 66–87; RESP 18–20; TEMP 36.4–37.4; O2SAT 94–97
[2024-11-18] MEDS: 0.9 % Sodium Chloride Flush 3 ML SYRINGE IVFLUSH ×4 (01:51→23:54)
[2024-11-18] MEDS: HYDROcodone Bit/Acetam 5/325 TABLET 1 TAB PO (04:05)
[2024-11-18 07:11] LABS: Glucose, Whole Blood 161 mg/dL (60-115)
[2024-11-18 07:21] LABS: Glucose, Whole Blood 103 mg/dL (60-115)
[2024-11-18 08:12] LABS: Hematocrit 36.2 % (42.0-52.0); Hemoglobin 12.4 g/dl (14.0-18.0); Mean Corpuscular HGB Conc 34.3 g/dl (31.0-36.0); Mean Corpuscular Hemoglobin 29.4 pg (27.0-33.0); Mean Corpuscular Volume 85.8 fL (80.0-98.0); Mean Platelet Volume 11.3 fL (9.4-12.4); Red Blood Count 4.22 X10*6/uL (4.60-5.80); Red Cell Distribution Width 14.3 % (11.0-16.0); White Blood Count 2.7 X10*3/uL (4.8-10.8)
[2024-11-18 08:18] LABS: Platelet Count 97 X10*3/uL (160-400)
[2024-11-18 08:25] LABS: Anion Gap 13 (12-20); Blood Urea Nitrogen 15 mg/dL (9-16); Calcium 8.6 mg/dL (8.4-10.2); Carbon Dioxide 24 mmol/L (22-29); Chloride 105 mmol/L (96-108); Creatinine Clr Calc Pharmacy 113.2; Estimated Glomerular Filt Rate > 60; Glucose Random 99 mg/dL (60-115); Potassium 3.5 mmol/L (3.3-5.1); Sodium 138 mmol/L (135-145)
[2024-11-18] MEDS: Aspirin Enteric Coated 81 MG TABLET.DR PO (08:54)
[2024-11-18] MEDS: Metoprolol Tartrate 12.5 MG HALFTAB PO ×2 (08:54→20:19)
[2024-11-18] MEDS: Sertraline HCL 100 MG TABLET PO (08:54)
[2024-11-18] MEDS: Insulin Glargine,Hum.rec.anlog 100 UNIT/ML 10 ML VIAL 22 UNIT SUBCUT (08:54)
[2024-11-18 10:51] LABS: Glucose, Whole Blood 167 mg/dL (60-115)
--- NOTE | 2024-11-18 11:23 | MHC.CM.PN ---
Addendum entered by Archana Bueno RN 11/18/24 12:06: DTR J[facility]AT[facility] DOES NOT WANT [facility] PT HAD A BAD EXPERIENCE WHILE THERE. Original Note: IMM 11/18/24, EMR REVIEWED, CM RECEIVED CALL FROM DTR J[facility]ONAT[facility] ALBRIGHT, CM MET W/PT WHO GIVES VERBAL CONSENT FOR CM/NSG STAFF TO GIVE UPDATES TO, J[facility]ONATAN WOULD LIKE PT TO GO TO [facility] FOR STR AND PT IS AGREEABLE TO PLAN. PT REPORTS HE LIVES W/HIS , IS INDEP W/CARE, HAS A CANE/WALKER FOR DME, PT REPORTS HE USUALLY DOES NOT USE EITHER AT BASELINE, PT DENIES HOME SERVICES AND STR IS GOAL FOR DC. PT VERIFIES PCP/HCP ON FILE ARE CORRECT.
[2024-11-18] MEDS: Insulin Lispro 100 UNIT/ML 3 ML VIAL SUBCUT ×2 (11:44→16:43)
--- NOTE | 2024-11-18 13:00 | HO.PM.IMPN ---
Subjective Subjective Date of Service: 11/18/24 Interval History: seen and evaluated more alert and interactive still feeling weak and has no energy denies fever or chills no other events Review of Systems Review of Systems: Yes all other systems are reviewed and are negative Physical Exam Vital Signs: Vital Signs: Last Vital Signs Temp 98.6 F 11/18/24 11:11 Pulse 73 11/18/24 11:11 Resp 20 11/18/24 11:11 BP 152/65 H 11/18/24 11:11 Pulse Ox 96 11/18/24 11:11 O2 Del Method Room Air 11/18/24 11:11 BMI result Body Mass Index 36.9 Const: Other: Constitutional : interactive, not in distress Cardiovascular : no JVP, no lower extremity edema Respiratory : bilateral chest movement, not in resp distress Gastrointestinal: soft, lax, Non tender Skin : Warm, Dry Neurological : Alert & oriented , No focal deficit Objective Data Active Medications Acetaminophen (Acetaminophen 325 Mg Tablet) 650 mg PO Q6H PRN PRN Reason: Pain, Mild 1-3,fever,headache Hydrocodone Bitart/Acetaminophen (Hydrocodone Bit/Acetam 5/325 Tablet) 1 tab PO Q8H PRN PRN Reason: Pain, Severe (Pain Scale 7-10) Last Admin: 11/18/24 04:05 Dose: 1 tab Documented By: JOHNNY Albuterol Sulfate (Albuterol Sulfate 90 Mcg 8 Gm Inhaler) 2 puff INHALE RQ4H PRN PRN Reason: Wheezing Aspirin (Aspirin Enteric Coated 81 Mg Tablet.) 81 mg PO DAILY [facility] Last Admin: 11/18/24 08:54 Dose: 81 mg Documented By: ALANNA Atorvastatin Calcium (Atorvastatin Calcium 40 Mg Tablet) 40 mg PO BEDTIME [facility] Last Admin: 11/17/24 22:06 Dose: 40 mg Documented By: JOHNNY Calcium Carbonate (Calcium Carbonate 750 Mg Tab.Chew) 750 mg PO Q4H PRN PRN Reason: Heartburn Dextrose (Dextrose 50 % 25 Gm/50 Ml Syringe) 25 gm IVPUSH Q15M PRN; Protocol PRN Reason: per Hypoglycemia Standing Ord. Enoxaparin Sodium (Enoxaparin Sodium 40 Mg/0.4 Ml Syringe) 40 mg SUBCUT Q24H [facility] Last Admin: 11/17/24 19:14 Dose: 40 mg Documented By: MICHELLE Glucose (Glucose Gel 15 Gm Gel..Gram.) 15 gm PO Q15M PRN; Protocol PRN Reason: per Hypoglycemia Standing Ord. Guaifenesin/Dextromethorphan (Guaifenesin Dm 200/20/10 Ml 10 Ml Syrup) 10 ml PO Q4H PRN PRN Reason: Cough Insulin Glargine (Insulin Glargine,Hum.Rec.Anlog 100 Unit/Ml 10 Ml Vial) 19 unit SUBCUT BEDTIME [facility] Last Admin: 11/17/24 22:13 Dose: 19 unit Documented By: JOHNNY Insulin Glargine (Insulin Glargine,Hum.Rec.Anlog 100 Unit/Ml 10 Ml Vial) 22 unit SUBCUT DAILY [facility] Last Admin: 11/18/24 08:54 Dose: 22 unit Documented By: ALANNA Insulin Human Lispro (Insulin Lispro 100 Unit/Ml 3 Ml Vial) 0 unit SUBCUT QIDACHS [facility]; Protocol Last Admin: 11/18/24 11:44 Dose: 2 unit Documented By: ALANNA Magnesium Hydroxide (Milk Of Magnesia 30 Ml Oral.Susp) 30 ml PO DAILY PRN PRN Reason: Constipation Melatonin (Melatonin 3 Mg Tablet) 6 mg PO BEDTIME PRN PRN Reason: Insomnia Metoprolol Tartrate (Metoprolol Tartrate 12.5 Mg Halftab) 12.5 mg PO BID [facility]; Protocol Last Admin: 11/18/24 08:54 Dose: 12.5 mg Documented By: ALANNA Ondansetron HCl (Ondansetron Hcl 4 Mg/2 Ml Vial) 4 mg IVPUSH Q8H PRN PRN Reason: Nausea and Vomiting Sertraline HCl (Sertraline Hcl 100 Mg Tablet) 100 mg PO DAILY [facility] Last Admin: 11/18/24 08:54 Dose: 100 mg Documented By: ALANNA Sodium Chloride (0.9 % Sodium Chloride Flush 3 Ml Syringe) 3 ml IVFLUSH QSHIFT [facility] Last Admin: 11/18/24 08:54 Dose: 3 ml Documented By: ALANNA Labs 11/18/24 07:13 11/18/24 07:13 Labs: Laboratory Results - last 24 hr 11/17/24 11/17/24 11/17/24 10:47 13:32 14:06 MCV MCH MCHC RDW Plt Count MPV Absolute Nucleated RBC Nucleated RBC % (auto) Anion Gap Estim Creat Clear Calc Estimated GFR POC Glucose 154 H Random Glucose Lactic Acid F/U @ 2Hr 1.8 Calcium TSH 2.33 Urine Color Urine Appearance Urine pH Ur Specific [place] Urine Protein Urine Glucose (UA) Urine Ketones Urine Blood Urine Nitrite Ur Leukocyte Esterase Urine RBC Urine WBC Ur Squamous Epith Cells Urine Bacteria Hyaline Casts 11/17/24 11/17/24 11/17/24 19:37 21:19 21:33 MCV MCH MCHC RDW Plt Count MPV Absolute Nucleated RBC Nucleated RBC % (auto) Anion Gap Estim Creat Clear Calc Estimated GFR POC Glucose 119 H 161 H Random Glucose Lactic Acid F/U @ 2Hr Calcium TSH Urine Color Yellow Urine Appearance Clear Urine pH 5.5 Ur Specific [place] 1.015 Urine Protein 30 (1+) H Urine Glucose (UA) Negative Urine Ketones Trace Urine Blood Negative Urine Nitrite Negative Ur Leukocyte Esterase Negative Urine RBC 0-2 Urine WBC 0-5 Ur Squamous Epith Cells 0-2 Urine Bacteria None Seen Hyaline Casts 0-2 11/18/24 11/18/24 11/18/24 07:13 07:14 10:47 MCV 85.8 MCH 29.4 MCHC 34.3 RDW 14.3 Plt Count 97 L MPV 11.3 Absolute Nucleated RBC 0.000 Nucleated RBC % (auto) 0.0 Anion Gap 13 Estim Creat Clear Calc 113.2 Estimated GFR > 60 POC Glucose 103 167 H Random Glucose 99 Lactic Acid F/U @ 2Hr Calcium 8.6 TSH Urine Color Urine Appearance Urine pH Ur Specific [place] Urine Protein Urine Glucose (UA) Urine Ketones Urine Blood Urine Nitrite Ur Leukocyte Esterase Urine RBC Urine WBC Ur Squamous Epith Cells Urine Bacteria Hyaline Casts Microbiology Microbiology Results: Microbiology 11/17/24 10:47 Blood Culture - Preliminary Blood - Venous No growth after 24 hours. 11/17/24 10:47 Blood Culture - Preliminary Blood - Venous No growth after 24 hours. 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 Pt will be admitted to the hospital for treatment and further evaluation of acute metabolic encephalopathy, generalized weakness, and orthostatic hypotension in the setting of physical deconditioning from acute COVID infection. Acute metabolic encephalopathy and generalized weakness in the setting of acute COVID infection more alert and interactive today reported confusion, multiple falls at home worsened since COVID+ Duonebs, guaifenisin PT evaluation rec STR Monitor on telemetry redirection if needed Orthostatic hypotension improved with IV fluids Hold furosemide for now Repeat orthostatics in the morning Question of underlying dementia Pt with family hx of dementia including father and brother OT evaluation for MoCA assessment; scored 1830 HFpEF Not in acute exacerbation Will hold Lasix due to orthostatic hypotension Reduce metoprolol to 12.5 b.i.d. for now HTN BP soft, hold amlodipine and lisinopril CAD Continue aspirin, statin Insulin-dependent type 2 diabetes Sliding-scale insulin, Lantus Diabetic diet Mood disorder Continue sertraline DNR/DNI DVT Prophylaxis: Lovenox Pt will require a hospitalization overnight for treatment of acute metabolic encephalopathy, generalized weakness, and orthostatic hypotension in the setting of physical deconditioning from acute COVID infection.? with . Quality Stroke Does the patient have a stroke diagnosis?: No VTE Prior VTE?: No VTE Risk Level:: Medical - moderate - high VTE Device Contraindication: Treatment Not Indicated VTE Drug Contraindication: N/A - Med Ordered
[2024-11-18 16:18] LABS: Glucose, Whole Blood 152 mg/dL (60-115)
[2024-11-18] MEDS: Enoxaparin Sodium 40 MG/0.4 ML SYRINGE SUBCUT (16:43)
[2024-11-18] MEDS: Atorvastatin Calcium 40 MG TABLET PO (20:19)
[2024-11-18] MEDS: Insulin Glargine,Hum.rec.anlog 100 UNIT/ML 10 ML VIAL 19 UNIT SUBCUT (20:20)
[2024-11-18 21:13] LABS: Glucose, Whole Blood 112 mg/dL (60-115)
[2024-11-19] VITALS (7 sets, daily range): BP systolic 114–162; BP diastolic 55–76; PULSE 65–72; RESP 16–18; TEMP 36.4–37.1; O2SAT 91–97
[2024-11-19] MEDS: HYDROcodone Bit/Acetam 5/325 TABLET 1 TAB PO ×2 (03:04→21:37)
[2024-11-19 06:19] LABS: MANUAL DIFF FLAG NO
[2024-11-19 06:22] LABS: Eosinophils Percent Auto 1.4 % (0-4); Hematocrit 36.1 % (42.0-52.0); Imm Gran Abs Auto 0.01 X10*3/uL (0.00-0.03); Imm Gran Pct Auto 0.3 % (0.0-0.4); Lymphocytes Percent Auto 35.3 % (20-40); Mean Corpuscular HGB Conc 33.2 g/dl (31.0-36.0); Mean Corpuscular Hemoglobin 28.8 pg (27.0-33.0); Mean Corpuscular Volume 86.6 fL (80.0-98.0); Mean Platelet Volume 11.1 fL (9.4-12.4); Monocytes Absolute Auto 0.2 X10*3/uL (0.1-1.2); Monocytes Percent Auto 8.3 % (2-11); Neutrophils Absolute Auto 1.6 x10*3/uL (2.0-8.3); Neutrophils Percent Auto 53.7 % (45-73); Platelet Count 101 X10*3/uL (160-400); Red Blood Count 4.17 X10*6/uL (4.60-5.80); White Blood Count 2.9 X10*3/uL (4.8-10.8)
[2024-11-19 06:37] LABS: Anion Gap 11 (12-20); Blood Urea Nitrogen 13 mg/dL (9-16); Calcium 8.4 mg/dL (8.4-10.2); Carbon Dioxide 23 mmol/L (22-29); Chloride 105 mmol/L (96-108); Estimated Glomerular Filt Rate > 60; Glucose Random 91 mg/dL (60-115); Potassium 3.4 mmol/L (3.3-5.1); Sodium 136 mmol/L (135-145)
[2024-11-19 07:47] LABS: Glucose, Whole Blood 92 mg/dL (60-115)
[2024-11-19] MEDS: Sertraline HCL 100 MG TABLET PO (08:59)
[2024-11-19] MEDS: 0.9 % Sodium Chloride Flush 3 ML SYRINGE IVFLUSH ×3 (08:59→21:38)
[2024-11-19] MEDS: Metoprolol Tartrate 12.5 MG HALFTAB PO ×2 (08:59→21:38)
[2024-11-19] MEDS: Aspirin Enteric Coated 81 MG TABLET.DR PO (08:59)
[2024-11-19] MEDS: Acetaminophen 325 MG TABLET 650 MG PO (08:59)
[2024-11-19] MEDS: Insulin Glargine,Hum.rec.anlog 100 UNIT/ML 10 ML VIAL 22 UNIT SUBCUT (09:00)
[2024-11-19 11:09] LABS: Glucose, Whole Blood 98 mg/dL (60-115)
--- NOTE | 2024-11-19 11:16 | MHC.CM.PN ---
Addendum entered by Lala Dewitt 11/19/24 13:29: DCP is for pt. to go to [facility] for STR on 11/20 via BLS after 2pm, CM informed pt and (HCP) and they are in agreement with plan. Original Note: Per rounds, pt. to likely DC on 11/20/24 to STR at [facility], referral updated, awaiting response. Cm to follow for DC needs.
--- NOTE | 2024-11-19 13:24 | HO.PM.IMPN ---
Subjective Subjective Date of Service: 11/19/24 Interval History: seen and evaluated reporting lower extremities spasms feeling weak and has no energy not eating much denies fever or chills no other events Review of Systems Review of Systems: Yes all other systems are reviewed and are negative Physical Exam Vital Signs: Vital Signs: Last Vital Signs Temp 98.1 F 11/19/24 11:39 Pulse 65 11/19/24 11:39 Resp 17 11/19/24 11:39 BP 114/55 L 11/19/24 11:39 Pulse Ox 92 11/19/24 11:39 O2 Del Method Room Air 11/19/24 11:39 BMI result Body Mass Index 36.9 Const: Other: Constitutional : interactive, not in distress Cardiovascular : no JVP, no lower extremity edema Respiratory : bilateral chest movement, not in resp distress Gastrointestinal: soft, lax, Non tender Skin : Warm, Dry Neurological : Alert & oriented , No focal deficit Objective Data Active Medications Acetaminophen (Acetaminophen 325 Mg Tablet) 650 mg PO Q6H PRN PRN Reason: Pain, Mild 1-3,fever,headache Last Admin: 11/19/24 08:59 Dose: 650 mg Documented By: ALANNA Hydrocodone Bitart/Acetaminophen (Hydrocodone Bit/Acetam 5/325 Tablet) 1 tab PO Q8H PRN PRN Reason: Pain, Severe (Pain Scale 7-10) Last Admin: 11/19/24 03:04 Dose: 1 tab Documented By: JOHNNY Albuterol Sulfate (Albuterol Sulfate 90 Mcg 8 Gm Inhaler) 2 puff INHALE RQ4H PRN PRN Reason: Wheezing Aspirin (Aspirin Enteric Coated 81 Mg Tablet.) 81 mg PO DAILY [facility] Last Admin: 11/19/24 08:59 Dose: 81 mg Documented By: ALANNA Atorvastatin Calcium (Atorvastatin Calcium 40 Mg Tablet) 40 mg PO BEDTIME [facility] Last Admin: 11/18/24 20:19 Dose: 40 mg Documented By: JOHNNY Calcium Carbonate (Calcium Carbonate 750 Mg Tab.Chew) 750 mg PO Q4H PRN PRN Reason: Heartburn Cyclobenzaprine HCl (Cyclobenzaprine Hcl 5 Mg Tablet) 5 mg PO TID PRN PRN Reason: Muscle Spasm Dextrose (Dextrose 50 % 25 Gm/50 Ml Syringe) 25 gm IVPUSH Q15M PRN; Protocol PRN Reason: per Hypoglycemia Standing Ord. Enoxaparin Sodium (Enoxaparin Sodium 40 Mg/0.4 Ml Syringe) 40 mg SUBCUT Q24H [facility] Last Admin: 11/18/24 16:43 Dose: 40 mg Documented By: ALANNA Glucose (Glucose Gel 15 Gm Gel..Gram.) 15 gm PO Q15M PRN; Protocol PRN Reason: per Hypoglycemia Standing Ord. Guaifenesin/Dextromethorphan (Guaifenesin Dm 200/20/10 Ml 10 Ml Syrup) 10 ml PO Q4H PRN PRN Reason: Cough Insulin Glargine (Insulin Glargine,Hum.Rec.Anlog 100 Unit/Ml 10 Ml Vial) 19 unit SUBCUT BEDTIME [facility] Last Admin: 11/18/24 20:20 Dose: 19 unit Documented By: JOHNNY Insulin Glargine (Insulin Glargine,Hum.Rec.Anlog 100 Unit/Ml 10 Ml Vial) 22 unit SUBCUT DAILY [facility] Last Admin: 11/19/24 09:00 Dose: 22 unit Documented By: ALANNA Insulin Human Lispro (Insulin Lispro 100 Unit/Ml 3 Ml Vial) 0 unit SUBCUT QIDACHS [facility]; Protocol Last Admin: 11/19/24 11:16 Dose: Not Given Documented By: ALANNA Non-Admin Reason: No Insulin Coverage Magnesium Hydroxide (Milk Of Magnesia 30 Ml Oral.Susp) 30 ml PO DAILY PRN PRN Reason: Constipation Melatonin (Melatonin 3 Mg Tablet) 6 mg PO BEDTIME PRN PRN Reason: Insomnia Metoprolol Tartrate (Metoprolol Tartrate 12.5 Mg Halftab) 12.5 mg PO BID [facility]; Protocol Last Admin: 11/19/24 08:59 Dose: 12.5 mg Documented By: ALANNA Ondansetron HCl (Ondansetron Hcl 4 Mg/2 Ml Vial) 4 mg IVPUSH Q8H PRN PRN Reason: Nausea and Vomiting Sertraline HCl (Sertraline Hcl 100 Mg Tablet) 100 mg PO DAILY [facility] Last Admin: 11/19/24 08:59 Dose: 100 mg Documented By: ALANNA Sodium Chloride (0.9 % Sodium Chloride Flush 3 Ml Syringe) 3 ml IVFLUSH QSHIFT [facility] Last Admin: 11/19/24 08:59 Dose: 3 ml Documented By: ALANNA Labs 11/19/24 06:10 11/19/24 06:10 Labs: Laboratory Results - last 24 hr 11/18/24 11/18/24 11/19/24 16:14 20:46 06:10 MCV 86.6 MCH 28.8 MCHC 33.2 RDW 14.0 Plt Count 101 L MPV 11.1 Immature Gran % (Auto) 0.3 Neut % (Auto) 53.7 Lymph % (Auto) 35.3 [place] % (Auto) 8.3 Eos % (Auto) 1.4 Baso % (Auto) 1.0 Lymph # (Auto) 1.0 L [place] # (Auto) 0.2 Eos # (Auto) 0.0 Baso # (Auto) 0.0 Abs Immat Gran (auto) 0.01 Absolute Neuts (auto) 1.6 L Absolute Nucleated RBC 0.000 Nucleated RBC % (auto) 0.0 Anion Gap 11 L Estim Creat Clear Calc 110.0 Estimated GFR > 60 POC Glucose 152 H 112 Random Glucose 91 Calcium 8.4 11/19/24 11/19/24 07:35 11:01 MCV MCH MCHC RDW Plt Count MPV Immature Gran % (Auto) Neut % (Auto) Lymph % (Auto) [place] % (Auto) Eos % (Auto) Baso % (Auto) Lymph # (Auto) [place] # (Auto) Eos # (Auto) Baso # (Auto) Abs Immat Gran (auto) Absolute Neuts (auto) Absolute Nucleated RBC Nucleated RBC % (auto) Anion Gap Estim Creat Clear Calc Estimated GFR POC Glucose 92 98 Random Glucose Calcium Microbiology Microbiology Results: Microbiology 11/17/24 10:47 Blood Culture - Preliminary Blood - Venous No growth after 48 hours. 11/17/24 10:47 Blood Culture - Preliminary Blood - Venous No growth after 48 hours. Assessment and Plan (1) Physical deconditioning: Status: Acute (2) Adult failure to thrive: Status: Acute (3) COVID-19: Status: Acute Plan Pt is a 74-year-old male with a PMH significant for?HFpEF, NSVT/complete heart block s/p pacemaker in place, CAD s/p CABG, HTN, insulin-dependent type 2 diabetes, and peripheral neuropathy who presents to the ED with generalized weakness and multiple falls at home. Pt will be admitted to the hospital for treatment and further evaluation of acute metabolic encephalopathy, generalized weakness, and orthostatic hypotension in the setting of physical deconditioning from acute COVID infection. Acute metabolic encephalopathy and generalized weakness in the setting of acute COVID infection more alert and interactive today reported confusion, multiple falls at home worsened since COVID+ Duonebs, guaifenisin PT evaluation rec STR Monitor on telemetry redirection if needed Orthostatic hypotension improved with IV fluids Hold furosemide for now Repeat orthostatics in the morning Question of underlying dementia Pt with family hx of dementia including father and brother OT evaluation for MoCA assessment; scored 1830 HFpEF Not in acute exacerbation Will hold Lasix due to orthostatic hypotension Reduce metoprolol to 12.5 b.i.d. for now HTN BP soft, hold amlodipine and lisinopril CAD Continue aspirin, statin Insulin-dependent type 2 diabetes Sliding-scale insulin, Lantus Diabetic diet Mood disorder Continue sertraline DNR/DNI DVT Prophylaxis: Lovenox Pt will require a hospitalization overnight for treatment of acute metabolic encephalopathy, generalized weakness, and orthostatic hypotension in the setting of physical deconditioning from acute COVID infection.? Quality Stroke Does the patient have a stroke diagnosis?: No VTE Prior VTE?: No VTE Risk Level:: Medical - moderate - high VTE Device Contraindication: Treatment Not Indicated VTE Drug Contraindication: N/A - Med Ordered
[2024-11-19 15:41] LABS: Glucose, Whole Blood 150 mg/dL (60-115)
[2024-11-19] MEDS: Enoxaparin Sodium 40 MG/0.4 ML SYRINGE SUBCUT (16:32)
[2024-11-19 19:54] LABS: Glucose, Whole Blood 180 mg/dL (60-115)
[2024-11-19] MEDS: Atorvastatin Calcium 40 MG TABLET PO (21:36)
[2024-11-19] MEDS: Cyclobenzaprine HCl 5 MG TABLET PO (21:36)
[2024-11-19] MEDS: Insulin Lispro 100 UNIT/ML 3 ML VIAL SUBCUT (21:38)
[2024-11-19] MEDS: Insulin Glargine,Hum.rec.anlog 100 UNIT/ML 10 ML VIAL 19 UNIT SUBCUT (21:38)
[2024-11-20 03:44] VITALS: BP 149/67; PULSE 69; RESP 16; TEMP 36.4; O2SAT 97
[2024-11-20] MEDS: Acetaminophen 325 MG TABLET 650 MG PO (05:21)
[2024-11-20 07:28] LABS: Glucose, Whole Blood 84 mg/dL (60-115)
[2024-11-20 08:00] VITALS: BP 164/70; PULSE 65; RESP 17; TEMP 36.3; O2SAT 97
[2024-11-20] MEDS: Aspirin Enteric Coated 81 MG TABLET.DR PO (09:34)
[2024-11-20] MEDS: Sertraline HCL 100 MG TABLET PO (09:34)
[2024-11-20] MEDS: Metoprolol Tartrate 12.5 MG HALFTAB PO (09:34)
[2024-11-20] MEDS: 0.9 % Sodium Chloride Flush 3 ML SYRINGE IVFLUSH (09:34)
[2024-11-20] MEDS: Insulin Glargine,Hum.rec.anlog 100 UNIT/ML 10 ML VIAL 22 UNIT SUBCUT (09:42)
--- NOTE | 2024-11-20 10:21 | MHC.CM.PN ---
PT SCHEDULED TO DC TO [facility] FOR STR TODAY AT 1430 VIA [facility] PT AND NOTIFIED YESTERDAY AND IN AGREEMENT
[2024-11-20 11:20] LABS: Glucose, Whole Blood 134 mg/dL (60-115)
[2024-11-20 11:49] VITALS: BP 130/56; PULSE 68; RESP 18; TEMP 36.7; O2SAT 97
--- NOTE | 2024-11-20 13:42 | PM.DS ---
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 Pt was previously seen in the ED 3 days prior on 11/14 and diagnosed with COVID. Pt lives with and daughter who also have similar symptoms for the past week. They noticed he had SOB, DIXON, and decreased activity and reduced p.o. intake the past 2 days. Apparently had multiple falls at home out of his recliner earlier in the day and was unable to stand up or ambulate. Pt did not qualify for STR and was discharged home from the ED. Since then pain has continued to feel increasingly fatigued and tired, had two more falls at home, one trying to get out of bed and another getting out of recliner. Pt reported lightheadedness and dizziness both times, falling on buttocks. Has apparently eating very little the past few days. Family also note pt has been increasingly confused, such as talking to the TV and not recognizing spouse, and appears to have a blank glazed look in his eyes when speaking to him. Has also been sleeping most of the day and for very long stretches per family. Has a family hx of dementia including father and brother. In the ED pt with low-grade fever 100.7 tachypnea of 24 and soft BP as low as 113/56. Satting at 97% on RA. Orthostatics positive. Labs were significant for leukopenia of 3.7, H&H 12.9/37.8, lactic acid 2.2 with repeat 1.8, CPK 237, troponins flat at 57.5 and repeat 59.3, CRP 8.78, and BNP 257. Continue to test positive for COVID. CXR showed no acute cardiopulmonary abnormality. X-ray of lumbar spine negative for acute abnormality, though showed moderate degenerative disc disease and unchanged s/p posterior fusion of L3 and L4. EKG demonstrated sinus rhythm with 1st degree AV block and LBBB, similar to prior. Pt was treated with IVF and acetaminophen. Pt will be admitted to the hospital for treatment and further evaluation of acute metabolic encephalopathy, generalized weakness, and orthostatic hypotension in the setting of physical deconditioning from acute COVID infection. Hospital course The patient was treated for the following: # Acute metabolic encephalopathy and generalized weakness in the setting of acute COVID infection. Improved back to baseline with conservative measures. # Physical deconditioning: PT evaluation rec STR # Pancytopenia, related to Covid19 infection. to be followed as outpatient with repeat CBC. # Orthostatic hypotension improved with IV fluids and holding furosemide as Repeat orthostatics morning. # Question of underlying dementia. family hx of dementia including father and brother. OT evaluation for MoCA assessment; scored 18/30. # HFpEF Not in acute exacerbation. Lasix was held due to orthostatic hypotension. To be restarted on discharge. Reduce metoprolol to 50 mg XL daily. # HTN BP remains soft, will continue to hold amlodipine and lisinopril on discharge. To evaluate the need as outpatient. Discharge plan Decrease Lantus to 22 daily and 20 at bedtime from 44 and 38 and adjust as needed Hold Lisinopril and Amlodipine; monitor blood pressure before restarting Decrease Metoprolol XL to 50 mg daily from 150 mg Flexiril as needed for muscles spasms Increase physical therapy as tolerated Time Attestation Discharge Coordination Time (in mins): 46 Quality: Safe Use of Opioids Does Pt have an Active Cancer Diagnosis on the Problem List?: No Quality: Stroke Does the patient have a stroke diagnosis?: No Physical Exam Vital Signs: Vital Signs: Last Vital Signs Temp 98.1 F 11/20/24 11:49 Pulse 68 11/20/24 11:49 Resp 18 11/20/24 11:49 BP 130/56 L 11/20/24 11:49 Pulse Ox 97 11/20/24 11:49 O2 Del Method Room Air 11/20/24 11:49 BMI result Body Mass Index 36.9 Const: Other: Constitutional : interactive, not in distress Cardiovascular : no JVP, no lower extremity edema Respiratory : bilateral chest movement, not in resp distress Gastrointestinal: soft, lax, Non tender Skin : Warm, Dry Neurological : Alert & oriented , No focal deficit DS: Data Data Completed and Pending Labs on day of discharge: Laboratory Results - last 24 hr 11/19/24 11/19/24 11/20/24 15:37 19:48 07:15 POC Glucose 150 H 180 H 84 11/20/24 11:16 POC Glucose 134 H Preliminary micro results at discharge 11/17/24 10:47 Blood Culture - Preliminary Blood - Venous No growth after 48 hours. 11/17/24 10:47 Blood Culture - Preliminary Blood - Venous No growth after 48 hours. Imaging Chest x-ray: Radiologist's impression: ITS Impressions Chest X-Ray 11/17/24 10:18 IMPRESSION: Low lung volumes. No acute cardiopulmonary abnormality. Electronically signed by: David Rollins MD 11/17/2024 10:29 AM EDT RP Lumbar Spine X-Ray 11/17/24 10:39 IMPRESSION: Status post posterior fusion of L3 and L4 without change. Moderate degenerative disc disease. Electronically signed by: David Rollins MD 11/17/2024 11:15 AM EDT RP Discharge Plan Discharge Anticipated Discharge Date/Time: 11/20/24 13:31 Patient Disposition: Xfer SNF Discharge Diagnosis: Physical deconditioning Covid19 infection Referrals: Y[facility] Malagon [Outside] Gopi Burks MD [Primary Care Provider] - 1 Week Discharge Medications: New cyclobenzaprine 5 mg Tablet 5 mg PO TID PRN (Reason: Muscle Spasm) Qty: 20 0RF Continued furosemide 20 mg tablet 20 mg PO DAILY 30 Days Qty: 30 2RF sertraline 100 mg tablet 100 mg PO DAILY 90 Days Qty: 90 1RF atorvastatin 40 mg tablet 40 mg PO BEDTIME hydrocodone-acetaminophen 5-325 mg tablet 1 tab PO Q8H PRN (Reason: Pain) (DME) diabetic foot wear See Rx Instructions .Route .MEDSUPPLY Qty: 1 0RF Rx Instructions: As directed (DME) diabetic supplies, miscellan. Misc See Rx Instructions .ROUTE .MEDSUPPLY Qty: 1 0RF Rx Instructions: DM shoes aspirin [Adult Low Dose Aspirin] 81 mg tablet,delayed release (DR/EC) 81 mg PO DAILY Changed metoprolol succinate 50 mg tablet extended release 24 hr 50 mg PO DAILY Qty: 270 3RF insulin glargine [Lantus Solostar U-100 Insulin] 100 unit/mL (3 mL) insulin pen 20 unit SUBCUT BEDTIME Qty: 15 0RF insulin glargine [Lantus Solostar U-100 Insulin] 100 unit/mL (3 mL) insulin pen 22 unit SUBCUT DAILY Qty: 15 0RF Held amlodipine 5 mg tablet 5 mg PO DAILY Qty: 120 0RF Hold Instructions: Monitor BP before restarting lisinopril 20 mg tablet 20 mg PO DAILY Hold Instructions: Monitor BP before restarting Discharge Orders: Discharge Order (Routine); Ordered 11/20/24 Ordered By: Laura Sanchez Diet: Diabetic diet Activity on Discharge: As tolerated Stand Alone Forms: Patient Portal Discharge page Print Language: Occitan Care Plan Goals: Decrease Lantus to 22 daily and 20 at bedtime from 44 and 38 and adjust as needed Hold Lisinopril and Amlodipine; monitor blood pressure before restarting Decrease Metoprolol XL to 50 mg daily from 150 mg Flexiril as needed for muscles spasms Increase physical therapy as tolerated Health Concerns: Covid physical deconditioning Plan of Treatment: Physical therapy Assessment: as above
--- NOTE | 2024-11-22 08:06 | P.CDIM_ITS ---
PROVIDER RESPONSE TEXT: To clarify, the appropriate diagnosis supported by the clinical indicators: Pancytopenia: Possible 2/2 Covid QUERY TEXT: PHYSICIAN'S DOCUMENTATION REQUEST Date of Query: 11/19/2024 09:27 AM EDT Patient Name: Wayne Singh Admit Date: 11/17/2024 Dear Laura Sanchez MD, A review of the medical record indicates additional documentation may be needed. Please review below and update the documentation accordingly. Clinical Indicators: LABS: WBC 2.7 L RBC 4.22 L PLT 97 L Increased weakness, SOB, chest pain, tachycardic, dizziness, fatigue, metabolic encephalopathy due to Covid 19. Based on the above, could you clarify if there is a diagnosis that correlates with the above labs: Pancytopenia possible, suspected, probable, cannot rule out etc. Labs indicate a diagnosis of (please specify) Other (explain) Clinically unable to determine (explain) Thank you, Chayito Oconnor, CCS, CDIS Use of terms such as suspected, likely, concern for, or probable (associated with a specific diagnosi s that is being evaluated, monitored, or treated as if it exists) are acceptable and can be coded in the inpatient se tting, when documented at the time of discharge. Please use your independent medical judgment in providing your response. THIS QUERY IS PART OF THE PERMANENT MEDICAL RECORD
== END 2024-11-20 15:51 | disposition skilled nursing facility (03) | DRG 177 ==
LOC: HO.ED 13:41 → HO.EDOVER 16:25 → HO.IMC 19:10
PROVIDERS: Admitting Provider Student in an Organized Health Care Education/Training Program; Emergency Provider Emergency Medicine; PCP Internal Medicine; Visit Provider Student in an Organized Health Care Education/Training Program
DX: U07.1 COVID-19 (principal); G93.41 Metabolic encephalopathy; I50.32 Chronic diastolic (congestive) heart failure; D61.818 Other pancytopenia; I11.0 Hypertensive heart disease with heart failure; Z66 Do not resuscitate; E11.40 Type 2 diabetes mellitus with diabetic neuropathy, unspecified; I25.10 Atherosclerotic heart disease of native coronary artery without angina pectoris; R53.81 Other malaise; Z95.1 Presence of aortocoronary bypass graft; F03.90 Unspecified dementia, unspecified severity, without behavioral disturbance, psychotic disturbance, mood disturbance, and anxiety; I95.1 Orthostatic hypotension; Z79.4 Long term (current) use of insulin; Z79.82 Long term (current) use of aspirin; Z79.899 Other long term (current) drug therapy
CPT/HCPCS: 0241U; 36415; 70450; 71045; 72100; 74177; 80048; 80053; 80076; 81001; 82550; 82803; 82947; 83605; 83690; 83735; 83880; 84145; 84443; 84484; 85025; 85027; 86140; 87040; 93005; 97162; 97166; 97530; 99285; J0131; J1650; J7120; Q9967

== ENCOUNTER → 2024-11-17 10:18 | Outpatient (BNV) | payer MEDICARE, OTHER, SELFPAY | PROVIDERS: Emergency Provider Emergency Medicine; PCP Internal Medicine; Visit Provider Radiology Diagnostic Radiology | DX: M51.360 Other intervertebral disc degeneration, lumbar region with discogenic back pain only (principal); R05.9 Cough, unspecified; R53.1 Weakness | CPT/HCPCS: 71045; 72100 ==

== ENCOUNTER → 2024-11-17 10:18 | Outpatient (BNV) | payer MEDICARE, OTHER, SELFPAY | PROVIDERS: Admitting Provider Student in an Organized Health Care Education/Training Program; Emergency Provider Emergency Medicine; PCP Internal Medicine; Visit Provider Internal Medicine Cardiovascular Disease | DX: I44.0 Atrioventricular block, first degree (principal); I44.7 Left bundle-branch block, unspecified | CPT/HCPCS: 93010 ==

== ENCOUNTER → 2024-11-17 16:09 | Outpatient (BNV) | payer MEDICARE, OTHER, SELFPAY | PROVIDERS: Admitting Provider Student in an Organized Health Care Education/Training Program; Emergency Provider Emergency Medicine; PCP Internal Medicine; Visit Provider Student in an Organized Health Care Education/Training Program | DX: R53.81 Other malaise (principal); R62.7 Adult failure to thrive; U07.1 COVID-19 | CPT/HCPCS: 99223; 99232; 99233; 99239 ==

== ENCOUNTER → 2025-03-13 23:59 | Outpatient (BNV) | payer MEDICARE, SELFPAY ==
--- NOTE | 2025-03-20 18:59 | MHC.OFFVIS ---
Intake Visit Reasons: Remote device check- [employer] Allergies gabapentin Allergy (Unknown, Verified 11/17/24 10:05) Unknown ibuprofen Adverse Reaction (Mild, Verified 11/17/24 10:05) GI upset omeprazole Adverse Reaction (Mild, Verified 11/17/24 10:05) GI upset erythromycin base (ERYTHROMYCIN BASE) Adverse Reaction (Unknown, Verified 11/17/24 10:05) GI PROBLEMS hydrocodone (From Vicodin) Adverse Reaction (Unknown, Verified 11/17/24 10:05) GI upset, dizziness, vomiting [facility] Medical History Diabetic neuropathy Hyperlipidemia Normal colonoscopy DM type 2 (diabetes mellitus, type 2) Type 2 diabetes mellitus with unspecified complications Pulmonary hypertension Left bundle branch block Heart failure with preserved ejection fraction Non-rheumatic aortic stenosis Atherosclerotic cardiovascular disease Gallstones CHF (congestive heart failure) Cardiomyopathy Pacemaker Morbid obesity HTN (hypertension), benign Reflux gastritis Lumbar back pain Surgical History History of coronary artery bypass graft x 3 History of permanent cardiac pacemaker placement (~04/12/20) Family History Father Diabetes Mother Cardiovascular disease Social History Household Members: Spouse and Children Housing: Homeless Do you presently have visiting nurse or other home services: No Alcohol intake: never Comment: chair alarm on bed Patient Tobacco Use Status: Never used Tobacco e-Cigarette/Vaping Use: Never Used Second Hand Smoke Exposure: No Advance Directives Date on File: 11/15/24 service: No Office Procedures Cardiac Device Check Cardiac Device Check Details: Date of service- 03/13/2025 ; Battery life >8 years; normal lead parameters; AP 4.5%; SLIP DUMPER 0.1%; no significant arrhythmias. Overall normal device function. [id number] Cardiac Device Interrogation, pacemaker Procedure code (CPT) selection complete Assessment & Plan Assessment & Plan (1) Pacemaker: Code(s): Z95.0 - Presence of cardiac pacemaker Category: Medical (2) Left bundle branch block: Code(s): I44.7 - Left bundle-branch block, unspecified Category: Medical Plan x Coding Level of Care Code Procedure Only Diagnoses Pacemaker Z95.0 Left bundle branch block I44.7 CPT Codes Cardiac Device Check - Cardiac Device 12: [id number] Cardiac Device Interrogation, pacemaker ([id number])
== END ==
PROVIDERS: PCP Internal Medicine; Visit Provider Internal Medicine
DX: I44.7 Left bundle-branch block, unspecified (principal); Z95.0 Presence of cardiac pacemaker
CPT/HCPCS: 93294

== ENCOUNTER → 2025-06-12 23:59 | Outpatient (BNV) | payer MEDICARE, OTHER, SELFPAY ==
--- NOTE | 2025-06-16 14:26 | MHC.OFFVIS ---
Intake Visit Reasons: Remote device check- [employer] Allergies gabapentin Allergy (Unknown, Verified 11/17/24 10:05) Unknown ibuprofen Adverse Reaction (Mild, Verified 11/17/24 10:05) GI upset omeprazole Adverse Reaction (Mild, Verified 11/17/24 10:05) GI upset erythromycin base (ERYTHROMYCIN BASE) Adverse Reaction (Unknown, Verified 11/17/24 10:05) GI PROBLEMS hydrocodone (From Vicodin) Adverse Reaction (Unknown, Verified 11/17/24 10:05) GI upset, dizziness, vomiting [facility] Medical History Diabetic neuropathy Hyperlipidemia Normal colonoscopy DM type 2 (diabetes mellitus, type 2) Type 2 diabetes mellitus with unspecified complications Pulmonary hypertension Left bundle branch block Heart failure with preserved ejection fraction Non-rheumatic aortic stenosis Atherosclerotic cardiovascular disease Gallstones CHF (congestive heart failure) Cardiomyopathy Pacemaker Morbid obesity HTN (hypertension), benign Reflux gastritis Lumbar back pain Surgical History History of coronary artery bypass graft x 3 History of permanent cardiac pacemaker placement (~04/12/20) Family History Father Diabetes Mother Cardiovascular disease Social History Household Members: Spouse and Children Housing: Homeless Do you presently have visiting nurse or other home services: No Alcohol intake: never Comment: chair alarm on bed Patient Tobacco Use Status: Never used Tobacco e-Cigarette/Vaping Use: Never Used Second Hand Smoke Exposure: No Advance Directives Date on File: 11/15/24 service: No Office Procedures Cardiac Device Check Cardiac Device Check Details: Date of service- 06/12/2025 ; Battery life >8 years; normal lead parameters; AP 18.4%; WOOD BOX MAKER 0.3%; no significant arrhythmias. Overall normal device function. [id number] Cardiac Device Interrogation, pacemaker Procedure code (CPT) selection complete Assessment & Plan Assessment & Plan (1) Pacemaker: Code(s): Z95.0 - Presence of cardiac pacemaker Category: Medical (2) Complete heart block: Code(s): I44.2 - Atrioventricular block, complete Category: Medical Plan x Coding Level of Care Code Procedure Only Diagnoses Pacemaker Z95.0 Complete heart block I44.2 CPT Codes Cardiac Device Check - Cardiac Device 12: [id number] Cardiac Device Interrogation, pacemaker ([id number])
== END ==
PROVIDERS: PCP Internal Medicine; Visit Provider Internal Medicine
DX: I44.2 Atrioventricular block, complete (principal); Z95.0 Presence of cardiac pacemaker
CPT/HCPCS: 93294

== ENCOUNTER 2025-08-26 20:14 | Emergency (ER) | payer MEDICARE, OTHER, SELFPAY ==
--- OUTSIDE RECORDS SUMMARY | 2024-11-23 02:15 | XMS_ITS ---
Author Organization Gopi Burks MD Address [address] [place] [phone] Care Team Providers Care Health Sciences Manager Name Role Phone Gopi Burks Primary Care Provider REASON FOR VISIT yearly fasting labs Encounters Encounter Location Date Provider Diagnosis Gopi Burks MD [address] [place] [address] [phone] 11/23/2024 Gopi Burks Type 2 diabetes jose itus with unspecified diabetic retinopathy with macular edema E11.311 ; Chronic systolic congestive heart failure I50.22 ; Essential hypertension I10 and Hypercholesterolemia E78.00 Assessments Encounter Date Diagnosis (ICD Code) Assessment Notes Treatment Notes Treatment Clinical Notes Section Notes 11/23/2024 Type 2 diabetes jose itus with unspecified diabetic retinopathy with macular edema (ICD-10 - E11.311) 11/23/2024 Chronic systolic congestive heart failure (ICD-10 - I50.22) 11/23/2024 Essential hypertensi on (ICD-10 - I10) 11/23/2024 Hypercholesterolemia (ICD-10 - E78.00) Plan Of Treatment Pending Test Test Name Order Date Complete Blood Count Auto Diff Comprehensive [place]. Panel Fast Lipid Panel 11/23/2024 PSA,Total (Free>4and<10) 11/23/2024 Microalbumin, Random 11/23/2024 Hemoglobin A1c 11/23/2024 UA ClnCatch+Micro w/rflx Cult 11/23/2024 Next Appt Details Provider Name:Gopi Fierro ier, 11/04/2025 10:45:00 AM, [address] [place] [address], [address], [place], [place], [phone], Progress Notes * Wayne HWANGDOB:1950 ( 75 yo M)Acc No.[id number]:11/23/2024 Progress Note Patient: Wayne QUILES Provider: Annita Burks MD :1950 A ge:74 Y S ex:Male Date:11/23/2024 Address:[address] [place], [place] [phone] Subjective: * Chief Complaints: * 1 . Yearly fasting labs. * Medical History: Objective: * Vitals: Assessment: * Assessment: 1. T ype 2 diabetes mellitus with unspecified diabetic retinopathy with macular edema - E11.311 (Primary) 2 . C hronic systolic congestive heart failure - I50.22 ?3. E ssential hypertension - I10 4 . H ypercholesterolemia - E78.00 Plan: * Treatment: 2. C hronic systolic congestive heart failure L AB: Complete Blood Count Auto Diff L AB: Comprehensive [place]. Panel Fast L AB: Lipid Panel L AB: PSA,Total (Free>4and<10) L AB: Microalbumin, Random L AB: Hemoglobin A1c L AB: UA ClnCatch+Micro w/rflx Cult 3. E ssential hypertension L AB: Complete Blood Count Auto Diff L AB: Comprehensive [place]. Panel Fast L AB: Lipid Panel L AB: PSA,Total (Free>4and<10) L AB: Microalbumin, Random L AB: Hemoglobin A1c L AB: UA ClnCatch+Micro w/rflx Cult 4. H ypercholesterolemia L AB: Complete Blood Count Auto Diff L AB: Comprehensive [place]. Panel Fast L AB: Lipid Panel L AB: PSA,Total (Free>4and<10) L AB: Microalbumin, Random L AB: Hemoglobin A1c L AB: UA ClnCatch+Micro w/rflx Cult * * The named appointment provid er may or may not be the originator of this progress note, and it is not deemed complete until electronically signed by the appointment provider. Sign off status: Pending * Provider: Annita Burks MD Date: 0 11/23/2024 Generated for Cheri zepeda/Sivakumar/Nereida on: 1 10/27/2024 09:11 PM EST
--- OUTSIDE RECORDS SUMMARY | 2024-11-23 10:21 | XMS_ITS ---
Author Organization Gopi Burks MD Address [address] [place] [phone] Care Team Providers Care Pneumatic Tube Repairer Name Role Phone Gopi Burks Primary Care Provider REASON FOR VISIT discharge Encounters Encounter Location Date Provider Diagnosis Gopi Burks MD [address] [place] [phone] 11/23/2024 Gopi Burks Plan Of Treatment Next Appt Details Provider Name:Gopi Fierro ier, 11/04/2025 10:45:00 AM, [address], Suite [facility], [place], [place], [phone], Progress Notes * FRANCISCO WayneDOB:1950 ( 74 yo M)Acc No.[id number]:11/23/2024 Patient: Wayne QUILES :1950 A ge:74 Y S ex:Male Address:[address] [place] [address], [phone] * true * Date: Generated for Printi ng/Falorenzog/eTransmitting on: 10/27/2024 09:12 PM EST
--- OUTSIDE RECORDS SUMMARY | 2024-11-30 12:00 | XMS_ITS ---
Author Organization Gopi Burks MD Address [address] [place] [phone] Care Team Providers Care Project Manager Finance Name Role Phone Gopi Burks Primary Care Provider Allergies Allergen (clinical drug ingredient) Drug/Non Drug Allergy documented on EMR Reaction Allergy Type Onset Date Status ibuprofen Ibuprofen GI Upset Drug Allergy Active erythromycin Erythromycin GI Upset Drug Allergy A ctive omeprazole Omeprazole GI Upset Drug Allergy Activ e gabapentin Gabapentin unknown Drug Allergy Activ e REASON FOR VISIT COMP Social History Tobacco Use: Social History Observation Description Date Details (start date - stop date) Never Smoker NA - NA Tobacco Use/Smoking Question Answer Notes Patient is a nonsmoker Additional Findings: Tobacco Non-User Cu rrent non-smoker, currently using no form of tobacco Alcohol Screen Question Answer Notes Did you have a drink containing alcohol in the p ast year? No Points 0 Interpretation Negative Encounters Encounter Location Date Provider Diagnosis Gopi Bruks MD [address] [place] [address] [place] [address] [phone] 11/30/2024 Gopi Burks Plan Of Treatment Next Appt Details Provider Name:Gopi Fierro ier, 11/04/2025 10:45:00 AM, [address], Suite [facility], [place], [place], [phone], Progress Notes * Wayne SINGHDOB:1950 ( 75 yo M)Acc No.[id number]:11/30/2024 Patient: Chely REMYWayne RANDOLPH Provider: Annita Burks MD :1950 A ge:74 Y S ex:Male Date:11/30/2024 Address:[address] [place] [address] [facility] Subjective: * Chief Complaints: * 1 . COMP. * HPI: D epression Screening: PHQ-9 L ittle interest or pleasure in doing things N ot at all, F eeling down, depressed, or hopeless N ot at all, T rouble falling or staying asleep, or sleeping too much N ot at all, F eeling tired or having little energy N ot at all, P oor appetite or overeating N ot at all, F eeling bad about yourself or that you are a failure, or have let yourself or your family down N ot at all, T rouble concentrating on things, such as reading the newspaper or watching television N ot at all, M oving or speaking so slowly that other people could have noticed; or the opposite, being so fidgety or restless that you have been moving around a lot more than usual N ot at all, T houghts that you would be better off or of hurting yourself in some way N ot at all, T otal Score 0 . C ommunication Needs: Communication Needs D oes the patient have a hearing impairment N o, D oes the patient have a vision impairment? Y es, I f yes, what is the vision impairment? G lasses, D oes the patient have a cognition impairment? N o. F all Risk: History H ave you had any falls with injury in the past year? N o, H ave you had two or more falls in the past year? N o. S DANIKA Questions: SDOH Questions I n the past year have you been worried about losing housing? N o, I n the past year have you or any family members you live with been unable to get any of the following when it was really needed? Check all that apply: N one. * Medical History: C olonoscopy 2015. told he doesn't need any further. * Family History: F ather: 85 yrs. M other: 59 yrs. 1 brother(s) . 3 daughter(s) . .? Father GI Bleed Mother- Cardiac, No pertinent family medical history, Denies mental health/substance abuse family history, No pertinent family medical history. * Social History: T obacco Use: T obacco Use/Smoking P atyeyo is a n onsmoker, A dditional Findings: Tobacco Non-User C urrent non-smoker, currently using no form of tobacco. D rugs/Alcohol: A lcohol Screen D id you have a drink containing alcohol in the past year? N o, P oints 0 , I nterpretation N egative. M iscellaneous: C affeine: yes, 1-2 cups per day. Children: yes. Exercise: no. Home smoke detector use: yes. Housing: owning. Living with: spouse. Marital status: . Occupation: weeks/months/years, unemployed,employed retired. Travel outside of the [place]: no. * Allergies: G abapentin: unknown, Ibuprofen: GI Upset, Omeprazole: GI Upset, Erythromycin: GI Upset. Objective: * Vitals: * P ast Orders: L ab:Lipid Panel (Order Date - 06/18/2024) (Collection Date & Time - 06/18/2024 07:00 AM) Value Reference Range Triglycerides 108 <150 - mg/dL Cholesterol 132 <200 - mg/dL LDL Cholesterol Calculated 77 <100 - mg/dL HDL Cholesterol 34 L >40 - mg/dL L ab:Comprehensive [place]. Panel Fast (Order Date - 06/18/2024) (Collection Date & Time - 06/18/2024 07:00 AM) Value Reference Range Sodium 142 135-145 - mmol/L Bilirubin Total 0.6 0.0-1.0 - mg/dL Aspartate Amino Transferase 34 5-37 - U/L Alanine Aminotransferase 29 0-40 - U/L Total Protein 8.2 H 6.5-8.0 - g/dL Albumin Level 3.9 3.5-5.0 - g/dL Alkaline Phosphatase 83 39-117 - U/L Potassium 3.9 3.3-5.1 - mmol/L Chloride 105 96-108 - mmol/L Carbon Dioxide 28 22-29 - mmol/L Anion Gap 13 12-20 - Blood Urea Nitrogen 21 H 9-16 - mg/dL Creatinine 1.05 0.5-1.4 - mg/dL Estimated Glomerular Filt Rate > 60 - Glucose Fasting 50 LL 60-99 - mg/dL Calcium 10.0 8.4-10.2 - mg/dL L ab:Complete Blood Count Auto Diff (Order Date - 06/18/2024) (Collection Date & Time - 06/18/2024 07:00 AM) Value Reference Range White Blood Count 10.2 4.8-10.8 - X10*3/uL Red Blood Count 4.80 4.60-5.80 - X10*6/uL Hemoglobin 14.0 14.0-18.0 - g/dl Hematocrit 43.8 42.0-52.0 - % Mean Corpuscular Volume 91.3 80.0-98.0 - fL Mean Corpuscular Hemoglobin 29.2 27.0-33.0 - pg Mean Corpuscular HGB Conc 32.0 31.0-36.0 - g/ dl Red Cell Distribution Width 13.9 11.0-16.0 - % Platelet Count 220 160-400 - X10*3/uL Mean Platelet Volume 10.4 9.4-12.4 - fL Neutrophils Percent Auto 56.2 45-73 - % Imm Gran Pct Auto 0.4 0.0-0.4 - % Lymphocytes Percent Auto 29.5 20-40 - % Monocytes Percent Auto 7.9 2-11 - % Eosinophils Percent Auto 4.2 H 0-4 - % Basophils Percent Auto 1.8 0-2 - % NRBC Pct Auto 0.0 0.0-0.2 - /100WBC Neutrophils Absolute Auto 5.7 2.0-8.3 - x10* 3/uL Imm Gran Abs Auto 0.04 H 0.00-0.03 - X10*3/uL Lymphocytes Absolute Auto 3.0 1.2-4.9 - X10* 3/uL Monocytes Absolute Auto 0.8 0.1-1.2 - X10*3/ uL Eosinophils Absolute Auto 0.4 0.0-0.4 - X10* 3/uL Basophils Absolute Auto 0.2 0.0-0.2 - X10*3/ uL NRBC Abs Auto 0.000 0.0-0.012 - X10*3/uL L ab:Hemoglobin A1c (Order Date - 06/18/2024) (Collection Date & Time - 06/18/2024 07:00 AM) Value Reference Range Hemoglobin A1c % 5.8 <6.0 - % Estimated Average Glucose 120 - mg/dL L ab:PSA,Total (Free>4and<10) (Order Date - 06/18/2024) (Collection Date & Time - 06/18/2024 07:00 AM) Value Reference Range PSA,Total (Free>4and<10) 1.15 0.00-4.00 - ng/ mL L ab:UA ClnCatch+Micro w/rflx Cult (Order Date - 06/25/2024) (Collection Date & Time - 06/25/2024 01:30 PM) Value Reference Range Color Urine Yellow - Appearance Urine Clear - PH 6.0 5.0-9.0 - Glucose Urine UA Negative Negative - mg/dL Urine Blood Negative Negative - Specific [place] - Urine 1.010 1.005-1.025 - Urine Protein Negative Neg-Trace - mg/dL Urine Ketones Negative Negative - mg/dL Nitrite Urine Negative Negative - Leukocyte Esterase Urine Negative Negative - RBC Urine 0-2 0-2 - /HPF WBC Urine 0-5 0-5 - /HPF Squamous Epithelial Cell Urine 0-2 0-2 - /HP F Bacteria Urine None Seen None Seen - Hyaline Casts Urine 0-2 0-2 - /LPF L ab:Microalbumin, Random (Order Date - 06/25/2024) (Collection Date & Time - 06/25/2024 01:30 PM) Value Reference Range Creatinine Urine 59.83 - mg/dL Microalbumin Urine 9.0 - mg/L Microalbum Creatinine Ratio Ur 15.0 <30 - ug/ mg cr Assessment: Plan: * Treatment: * * The named appointment provid er may or may not be the originator of this progress note, and it is not deemed complete until electronically signed by the appointment provider. Sign off status: Pending * Provider: Annita Burks MD Date: 0 11/30/2024 Generated for Cheri zepeda/Sivakumar/Nereida on: 1 10/27/2024 09:10 PM EST History and Physical Notes * HPI (History of Present Illness) Category Sub-Category Detail Notes Category Not es Depression Screening PHQ-9 Little inte rest or pleasure in doing things: Not at all Feeling down, depressed, or hopeless: No t at all Trouble falling or staying asleep, or sl eeping too much: Not at all Feeling tired or having little energy: N ot at all Poor appetite or overeating: Not at all Feeling bad about yourself o r that you are a failure, or have let yourself or your family down: Not at all Trouble concentrating on thi ngs, such as reading the newspaper or watching television: Not at all Moving or speaking so slowly that other people could have noticed; or the opposite, being so fidgety or restless that you have been moving around a lot more than usual: Not at all Thoughts that you would be b zay off or of hurting yourself in some way: Not at all Total Score: 0 SDOH Questions SDOH Questions In the past year have you been worried about losing housing?: No In the past year have you or any family members you live with been unable to get any of the following when it was really needed? Check all that apply:: None Fall Risk History Have you had any falls with injury i n the past year?: No Have you had two or more falls in the year?: No Communication Needs Communication Needs Does the patient have a hearing impairment: No Does the patient have a vision impairmen t?: Yes If yes, what is the vision impairment?: Glasses Does the patient have a cognition impair ment?: No
--- OUTSIDE RECORDS SUMMARY | 2024-12-14 05:35 | XMS_ITS ---
Author Organization Gopi Burks MD Address [address] [place] [phone] Care Team Providers Care Electrical Tryout Person Name Role Phone Gopi Burks Primary Care Provider REASON FOR VISIT Discharge summary Encounters Encounter Location Date Provider Diagnosis Gopi Burks MD [address] [place] [address] [address] [place] [phone] 12/14/2024 Gopi Burks Plan Of Treatment Next Appt Details Provider Name:Gopi Fierro ier, 11/04/2025 10:45:00 AM, [address] [place] [address], Suite [facility], [place], [place], [phone], Progress Notes * FRANCISCO WayneDOB:1950 ( 74 yo M)Acc No.[id number]:12/14/2024 Patient: Wayne QUILES :1950 A ge:74 Y S ex:Male Address:[address] [place] [address], [address] * true * Date: Generated for Printi ng/Falorenzog/eTransmitting on: 10/27/2024 09:11 PM EST
--- OUTSIDE RECORDS SUMMARY | 2024-12-16 08:45 | XMS_ITS ---
Author Organization Gopi Burks MD Address [address] [place], [place] [phone] Care Team Providers Care Wad Impregnator Name Role Phone Gopi Burks Primary Care Provider Allergies Allergen (clinical drug ingredient) Drug/Non Drug Allergy documented on EMR Reaction Allergy Type Onset Date Status ibuprofen Ibuprofen GI Upset Drug Allergy Active erythromycin Erythromycin GI Upset Drug Allergy A ctive omeprazole Omeprazole GI Upset Drug Allergy Activ e gabapentin Gabapentin unknown Drug Allergy Activ e Results Component Value Reference Range Notes Hemoglobin A1c Reviewed date:12/16/2024 01:40:15 PM Interpretation: Performing Lab: Notes/Report: Hemoglobin A1c 6.3 Glucose, finger stick Reviewed date:12/16/2024 01:32:08 PM Interpretation: Performing Lab: Notes/Report: Value 158 Reason For Referral Reason needs sleep study Diagnosis 1 Somnolence (R40.0) Referral Organization Gopi Burks MD Referring Provider First Name Gopi Referring Provider Last Name Kimmie Referring Provider Speciality Internal M edicine Referred Provider NADIA ARREDONDO Referred Provider Specialty Sleep Medici ne General Notes Sandra Jerry 0 12/24/2024 10:52:37 AM >info faxedClaritza Annette 12/31/2024 02:20:19 PM >left message for office to call meClaritza Annette 01/07/2025 11:53:54 AM >spoke with patient's she will get back to meClaritza Annette 01/14/2025 02:43:14 PM > spoke with patient's she said he doesn't want to go to this appointment . Message sent to PCP regarding this issue. Referral marked address Referral Priority Routine Reason R15.9 Fecal Incontin ence Diagnosis 1 Fecal incontinence ( R15.9) Referral Organization Gopi Burks MD Referring Provider First Name Gopi Referring Provider Last Name Kimmie Referring Provider Speciality Internal M edicine Referred Provider aDvid Rodríguez Referred Provider Specialty Gastroentero logy General Notes Sandra Jerry 0 12/24/2024 10:53:07 AM >info faxed, Sandra Jerry 12/31/2024 02:06:11 PM Spoke with office they said they have been trying to get a hold of patient with no response. Called and spoke with patient's . She stated she will to set up appt., Sandra Jerry 12/31/2024 02:23:47 PM > spoke with patient's , she is aware of the appt, Bela Powers 04/14/2025 08:47:38 AM >THE PATIENT HAS CANCELLED HIS APPT AND DID NOT WISH TO R/S PER PV GASTRO Referral Priority Routine Referral Appointment Date 04/13/2025 REASON FOR VISIT post visit form [facility] d/c summary being faxed to office. please call his 's _# [phone], Accompanied by Medications Medication SIG (Take, Route, Frequency, Duration) Notes Start Date End Date Status HYDROmorphone HCl 2 MG 1 tablet as neede d Orally every 6 hrs Not-Taking Lisinopril 20 MG TAKE 1 TABLET BY MECCA TH EVERY DAY for 90 Active Metoprolol Succinate ER 50 MG 1 tab po QD for 90 days Acti ve Celecoxib 200 MG 1 capsule with food Orally Once a day as needed for 30 day(s) 10/28/2022 Not-Taking HYDROcodone-Acetaminophen 5-325 MG 1 tablet as needed Orally every 8 hours as needed for 14 days 09/07/2024 Not-Taking Aspirin 81 81 MG 1 tablet Orally Once a day Active [place] 16 31G X 8 MM as directed s q twice a day for 90 days 02/26/2022 Active Atorvastatin Calcium 40 MG 1 tablet Orally Once a day Active amLODIPine Besylate 5 MG TAKE 1 TABLET B Y MOUTH EVERY DAY for 90 Active Sertraline HCl 100 MG TAKE 1 TABLET BY M OUTH EVERY DAY for 90 Active Furosemide 20 MG 1 tablet Orally Once a day Active Lantus SoloStar 100 UNIT/ML 20 units BID Subcutaneous daily Active Centrum Silver 50+Men - as directed Orally Active Problems Problem Type SNOMED Code ICD Code Onset Dates Problem Status W/U Status Risk Notes Problem Somnolence (72733564) Somnolence (R40.0) Active confirmed Problem Bowel incontinence (03827212) Fecal incontinence (R15.9) Active confirmed Vital Signs Blood pressure systolic 102 mm Hg 12/17/19 25 Blood pressure diastolic 60 mm Hg 025 Height 66 in 12/16/2024 Weight 238 lbs 12/16/2024 BMI 38.41 kg/m2 12/16/2024 Encounters Encounter Location Date Provider Diagnosis Gopi Burks MD [address] [place] [address] [place] [phone] 12/16/2024 Gopi Burks 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 E11.311 ; COVID-19 U07.1 ; Somnolence R40.0 and Fecal incontinence R15.9 Assessments Encounter Date Diagnosis (ICD Code) Assessment Notes Treatment Notes Treatment Clinical Notes Section Notes 12/16/2024 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 (ICD-10 - E11.311) doing better, will continue current regiment 12/16/2024 COVID-19 (ICD-10 - U07.1) has recoverded 12/16/2024 Somnolence (ICD-10 - R40.0) needs sleep study 12/16/2024 Fecal incontinence (ICD-10 - R15.9) referral back to dr rodríguez Plan Of Treatment Medication Medication Name Sig Start Date Stop Date Notes Lantus SoloStar 100 UNIT/ML 20 units BID Subcutaneous daily Treatment Notes Assessment Notes Type 2 diabetes mellitus wit h unspecified diabetic retinopathy with macular edema doing better, will continue current regiment COVID-19 has recoverded Somnolence needs sleep study Fecal incontinence referral back to dr rodríguez Referrals Referral Date Details 12/16/2024 12/16/2024, needs sl eep study, NADIA ARREDONDO 12/16/2024 12/16/2024, R15.9 Fe sj Incontinence, David Rodríguez Next Appt Details Follow Up: 4 Weeks, Reason: Provider Name:Gopi Fierro ier, 11/04/2025 10:45:00 AM, [address], [address], [place], [place], [phone], Progress Notes * Wayne HWANGDOB:1950 ( 74 yo M)Acc No.[id number]:12/16/2024 Patient: Wanye QUILES Provider: Annita Burks MD :1950 A ge:74 Y S ex:Male Date:12/16/2024 Address:[address] [place], [place] [phone] Subjective: * Chief Complaints: * p ost visit form [facility] d/c summary being faxed to office. please call his 's _# [phone] by * HPI: S ymptom(s): patient is a 74 yo male here for visit following recent discharge from [facility],discharge summaryhasbeen reviewed and medications reconcilled/ was hosptilaized with covid. is much better. doing much better. * ROS: G eneral/Constitutional: Denies C hills. D enies F atigue. D enies F ever. D enies H eadache. E NT: Denies S ore throat. R espiratory: Denies C ough. D enies S hortness of breath at rest. D enies S hortness of breath with exertion. G astrointestinal: Patient complaining of H FECAL INCONTINENCE. D enies?Diarrhea. D enies N ausea. * Medical History: * Surgical History: * Hospitalization/Major Diagno stic Procedure: * Medications: T akingCentrum Silver 50+Men - Tablet as directed Orally Furosemide 20 MG Tablet 1 tablet Orally Once a day Aspirin 81 81 MG Tablet Chewable 1 tablet Orally Once a day [place] 16 31G X 8 MM Miscellaneous as directed s q twice a day Atorvastatin Calcium 40 MG Tablet 1 tablet Orally Once a day amLODIPine Besylate 5 MG Tablet TAKE 1 TABLET BY MOUTH EVERY DAY Sertraline HCl 100 MG Tablet TAKE 1 TABLET BY MOUTH EVERY DAY Lantus SoloStar 100 UNIT/ML Solution Pen-injector 20 units BID Subcutaneous daily Lisinopril 20 MG Tablet TAKE 1 TABLET BY MOUTH EVERY DAY Metoprolol Succinate ER 50 MG Tablet Extended Release 24 Hour 1 tab po QD Taking Centrum Silver 50+Men - Tablet as directed Orally Taking Furosemide 20 MG Tablet 1 tablet Orally Once a day Taking Aspirin 81 81 MG Tablet Chewable 1 tablet Orally Once a day Taking [place] 01/14 31G X 8 MM Miscellaneous as directed s q twice a day Taking Atorvastatin Calcium 40 MG Tablet 1 tablet Orally Once a day Taking amLODIPine Besylate 5 MG Tablet TAKE 1 TABLET BY MOUTH EVERY DAY Taking Sertraline HCl 100 MG Tablet TAKE 1 TABLET BY MOUTH EVERY DAY Taking Lantus SoloStar 100 UNIT/ML Solution Pen-injector 20 units BID Subcutaneous daily Taking Lisinopril 20 MG Tablet TAKE 1 TABLET BY MOUTH EVERY DAY Taking Metoprolol Succinate ER 50 MG Tablet Extended Release 24 Hour 1 tab po QD Not-Taking/PRNCelecoxib 200 MG Capsule 1 capsule with food Orally Once a day as needed HYDROcodone-Acetaminophen 5-325 MG Tablet 1 tablet as needed Orally every 8 hours as needed HYDROmorphone HCl 2 MG Tablet 1 tablet as needed Orally every 6 hrs Medication List reviewed and reconciled with the patientNot-Taking/PRN Celecoxib 200 MG Capsule 1 capsule with food Orally Once a day as needed Not-Taking/PRN HYDROcodone-Acetaminophen 5-325 MG Tablet 1 tablet as needed Orally every 8 hours as needed Not-Taking/PRN HYDROmorphone HCl 2 MG Tablet 1 tablet as needed Orally every 6 hrs Medication List reviewed and reconciled with the patient * Allergies: G abapentin: unknownIbuprofen: GI UpsetOmeprazole: GI UpsetErythromycin: GI Upsetyes[Allergies Verified] Objective: * Vitals: H t: 66, Wt: 238, BMI:38.41, BP:102/60, Wt-k.96. * Examination: G eneral Examination: GENERAL APPEARANCE: a lert, well hydrated, in no distress.? HEAD: n ormocephalic. SKIN: g ood turgor. HEART: r egular rate and rhythm, no murmurs, rubs, gallops.? LUNGS: n o wheezes, rales, rhonchi, good air movement, clear to auscultation bilaterally. ABDOMEN: s oft, nontender, nondistended, no rebound tenderness, no organomegaly. Assessment: * Assessment: 1. C OVID-19 - U07.1 (Primary) 2 . T ype 2 diabetes mellitus with unspecified diabetic retinopathy with macular edema - E11.311 3 . S omnolence - R40.0? 4. F ecal incontinence - R15.9 Plan: * Treatment: 2. T ype 2 diabetes mellitus with unspecified diabetic retinopathy with macular edema Continue Lantus SoloStar Solution Pen-injector, 100 UNIT/ML, 20 units BID, Subcutaneous, daily.? L AB: Hemoglobin A1c (Collection Date & Time - 12/16/2024) Value Reference Range H emoglobin A1c 6.3 ?LAB: Glucose, finger stick (Collection Date & Time - 12/16/2024)* Value Reference Range V alue 158 Notes: doing better, will continue current regiment??3.?Somnolence? Notes: needs sleep study? Referral To:NADIA ARREDONDO??Sleep Medicine ?Reason:needs sleep study 4.?Fecal incontinence? Notes: referral back to dr rodríguez? Referral To:David Rodríguez??Gastroenterology ?Reason:R15.9 Fecal Incontinence * Procedure Codes: 8 2947 ASSAY, GLUCOSE, BLOOD QUANT, Modifiers: QW 58778 GLYCATED HEMOGLOBIN TEST, Modifiers: QW 43939 TRANS CARE MGMT 7 DAY DISCH * Follow Up: 4 Weeks * * Sign off status: Completed true * Provider: Annita Burks MD Date: 0 12/16/2024 Generated for Cheri ng/Sivakumar/eTransmitting on: 1 10/27/2024 09:12 PM EST History and Physical Notes * HPI (History of Present Illness) Category Sub-Category Detail Notes Category Not es Symptom(s) patient is a 74 yo male here for visit following recent discharge from [facility],discharge summaryhasbeen reviewed and medications reconcilled/ was hosptilaized with covid. is much better. doing much better. Examination Category Sub-Category Detail Notes Category Not es General Examination GENERAL APPEARANCE: alert, w ell hydrated, in no distress HEAD: normocephalic HEART: regular rate and rhy thm, no murmurs, rubs, gallops LUNGS: no wheezes, rales, r honchi, good air movement, clear to auscultation bilaterally ABDOMEN: soft, nontender, non distended, no rebound tenderness, no organomegaly SKIN: good turgor Consultation Request Notes Referral Date Referring Provider Referred Provider Not es 12/16/2024 Gopi Burks PAUL needs slee p study 12/16/2024 Gopi Burks Robert R15.9 Feca l Incontinence
--- OUTSIDE RECORDS SUMMARY | 2025-01-14 09:45 | XMS_ITS ---
Author Organization Gopi uBrks MD Address [address] [facility] [address] [place] [phone] Care Team Providers Care Cold Roll Operator Name Role Phone Gopi Burks Primary Care Provider REASON FOR VISIT FYI sleep study referral Encounters Encounter Location Date Provider Diagnosis Gopi Burks MD [address] [place] [address] [place] [phone] 01/14/2025 Gopi Burks Plan Of Treatment Next Appt Details Provider Name:Gopi Fierro ier, 11/04/2025 10:45:00 AM, [address] [place] [address], Suite [facility], [place], [place], [phone], Progress Notes * FRANCISCO WayneDOB:1950 ( 74 yo M)Acc No.[id number]:01/14/2025 Patient: Wayne QUILES :1950 A ge:74 Y S ex:Male Address:[address] [place] [address], [address] * true * Date: Generated for Printi katelyn/Marijag/eTransmitting on: 10/27/2024 09:12 PM EST
--- OUTSIDE RECORDS SUMMARY | 2025-01-31 06:30 | XMS_ITS ---
Author Organization Gopi Burks MD Address [address] [place], [place] [id number] Care Team Providers Care Costume Technician Name Role Phone Gopi Burks Primary Care Provider Allergies Allergen (clinical drug ingredient) Drug/Non Drug Allergy documented on EMR Reaction Allergy Type Onset Date Status ibuprofen Ibuprofen GI Upset Drug Allergy Active erythromycin Erythromycin GI Upset Drug Allergy A ctive omeprazole Omeprazole GI Upset Drug Allergy Activ e gabapentin Gabapentin unknown Drug Allergy Activ e Results Component Value Reference Range Notes Glucose, finger stick Reviewed date:01/31/2025 11:31:18 AM Interpretation: Performing Lab: Notes/Report: Value 183 REASON FOR VISIT 4 week, Accompanied by Medications Medication SIG (Take, Route, Frequency, Duration) Notes Start Date End Date Status Aspirin 81 81 MG 1 tablet Orally Once a day Active Atorvastatin Calcium 40 MG 1 tablet Orally Once a day Active Pen [place] 5/16 31G X 8 MM as directed s q twice a day for 90 days 02/26/2022 Active Sertraline HCl 100 MG TAKE 1 TABLET BY M OUTH EVERY DAY for 90 Active amLODIPine Besylate 5 MG TAKE 1 TABLET B Y MOUTH EVERY DAY for 90 Active Furosemide 20 MG 1 tablet Orally Once a day Not-Taking Centrum Silver 50+Men - as directed Orally Active HYDROmorphone HCl 2 MG 1 tablet as neede d Orally every 6 hrs Not-Taking Lantus SoloStar 100 UNIT/ML 22 units Q AM 20 Units Q PM Subcutaneous daily Active HYDROcodone-Acetaminophen 5-325 MG 1 tablet as needed Orally every 8 hours as needed for 14 days 09/07/2024 Not-Taking Metoprolol Succinate ER 50 MG 1 tab po QD for 90 days Acti ve Lisinopril 20 MG TAKE 1 TABLET BY MECCA TH EVERY DAY for 90 Not-Taking Celecoxib 200 MG 1 capsule with food Orally Once a day as needed for 30 day(s) 10/28/2022 Not-Taking Vital Signs Blood pressure systolic 90 mm Hg 02/01/20 25 Blood pressure diastolic 64 mm Hg 025 Height 66 in 01/31/2025 Weight 230 lbs 01/31/2025 BMI 37.12 kg/m2 01/31/2025 weight is down 8 pounds [facility] e 12-16-24 Encounters Encounter Location Date Provider Diagnosis Gopi Burks MD [address] [place], [place] [phone] 01/31/2025 Gopi Burks 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 says he doesn't believe in them 01/31/2025 Confusion (ICD-10 - R41.0) complains that he is confused and he agrees. she is frustrated as he is unwilling to do any testing that he need and she is washing her hands of trying to get him to move. he spends the entire day in a recliner or bed and states that he is old. 01/31/2025 Other refuses sleep study and colonoscopy Plan Of Treatment Treatment Notes Assessment Notes Somnolence refuses a sleep stud y. says he doesn't believe in them Confusion complains that he is confused and he agrees. she is frustrated as he is unwilling to do any testing that he need and she is washing her hands of trying to get him to move. he spends the entire day in a recliner or bed and states that he is old. Other refuses sleep study and colonoscopy Next Appt Details Follow Up: 3 Months, Reason: Provider Name:Gopi ruiz, 11/04/2025 10:45:00 AM, [address], [address], [place], [phone], Progress Notes * Wayne SINGHDOB:1950 ( 75 yo M)Acc No.[id number]:01/31/2025 Progress Notes Patient: Wayne QUILES Provider: Annita Burks MD :1950 A ge:75 Y S ex:Male Date:01/31/2025 Address:[address] [place] [address], [id number] Subjective: * Chief Complaints: * 4 weekAccompanied by * HPI: S ymptom(s): patient is a 74 yo male here for 4 week follow up visit/ refused to get sleep study/ doesn't believe in them. is getting better according to his . sleeps from 11 at night to 2 in afternoon says that he sleeps 24 hours at times. * ROS: G eneral/Constitutional: Denies C hills. D enies F atigue. D enies F ever. D enies H eadache. E NT: Denies S ore throat. E ndocrine: Denies D ifficulty sleeping. A dmits D izziness.?Denies E xcessive sweating. D enies E xcessive thirst. D enies F requent urination. R espiratory: Denies C ough. D enies S hortness of breath at rest. D enies S hortness of breath with exertion. C ardiovascular: Denies C hest pain at rest. D enies C hest pain with exertion. A dmits D izziness. D enies P alpitations. A dmits S hortness of breath. G astrointestinal: Denies D iarrhea. D enies N ausea. * Medical History: * Surgical History: * Hospitalization/Major Diagno stic Procedure: * Medications: T akingLantus SoloStar 100 UNIT/ML Solution Pen-injector 22 units Q AM 20 Units Q PM Subcutaneous daily Centrum Silver 50+Men - Tablet as directed Orally Aspirin 81 81 MG Tablet Chewable 1 tablet Orally Once a day Pen Bear[place]reek 01/14 31G X 8 MM Miscellaneous as directed s q twice a day Atorvastatin Calcium 40 MG Tablet 1 tablet Orally Once a day amLODIPine Besylate 5 MG Tablet TAKE 1 TABLET BY MOUTH EVERY DAY Sertraline HCl 100 MG Tablet TAKE 1 TABLET BY MOUTH EVERY DAY Metoprolol Succinate ER 50 MG Tablet Extended Release 24 Hour 1 tab po QD Taking Lantus SoloStar 100 UNIT/ML Solution Pen-injector 22 units Q AM 20 Units Q PM Subcutaneous daily Taking Centrum Silver 50+Men - Tablet as directed Orally Taking Aspirin 81 81 MG Tablet Chewable 1 tablet Orally Once a day Taking Pen [place] 01/14 31G X 8 MM Miscellaneous as [...] Release 24 Hour 1 tab po QD Not-Taking/PRNFurosemide 20 MG Tablet 1 tablet Orally Once a day Lisinopril 20 MG Tablet TAKE 1 TABLET BY MOUTH EVERY DAY Celecoxib 200 MG Capsule 1 capsule with food Orally Once a day as needed HYDROcodone-Acetaminophen 5-325 MG Tablet 1 tablet as needed Orally every 8 hours as needed HYDROmorphone HCl 2 MG Tablet 1 tablet as needed Orally every 6 hrs Medication List reviewed and reconciled with the patientNot-Taking/PRN Furosemide 20 MG Tablet 1 tablet Orally Once a day Not-Taking/PRN Lisinopril 20 MG Tablet TAKE 1 TABLET BY MOUTH EVERY DAY Not-Taking/PRN Celecoxib 200 MG Capsule 1 capsule with [...] Objective: * Vitals: H t: 66, Wt: 230, BMI:37.12, BP:90/64, Wt-k.33. weight is down 8 pounds since 12-16-24. * Examination: G eneral Examination: GENERAL APPEARANCE: p leasant, in no acute distress. HEAD: n ormocephalic. SKIN: g ood turgor. HEART: n o, rubs, gallops, regular rate and rhythm with 2/6 arleen. LUNGS: n o wheezes, rales, rhonchi, good air movement, clear to auscultation bilaterally. EXTREMITIES: n o edema. Assessment: * Assessment: 1. T ype 2 diabetes mellitus with unspecified diabetic retinopathy with macular edema - E11.311 (Primary) 2 . S omnolence - R40.0 3 . C onfusion - R41.0? Plan: * Treatment: Value Reference Range V alue 183 2.?Somnolence? Notes: refuses a sleep study. says he doesn't believe in them??3.?Confusion? Notes: complains that he is confused and he agrees. she is frustrated as he is unwilling to doany testing that he need and she is washing her hands of trying to get him to move. he spends the entire day in a recliner or bed and states that he is old. ??4.?Others? Notes: refuses sleep study and colonoscopy?? * Procedure Codes: 8 2947 ASSAY, GLUCOSE, BLOOD QUANT, Modifiers: QW G2211 Complex e/m visit add on * Follow Up: 3 Months * * Sign off status: Completed true * Provider: Annita Burks MD Date: 0 01/31/2025 Generated for Cheri zepeda/Sivakumar/eTmichellesmitting on: 1 10/27/2024 09:11 PM EST History and Physical Notes * HPI (History of Present Illness) Category Sub-Category Detail Notes Category Not es Symptom(s) patient is a 74 yo male here for 4 week follow up visit/ refused to get sleep study/ doesn't believe in them. is getting better according to his . sleeps from 11 at night to 2 in afternoon says that he sleeps 24 hours at times. Examination Category Sub-Category Detail Notes Category Not es General Examination GENERAL APPEARANCE: pleasant, in n o acute distress HEAD: normocephalic HEART: no, rubs, gallops, r egular rate and rhythm with 2/6 arleen LUNGS: no wheezes, rales, r honchi, good air movement, clear to auscultation bilaterally SKIN: good turgor EXTREMITIES: no edema
--- OUTSIDE RECORDS SUMMARY | 2025-02-25 06:04 | XMS_ITS ---
Author Organization Gopi Burks MD Address [address] [place] [id number] Care Team Providers Care Security Operations Specialist Name Role Phone Gopi Burks Primary Care Provider [phone] REASON FOR VISIT refills/med issue Medications Medication SIG (Take, Route, Frequency, Duration) Notes Start Date End Date Status Sertraline HCl 100 MG TAKE 1 TABLET BY M OUTH EVERY DAY Orally Once a day for 90 days Active Furosemide 20 MG 1 tablet Orally Once a day for 90 days Active Basaglar KwikPen 100 UNIT/ML 22 units in morning 20 units in eveningt Subcutaneous daily for 90 days 02/25/2025 Active Atorvastatin Calcium 40 MG 1 tablet Oral ly Once a day for 90 days Active Encounters Encounter Location Date Provider Diagnosis Gopi Burks MD [address] [place] [phone] 02/25/2025 Gopi Burks Hypercholesterolemia E78.00 and 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 E11.311 Assessments Encounter Date Diagnosis (ICD Code) Assessment Notes Treatment Notes Treatment Clinical Notes Section Notes 02/25/2025 Hypercholesterolemia (ICD-10 - E78.00) 02/25/2025 Type 2 diabetes jose itus with unspecified diabetic retinopathy with macular edema (ICD-10 - E11.311) Plan Of Treatment Medication Medication Name Sig Start Date Stop Date Notes Sertraline HCl 100 MG TAKE 1 TABLET BY M OUTH EVERY DAY Orally Once a day for 90 days Furosemide 20 MG 1 tablet Orally Once a day for 90 days Basaglar KwikPen 100 UNIT/ML 22 units in morning 20 units in eveningt Subcutaneous daily for 90 days 02/25/2025 Atorvastatin Calcium 40 MG 1 tablet Oral ly Once a day for 90 days Next Appt Details Provider Name:Gopi Fierro ier, 11/04/2025 10:45:00 AM, [address] [facility], [address], [place], [place], [phone], Progress Notes * Wayne HWANGDOB:1950 ( 75 yo M)Acc No.[id number]:02/25/2025 Patient: Wayne QUILES :1950 A ge:75 Y S ex:Male Address:[address] [place] [address], [id number] * Refills Refill Atorvastatin Calcium Tablet, 40 MG, Orally, 90, 1 tablet, Once a day, 90 days, Refills=3 Refill Sertraline HCl Tablet, 100 MG, Orally, 90, TAKE 1 TABLET BY MOUTH EVERY DAY, Once a day, 90 days, Refills=3 Refill Furosemide Tablet, 20 MG, Orally, 90, 1 tablet, Once a day, 90 days, Refills=3 Start Basaglar KwikPen Solution Pen-injector, 100 UNIT/ML, Subcutaneous, 12, 22 units in morning 20 units in eveningt, daily, 90 days, Refills=5 * true * Date: Generated for Cheri zepeda/Sivakumar/Nereida on: 10/27/2024 09:12 PM EST
--- OUTSIDE RECORDS SUMMARY | 2025-05-05 06:30 | XMS_ITS ---
Author Organization Gopi Burks MD Address [address] [place], [place] [phone] Care Team Providers Care Paper Novelty Maker Name Role Phone Gopi Burks Primary Care Provider [phone] Allergies Allergen (clinical drug ingredient) Drug/Non Drug Allergy documented on EMR Reaction Allergy Type Onset Date Status ibuprofen Ibuprofen GI Upset Drug Allergy Active erythromycin Erythromycin GI Upset Drug Allergy A ctive omeprazole Omeprazole GI Upset Drug Allergy Activ e gabapentin Gabapentin unknown Drug Allergy Activ e Results Component Value Reference Range Notes Hemoglobin A1c Reviewed date:05/05/2025 11:41:37 AM Interpretation: Performing Lab: Notes/Report: Hemoglobin A1c 7.7 Glucose, finger stick Reviewed date:05/05/2025 11:35:07 AM Interpretation: Performing Lab: Notes/Report: Value 80 REASON FOR VISIT 3 month, Accompanied by Medications Medication SIG (Take, Route, Frequency, Duration) Notes Start Date End Date Status Atorvastatin Calcium 40 MG 1 tablet Orally Once a day for 90 days Active Sertraline HCl 100 MG TAKE 1 TABLET BY M OUTH EVERY DAY Orally Once a day for 90 days Active Furosemide 20 MG 1 tablet Orally Once a day for 90 days Active Pen [place] 5/16 31G X 8 MM as directed s q twice a day for 90 days 02/26/2022 Active amLODIPine Besylate 5 MG TAKE 1 TABLET B Y MOUTH EVERY DAY for 90 Active Basaglar KwikPen 100 UNIT/ML 22 units in morning 20 units in eveningt Subcutaneous daily 02/25/2025 Active Centrum Silver 50+Men - as directed Orally Active Aspirin 81 81 MG 1 tablet Orally Once a day Active Metoprolol Succinate ER 50 MG 3 tabs once a day Orally Once a day for 90 days Active Lisinopril 20 MG TAKE 1 TABLET BY MECCA TH EVERY DAY for 90 Not-Taking Celecoxib 200 MG 1 capsule with food Orally Once a day as needed for 30 day(s) 10/28/2022 Not-Taking HYDROcodone-Acetaminophen 5-325 MG 1 tablet as needed Orally every 8 hours as needed for 14 days 09/07/2024 Not-Taking HYDROmorphone HCl 2 MG 1 tablet as neede d Orally every 6 hrs Not-Taking Problems Problem Type SNOMED Code ICD Code Onset Dates Problem Status W/U Status Risk Notes Problem Dementia ([id number]) Dementia (F03.90) Active confirmed Vital Signs Height 66 in 05/05/2025 Encounters Encounter Location Date Provider Diagnosis Gopi Burks MD [address] [place] [phone] 05/05/2025 Gopi Burks 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 E11.311 ; Somnolence R40.0 and Dementia F03.90 Assessments Encounter Date Diagnosis (ICD Code) Assessment Notes Treatment Notes Treatment Clinical Notes Section Notes 05/05/2025 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 (ICD-10 - E11.311) sugars a little low today but didn't eat since last night 05/05/2025 Somnolence (ICD-10 - R40.0) 05/05/2025 Dementia (ICD-10 - F03.90) refuses evaluiation Plan Of Treatment Medication Medication Name Sig Start Date Stop Date Notes Basaglar KwikPen 100 UNIT/ML 22 units in morning 20 units in eveningt Subcutaneous daily 02/25/2025 Metoprolol Succinate ER 50 MG 3 tabs once a day Orally Once a day for 90 days Treatment Notes Assessment Notes Type 2 diabetes mellitus wit h unspecified diabetic retinopathy with macular edema sugars a little low today but didn't eat since last night Dementia refuses evaluiation Next Appt Details Follow Up: 6 Months, Reason: Provider Name:Gopi ruiz, 11/04/2025 10:45:00 AM, [address], [address], [place], [place], [phone], Progress Notes * Chiara SINGH:1950 ( 75 yo M)Acc No.[id number]:05/05/2025 Progress Notes Patient: Wayne QUILES Provider: Annita Burks MD :1950 A ge:75 Y S ex:Male Date:05/05/2025 Address:[address] [place] [address] Subjective: * Chief Complaints: * 3 monthAccompanied by * HPI: S ymptom(s): patient is a 75 yo male here for 3 month follow up visit/ is aware that he is confused. can't remember anything. not walking at all. refuses to do anything. * ROS: G eneral/Constitutional: Denies C hills. D enies F atigue. D enies F ever. D enies H eadache. E NT: Denies S ore throat. E ndocrine: Denies D ifficulty sleeping. D enies D izziness.?Denies E xcessive sweating. D enies E xcessive thirst. D enies F requent urination. R espiratory: Denies C ough. D enies S hortness of breath at rest. D enies S hortness of breath with exertion. G astrointestinal: Denies D iarrhea. D enies N ausea. * Medical History: * Surgical History: * Hospitalization/Major Diagno stic Procedure: * Medications: T akingCentrum Silver 50+Men - Tablet as directed Orally Aspirin 81 81 MG Tablet Chewable 1 tablet Orally Once a day Pen Dry Prong 01/14 31G X 8 MM Miscellaneous as directed s q twice a day amLODIPine Besylate 5 MG Tablet TAKE 1 TABLET BY MOUTH EVERY DAY Metoprolol Succinate ER 50 MG Tablet Extended Release 24 Hour 3 tabs once a day Orally Once a day Atorvastatin Calcium 40 MG Tablet 1 tablet Orally Once a day Sertraline HCl 100 MG Tablet TAKE 1 TABLET BY MOUTH EVERY DAY Orally Once a day Furosemide 20 MG Tablet 1 tablet Orally Once a day Basaglar KwikPen 100 UNIT/ML Solution Pen-injector 22 units in morning 20 units in eveningt Subcutaneous daily Taking Centrum Silver 50+Men - Tablet as directed Orally Taking Aspirin 81 81 MG Tablet Chewable 1 tablet Orally Once a day Taking Pen Dry Prong 01/14 31G X 8 MM Miscellaneous as directed s q twice a day Taking amLODIPine Besylate 5 MG Tablet TAKE 1 TABLET BY MOUTH EVERY DAY Taking Metoprolol Succinate ER 50 MG Tablet Extended Release 24 Hour 3 tabs once a day Orally Once a day Taking Atorvastatin Calcium 40 MG Tablet 1 tablet Orally Once a day Taking Sertraline HCl 100 MG Tablet TAKE 1 TABLET BY MOUTH EVERY DAY Orally Once a day Taking Furosemide 20 MG Tablet 1 tablet Orally Once a day Taking Basaglar KwikPen 100 UNIT/ML Solution Pen-injector 22 units in morning 20 units in eveningt Subcutaneous daily Not-Taking/PRNLisinopril 20 MG Tablet TAKE 1 TABLET BY MOUTH EVERY DAY Celecoxib 200 MG Capsule 1 capsule with food Orally Once a day as needed HYDROcodone-Acetaminophen 5-325 MG Tablet 1 tablet as needed Orally every 8 hours as needed HYDROmorphone HCl 2 MG Tablet 1 tablet as needed Orally every 6 hrs Not-Taking/PRN Lisinopril 20 MG Tablet TAKE 1 TABLET BY MOUTH EVERY DAY Not-Taking/PRN Celecoxib 200 MG Capsule 1 capsule with food Orally Once a day as needed Not-Taking/PRN HYDROcodone-Acetaminophen 5-325 MG Tablet 1 tablet as needed Orally every 8 hours as needed Not-Taking/PRN HYDROmorphone HCl 2 MG Tablet 1 tablet as needed Orally every 6 hrs DiscontinuedLantus SoloStar 100 UNIT/ML Solution Pen-injector 22 units Q AM 20 Units Q PM Subcutaneous daily Medication List reviewed and reconciled with the patientDiscontinued Lantus SoloStar 100 UNIT/ML Solution Pen-injector 22 units Q AM 20 Units Q PM Subcutaneous daily Medication List reviewed and reconciled with the patient * Allergies: G abapentin: unknownIbuprofen: GI UpsetOmeprazole: GI UpsetErythromycin: GI Upsetyes[Allergies Verified] Objective: * Vitals: H t: 66. * Examination: G eneral Examination: GENERAL APPEARANCE: a lert, well hydrated, in no distress.? HEAD: n ormocephalic. SKIN: g ood turgor. HEART: r egular rate and rhythm, no murmurs, rubs, gallops.? LUNGS: n o wheezes, rales, rhonchi, good air movement, clear to auscultation bilaterally. Assessment: * Assessment: 1. T ype 2 diabetes mellitus with unspecified diabetic retinopathy with macular edema - E11.311 (Primary) 2 . S omnolence - R40.0 3 . D ementia - F03.90? Plan: * Treatment: Value Reference Range H emoglobin A1c 7.7 ?LAB: Glucose, finger stick (Collection Date & Time - 05/05/2025)* Value Reference Range V alue 80 Notes: sugars a little low today but didn't eat since last night??2.?Dementia? Notes: refuses evaluiation?? * Procedure Codes: 8 2947 ASSAY, GLUCOSE, BLOOD QUANT, Modifiers: QW 51287 GLYCATED HEMOGLOBIN TEST, Modifiers: QW G2211 Complex e/m visit add on * Follow Up: 6 Months * * Sign off status: Completed true * Provider: Annita Burks MD Date: 0 05/05/2025 Generated for Cheri zepeda/Sivakumar/Lizbethsmitting on: 1 10/27/2024 09:11 PM EST History and Physical Notes * HPI (History of Present Illness) Category Sub-Category Detail Notes Category Not es Symptom(s) patient is a 75 yo male here for 3 month follow up visit/ is aware that he is confused. can't remember anything. not walking at all. refuses to do anything Examination Category Sub-Category Detail Notes Category Not es General Examination GENERAL APPEARANCE: alert, w ell hydrated, in no distress HEAD: normocephalic HEART: regular rate and rhy thm, no murmurs, rubs, gallops LUNGS: no wheezes, rales, r honchi, good air movement, clear to auscultation bilaterally SKIN: good turgor
--- OUTSIDE RECORDS SUMMARY | 2025-06-27 10:09 | XMS_ITS ---
Author Organization Gopi Burks MD Address [address] [place] [address] [place] [phone] Care Team Providers Care Gravure Press Set Up Operator Name Role Phone Gopi Burks Primary Care Provider REASON FOR VISIT refill Medications Medication SIG (Take, Route, Frequency, Duration) Notes Start Date End Date Status HYDROcodone-Acetaminophen 5-325 MG 1 tablet as needed Orally every 8 hours as needed for 14 days 09/07/2024 Active Encounters Encounter Location Date Provider Diagnosis Gopi Burks MD [address] [place] [address] [place] [address] [phone] 06/27/2025 Gopi Burks Plan Of Treatment Medication Medication Name Sig Start Date Stop Date Notes HYDROcodone-Acetaminophen 5- 325 MG 1 tablet as needed Orally every 8 hours as needed for 14 days 09/07/2024 Next Appt Details Provider Name:Gopi Fierro ier, 11/04/2025 10:45:00 AM, [address] [place] [address], Suite [facility], [place], [place], [phone], Progress Notes * ERI WayneDOB:1950 ( 75 yo M)Acc No.[id number]:06/27/2025 Patient: Wayne QUILES :1950 A ge:75 Y S ex:Male Address:[address] [place] [address], [id number] * Refills Refill HYDROcodone-Acetaminophen Tablet, 5-325 MG, Orally, 20, 1 tablet as needed, every 8 hours as needed, 14 days, Refills=0 * true * Date: Generated for Cheri zepeda/Sivakumar/Nereida on: 10/27/2024 09:10 PM EST
--- NOTE | ~2025-08-26 | CT_ITS ---
CLINICAL HISTORY: LLQ Pain; r o divertic CT abdomen and pelvis with contrast Comparison: CT - CT ABDOMEN PELVIS W IV CON - 11/14/24 23:18 EDT Findings: Lung bases are clear. Heart size is normal. Extensive coronary artery calcifications present. Pacemaker leads in the right heart. Sternotomy wires are present. Spleen is mildly enlarged. Adrenal glands, liver are unremarkable. Mild atrophy of the pancreas. Layering stones within the gallbladder. No intra or extrahepatic biliary dilatation. There is a 10 mm non-obstructing stone within the right kidney. No right-sided hydronephrosis. No right ureteral stone. There is [id number]-[id number] left hydronephrosis with a delayed left nephrogram and asymmetric stranding around the left kidney. Within the proximal left ureter there is 5 mm stone. Distal left ureter is decompressed. No bowel obstruction, pneumoperitoneum, or pneumatosis. There are a few colonic diverticula but no evidence of diverticulitis. No ascites. Bilateral fat containing inguinal hernias present. Previous posterior L3-4 transpedicular fusion with interbody cage. Diffuse idiopathic skeletal hyperostosis of the thoracic spine. Abdominal aorta is normal caliber. Extensive calcification of the splenic artery. IMPRESSION: [id number]-rg-lgwbiuvd left hydronephrosis secondary to 5 mm stone in the proximal left ureter. This document has been electronically signed by: Matt Mosher MD on 08/27/2025 00:38:57
[2025-08-26 20:16] VITALS: BP 149/90; PULSE 81; O2SAT 98
[2025-08-26 20:20] VITALS: BP 178/69; PULSE 73; RESP 20; TEMP 36.9; O2SAT 99; BMI 32.2
--- NOTE | 2025-08-26 20:21 | ECG_ITS ---
Test Reason : EPIGASTRIC PAIN Blood Pressure : */* mmHG Vent. Rate : 74 BPM Atrial Rate : 74 BPM P-R Int : 244 ms QRS Dur : 160 ms QT Int : 438 ms P-R-T Axes : 47 -9 142 degrees QTcB Int : 486 ms Sinus rhythm with 1st degree A-V block Left bundle branch block Abnormal ECG When compared with ECG of 17-Nov-2024 11:04, No significant change was found Referred By: Addis Lennon Electronically Signed By: RADHA BETANCOURT MD
[2025-08-26 21:02] LABS: MANUAL DIFF FLAG NO
[2025-08-26 21:05] LABS: Hematocrit 46.0 % (42.0-52.0); Hemoglobin 15.0 g/dl (14.0-18.0); Imm Gran Abs Auto 0.03 X10*3/uL (0.00-0.03); Imm Gran Pct Auto 0.3 % (0.0-0.4); Lymphocytes Absolute Auto 1.7 X10*3/uL (1.2-4.9); Mean Corpuscular HGB Conc 32.6 g/dl (31.0-36.0); Mean Corpuscular Hemoglobin 28.9 pg (27.0-33.0); Mean Corpuscular Volume 88.6 fL (80.0-98.0); NRBC Abs Auto 0.000 X10*3/uL (0.0-0.012); NRBC Pct Auto 0.0 /100WBC (0.0-0.2); Platelet Count 186 X10*3/uL (160-400); Red Blood Count 5.19 X10*6/uL (4.60-5.80); White Blood Count 9.0 X10*3/uL (4.8-10.8)
--- OUTSIDE RECORDS SUMMARY | 2025-08-26 21:11 | XMS_ITS | Patient Health Record ---
Author Organization [facility] Address [address] [place] [id number] Care Team Providers Care Welder Production Line Gas Name Role Phone Kimmie GIRALDO, Gopi Primary Care Provider David Bruce [phone] Allergies Allergen (clinical drug ingredient) Drug/Non Drug Allergy documented on EMR Reaction Allergy Type Onset Date Status erythromycin Erythromycin Unknown Drug Allergy A ctive Vicodin Unknown Drug Allergy Active Reason For Referral No Information Medications Medication SIG (Take, Route, Frequency, Duration) Notes Start Date End Date Status Omeprazole 20 MG Capsule Delayed Release 1 capsule Orally Once a day Active Sertraline HCl 100 MG Tablet 1 tablet Orally Once a day A ctive Lantus 100 UNIT/ML Solution 45units Subcutaneous QD Acti ve metFORMIN HCl ER 750 MG Tablet Extended Release 24 Hour 1 tablet with evening meal Orally Once a day Active Lisinopril 40 MG Tablet 1 tablet Orally Once a day Active Simvastatin 40 MG Tablet 1 tablet in the evening Orally Once a day Active Invokana 300 MG Tablet 1 tablet Orally Once a day Active Metoprolol Tartrate 50 MG Tablet 1 tablet with food Orally Twice a day Active Acetaminophen-Codeine 300-30 MG Tablet 1 tablet as needed Orally twice a day Active ProAir HFA 108 (90 Base) MCG/ACT Aerosol Solution 2 puffs as needed Inhalation every 4 hrs Active Azithromycin 250 MG Tablet as described for bronchitis Orally prn Active Aspir-81 81 MG Tablet Delayed Release 1 tablet Orally Once a day Active guaiFENesin-Codeine 100-10 MG/5ML Syrup 5 ml as described for bronchitis Orally prn Active Immunizations Vaccine Route Administration Date Status Comme nts Flu vaccine no Preserv 3 and > Unknown 06/10/2016 Admin istered Social History Social History Additional Details Category Social Info Options Details Miscellaneous: Marital status: Occupation: retired Section Notes: Nonsmoker; no sig alcohol Problems Problem Type SNOMED Code ICD Code Onset Dates Problem Status W/U Status Risk Notes Problem Hypertension (32031074) Hypertension (I10) Active confirmed Problem Irregular bowel habits (398467636) Irregular bowel habits (R19.8) Active confirmed Problem Diarrhea (59094957) Diarrhea, unspecified type (R19.7) Active confirmed Problem Irritable bowel syndrome (48690279) Irritable bowel syndrome with both constipation and diarrhea (K58.2) Active confirmed Encounters Encounter Location Date Provider Diagnosis [facility] [address] [place] [address] 04/13/2025 David Orozco Plan Of Treatment Pending Test Test Name Order Date GI BIOPSY 03/12/2017 Future Test Test Name Order Date COLONOSCOPY 12/04/2016 Insurance Providers Payer Name Payer Address Payer Phone Subscriber Number Group Number Insured Name Patient Relationship to Insured Coverage Start Date Coverage End Date MEDICARE OF [place] [address] [place] [address] [id number] ERI BALBIR Self - patient is the insured [facility] [address] [place] [address] [phone] [id number] ERI BALBIR Self - patient is the insured Medical (General) History Medical History History ICD Code GERD-EGD in 2007--small HH, no esophagit is IDDM Hyperlipidemia Hypertension Denies [place], CVA,Lung disease,renal diseas e 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
--- OUTSIDE RECORDS SUMMARY | 2025-08-26 21:11 | XMS_ITS | Clinical Summary ---
Author Organization [facility] Address [address] [place] [address] Care Team Providers Care Veterinary Microbiologist Name Role Phone Gopi Burks MD Primary Care Provider Social History Tobacco Use Types Packs/Day Years Used Date Smoking Tobacco: Never Assessed Sex and Gender Information Value Date Recorded Sex Assigned at Not on file Legal Sex Male 1:27 AM EST Gender Identity Not on file Sexual Orientation Not on file Last Filed Vital Signs Vital Sign Reading Time Taken Comments Blood Pressure - - Pulse - - Temperature - - Respiratory Rate - - Oxygen Saturation - - Inhaled Oxygen Concentration - - Weight 102 kg (225 lb) 05/30/2022 2:16 PM EDT Height 172.7 cm (5' 8 ) 01/23/2022 1:54 PM EDT Body Mass Index 34.21 01/23/2022 1:54 PM EDT Plan of Treatment Health Maintenance Due Date Last Done Comments DTaP,Tdap,and Td Vaccines (1 - Tdap) 01/30/1968 Pneumococcal Vaccine: 50+ Ye ars (1 of 1 - PCV) 1999 Zoster Vaccines (1 of 2) 1999 RSV Immunization Adult Patie nts (1 - 1-dose 75+ series) 01/30/2024 Depression Screening 09/01/2024 COVID-19 Vaccine (1 - 2024-2 6 season) 2025 Influenza Vaccine (#1) 2025 HIB Vaccines Aged Out No longer eligi ble based on patient's age to complete this topic HPV Vaccines Aged Out No longer eligi ble based on patient's age to complete this topic Hepatitis A Vaccines Aged Out No long er eligible based on patient's age to complete this topic Hepatitis B Vaccines Aged Out No long er eligible based on patient's age to complete this topic IPV Vaccines Aged Out No longer eligi ble based on patient's age to complete this topic MMR Vaccines Aged Out No longer eligi ble based on patient's age to complete this topic Meningococcal ACWY Vaccine Aged Out N o longer eligible based on patient's age to complete this topic Meningococcal B Vaccine Aged Out No l onger eligible based on patient's age to complete this topic RSV Immunization Patients Un beto 20 months Aged Out No longer eligible b ased on patient's age to complete this topic Varicella Vaccines Aged Out No longer eligible based on patient's age to complete this topic Advance Directives Documents on File Type Date Recorded Patient Table Maker Expl anation Health Care Decision (hx) 01/16/2022 AD CANAS DIRECTIVE Health Care Decision (hx) 01/01/2022 AD CANAS DIRECTIVE Health Care Decision (hx) 01/01/2022 AD CANAS DIRECTIVE Health Care Decision (hx) 01/01/2022 AD CANAS DIRECTIVE Health Care Decision (hx) 01/01/2022 AD CANAS DIRECTIVE Health Care Decision (hx) 01/01/2022 AD CANAS DIRECTIVE Health Care Decision (hx) 01/01/2022 AD CANAS DIRECTIVE Health Care Decision (hx) 12/28/2021 AD CANAS DIRECTIVE Health Care Decision (hx) 12/28/2021 AD CANAS DIRECTIVE Health Care Decision (hx) 12/28/2021 AD CANAS DIRECTIVE Health Care Decision (hx) 12/28/2021 AD CANAS DIRECTIVE Health Care Decision (hx) 12/28/2021 AD CANAS DIRECTIVE Health Care Decision (hx) 12/28/2021 AD CANAS DIRECTIVE Care Teams Veterinary Microbiologist Relationship Specialty Start Date End Date Gopi Burks MD PCP - General Internal Medicine 12/04/21
--- OUTSIDE RECORDS SUMMARY | 2025-08-26 21:12 | XMS_ITS | Patient Health Record ---
Author Organization Gopi Burks MD Address [address] [place], [place] [id number] Care Team Providers Care Waiter/Waitress Name Role Phone Gopi Burks Primary Care [...] Interpretation: Performing Lab: Notes/Report: Hemoglobin A1c 6.3 Hemoglobin A1c Reviewed date:05/05/2025 11:41:37 AM Interpretation: Performing Lab: Notes/Report: Hemoglobin A1c 7.7 Glucose, finger stick Reviewed date:12/16/2024 01:32:08 PM Interpretation: Performing Lab: Notes/Report: Value 158 Glucose, finger stick Reviewed date:01/31/2025 11:31:18 AM Interpretation: Performing Lab: Notes/Report: Value 183 Glucose, finger stick Reviewed date:05/05/2025 11:35:07 AM Interpretation: Performing Lab: Notes/Report: Value 80 Troponin-I High Sensitivity Reviewed date:11/15/2024 12:02:51 PM Interpretation: Performing Lab:[facility], [address] [place] [phone] Notes/Report: Troponin-I High Sensitivity 55.7 <3.5-35.0 ng/L The [place] high sensitivity Troponin-I results should be used in conjunction with other diagnostic information such as ECG, clinical observations and information, and patient symptoms to aid in the diagnosis of MD. SARS-CoV2/FLU/RSV Reviewed date:11/15/2024 12:02:15 PM Interpretation: Performing Lab:[facility], [address] [place] [phone] Notes/Report: Influenza A PCR NEGATIVE Negative Influenza B PCR NEGATIVE Negative Resp Syncy Virus RNA Qual PCR NEGATIVE Negative SARS COV2 PCR INHOUSE POSITIVE Negative All test results must be correlated with clinical findings. Negative results do not preclude SARS-CoV2, influenza A virus, influenza B virus and/or RSV infection and should not be used as the sole basis for treatment or other patient management decisions. Negative results must be combined with clinical observations, patient history, and epidemiological information. This test has not been evaluated for monitoring treatment of infection. This test has been authorized by the FDA under an Emergency Use Authorization (EUA) for use by authorized laboratories. Testing performed on the [employer] GeneXpert utilizing real-time RT-PCR. All SARS CoV2 and positive influenza A/B results are reported to [facility]. Glucose, Whole Blood Reviewed date:11/15/2024 10:31:15 AM Interpretation: Performing Lab:[facility], [address] [place] [phone] Notes/Report: Glucose, Whole Blood 176 60-115 mg/dL METER # : [id number] UA ClnCatch+Micro w/rflx Cul t Reviewed date:11/19/2024 09:49:09 AM Interpretation: Performing Lab:[facility], [address] [place] [phone] Notes/Report: Urine, Clean Catch Color Urine Yellow Appearance Urine Clear PH 5.0 5.0-9.0 Glucose Urine UA Negative Negative mg/dL Urine Blood Small (1+) Negative Specific [place] - Urine >= 1.030 1.005-1.025 Urine Protein 100 (2+) Neg-Trace mg/dL Urine Ketones 40 Negative mg/dL Nitrite Urine Negative Negative Leukocyte Esterase Urine Negative Negative RBC Urine 0-2 0-2 /HPF WBC Urine 0-5 0-5 /HPF Squamous Epithelial Cell Urine 0-2 0-2 /HPF Bacteria Urine None Seen None Seen Hyaline Casts Urine 0-2 0-2 /LPF CT abdomen pelvis w con Reviewed date:11/15/2024 11:04:38 AM Interpretation: Performing Lab: Notes/Report: [address] [address] [address] Scan Report Signed Patient: Wayne Singh MR#: [id number] 6 : 1950 Acct:[id number] Age/Sex: 74 / M ADM Date: 11/14/24 Loc: HO.ED Attending Dr: Ordering Physician: Humphrey Dougherty Date of Service: 11/14/24 Procedure(s): CT abdomen pelvis w IV con Accession Number(s): [id number] cc: Gopi Bruks MD; Humphrey Dougherty Report Number: [id number]: Total DLP = 1005.45 mGy-cm CLINICAL HISTORY: right sided abdominal pain CT abdomen and pelvis with contrast Comparison: CT/REG - CT ABDOMEN PELVIS WO CON - 06/28/20 13:34 EDT Findings: The lung bases are clear. Previous sternotomy. Cholelithiasis and sludge in the gallbladder. No biliary ductal dilatation. Liver is within normal limits. Splenic granulomas. Pancreas atrophic and fatty infiltrated. Adrenal glands are normal. 8 mm nonobstructing right renal upper pole stone in 5 mm nonobstructing left renal stone. No ureteral stones and no hydronephrosis or hydroureter. Nonspecific bilateral perinephric stranding. No bowel obstruction, pneumoperitoneum, or pneumatosis. Mild colonic diverticulosis Appendix not identified. No free fluid fat containing bilateral inguinal hernias left larger than right. Prostate is normal in size. Mild urinary bladder wall thickening. Atherosclerotic vascular disease with no aneurysm of the abdominal aorta. Multilevel degenerative changes in the spine. Posterior hardware fusion at L3-4 no acute fracture. IMPRESSION: 1. Cholelithiasis and sludge in the gallbladder. 2. Bilateral nonobstructing renal stones. No ureteral stones or hydronephrosis. 3. Nonspecific mild bilateral perinephric stranding and mild thickening of urinary bladder wall may represent infection. Correlate with urinalysis. 4. Additional nonacute findings as described. This document has been electronically signed by: Chel Amato MD on 11/15/2024 00:44:36 Dictated By: Chel Amato MD Signed By: <Electronically signed by Chel Amato MD in OV> 11/15/24 0045 DD/ TD/TT: 11/15/2443 Pinmaker: [address] [address] [address] Scan Report Signed Patient: Wayne Singh MR#: [id number] 6 : 1950 Acct:[id number] Age/Sex: 74 / M ADM Date: 11/14/24 Loc: HO.ED Attending Dr: Ordering Physician: Humphrey Dougherty Date of Service: 11/14/24 Procedure(s): CT abdomen pelvis w IV con Accession Number(s): [id number] cc: Gopi Burks MD; Humphrey Dougherty Report Number: [id number]: Total DLP = 1005.45 mGy-cm CLINICAL HISTORY: ri ght sided abdominal pain CT abdomen and pelvi s with contrast Comparison: CT/REG - CT ABDOMEN PELVIS WO CON - 06/28/20 13:34 EDT Findings: The lung bases are clear. Previous sternotomy. Cholelithiasis and sludge in the gallbladder. No biliary ductal dilatation. Liver is within norm al limits. Splenic granulomas. Pancreas atrophic and fatty infiltrated. Adrenal glands are normal. 8 mm nonobstructing right renal upper pole stone in 5 mm nonobstructing left renal stone. No ureteral stones a nd no hydronephrosis or hydroureter. Nonspecific bilateral perinephri c stranding. No bowel obstruction , pneumoperitoneum, or pneumatosis. Mild colonic diverticulosis Appendix not identified. No free fluid fat containing bilateral inguinal hernias left larger than right. Prostate is normal i n size. Mild urinary bladder wall thickening. Atherosclerotic vascular disease with no aneurysm of the abdominal aorta. Multilevel degenerat charissa changes in the spine. Posterior hardware fusion at L3-4 no acute fracture. IMPRESSION: 1. Cholelithiasis an d sludge in the gallbladder. 2. Bilateral nonobstructing renal stones. No ureteral stones or hydronephrosis. 3. Nonspecific mild bilateral perinephric stranding and mild thickening of urinary bladder wall may represent infection. Correlate with urinalysis. 4. Additional nonacu te findings as described. This document has be en electronically signed by: Chel Amato MD on 11/15/2024 00:44:36 Dictated By: Chel Amato MD Signed By: <Electronically signed by Chel Amato MD in OV> 11/15/245 DD/ TD/TT: 11/15/2443 Pinmaker: CT head/brain wo con Reviewed date:11/15/2024 10:31:02 AM Interpretation: Performing Lab: Notes/Report: [address] [address] [address] Scan Report Signed Patient: Wayne Singh MR#: [id number] 6 : 1950 Acct:[id number] Age/Sex: 74 / M ADM Date: 11/14/24 Loc: HO.ED Attending Dr: Ordering Physician: Humphrey Dougherty Date of Service: 11/14/24 Procedure(s): CT head/brain wo IV con Accession Number(s): [id number] cc: Gopi Burks MD; Humphrey Dougherty Report Number: [id number]: Total DLP = 788.42 mGy-cm CLINICAL HISTORY: altered mental status CT head without contrast Comparison: CT - CT ANGIO HEAD NECK - 06/10/24 18:25 EDT Findings: No intra-axial mass, midline shift, hydrocephalus, or acute hemorrhage. There is atrophy. There are prominent bilateral nonspecific supratentorial white matter hypodensities in periventricular and subcortical white matter similar to previous examination and most suggestive of chronic small-vessel ischemic changes. Atherosclerotic vascular disease. There is no sinus or mastoid fluid. Right mastoid air cells poorly pneumatized. The orbits are unremarkable. There is no acute skull fracture. IMPRESSION: 1. No acute intracranial findings. 2. Stable nonacute findings as described. This document has been electronically signed by: Chel Amato MD on 11/15/2024 00:51:20 Dictated By: Chel Amato MD Signed By: <Electronically signed by Chel Amato MD in OV> 11/15/2451 DD/ TD/TT: 11/15/2450 Pinmaker: [address] [address] [address] Scan Report Signed Patient: Wayne Singh MR#: [id number] 6 : 1950 Acct:[id number] Age/Sex: 74 / M ADM Date: 11/14/24 Loc: HO.ED Attending Dr: Ordering Physician: Humphrey Dougherty Date of Service: 11/14/24 Procedure(s): CT head/brain wo IV con Accession Number(s): [id number] cc: Gopi Burks MD; Humphrey Dougherty Report Number: [id number]: Total DLP = 788.42 mGy-cm CLINICAL HISTORY: altered mental status CT head without contrast Comparison: CT - CT ANGIO HEAD NECK - 06/10/24 18:25 EDT Findings: No intra-axial mass, midline shift, hydrocephalus, or acute hemorrhage. There is atrophy. Th ere are prominent bilateral nonspecific supratentorial white matter hypodensities in periventricular and subcortical white matter similar to previous examination and most suggestive of chronic small-vessel ischemi c changes. Atherosclerotic vascular disease. There is no sinus or mastoid fluid. Right mastoid air cells poorly pneumatized. The orbits are unremarkable. There is no acute sk ull fracture. IMPRESSION: 1. No acute intracranial findings. 2. Stable nonacute findings as described. This document has be en electronically signed by: Chel Amato MD on 11/15/2024 00:51:20 Dictated By: Chel Amato MD Signed By: <Electronically signed by Chel Amato MD in OV> 11/15/24 0052 DD/ 0051 TD/TT: 11/15/24 0051 Pinmaker: XR chest 1V Reviewed date:11/15/2024 12:06:09 PM Interpretation: Performing Lab: Notes/Report: [facility] [address] [place] [address] XRay Report Signed Patient: Wayne Singh MR#: [id number] 6 : 1950 Acct:[id number] Age/Sex: 74 / M ADM Date: 11/14/24 Loc: HO.ED Attending Dr: Ordering Physician: Humphrey Dougherty Date of Service: 11/14/24 Procedure(s): XR chest 1V Accession Number(s): [id number] cc: Gopi Burks MD; Humphrey Dougherty CLINICAL HISTORY: weakness 1 view chest x-ray Comparison: CR - CHEST 1 VIEW - 05/16/18 20:23 EDT Findings: Heart size is top-normal. Atherosclerotic vascular disease of aortic arch. Previous sternotomy. Interval dual lead left-sided ICD. No consolidation, significant pleural effusion or pneumothorax. No acute fracture. IMPRESSION: 1. No acute findings. This document has been electronically signed by: Chel Amato MD on 11/15/2024 00:03:02 Dictated By: Chel Amato MD Signed By: <Electronically signed by Chel Amato MD in OV> 11/15/24 0004 DD/ 0003 TD/TT: 11/15/24 0003 Pinmaker: [place] [address] XRay Report Signed Patient: Wayne Singh MR#: [id number] 6 : 1950 Acct:[id number] Age/Sex: 74 / M ADM Date: 11/14/24 Loc: .ED Attending Dr: Ordering Physician: Humphrey Dougherty Date of Service: 11/14/24 Procedure(s): XR deborah st 1V Accession Number(s): [id number] cc: Gopi Burks MD; Humphrey Dougherty CLINICAL HISTORY: weakness 1 view chest x-ray Comparison: CR - DEBOR[address] ST 1 VIEW - 05/16/18 20:23 EDT Findings: Heart size is top-normal. Atherosclerotic vascular disease of aortic arch. Previous sternotomy. Interval dual lead left-sided ICD. No consolidation, significant pleural effusion or pneumothorax. No acute fracture. IMPRESSION: 1. No acute findings. This document has be en electronically signed by: Chel Amato MD on 11/15/2024 00:03:02 Dictated By: Chel Amato MD Signed By: <Electronically signed by Chel Amato MD in OV> 11/15/24 0004 DD/ 0003 TD/TT: 11/15/24 0003 Pinmaker: Glucose, Whole Blood Reviewed date:11/16/2024 10:07:27 AM Interpretation: Performing Lab:[facility], [address] [place] [phone] Notes/Report: Glucose, Whole Blood 288 60-115 mg/dL METER # : [id number] Glucose, Whole Blood Reviewed date:11/16/2024 12:04:04 PM Interpretation: Performing Lab:[facility], [address] [place] [phone] Notes/Report: Glucose, Whole Blood 146 60-115 mg/dL METER # : [id number] Glucose, Whole Blood Reviewed date:11/16/2024 12:04:12 PM Interpretation: Performing Lab:[address] [address] Notes/Report: Glucose, Whole Blood 215 60-115 mg/dL METER # : [id number] Troponin-I High Sensitivity Reviewed date:11/17/2024 03:13:50 PM Interpretation: Performing Lab:[facility], [address] [place] [phone] Notes/Report: Troponin-I High Sensitivity 59.3 <3.5-35.0 ng/L The [place] high sensitivity Troponin-I results should be used in conjunction with other diagnostic information such as ECG, clinical observations and information, and patient symptoms to aid in the diagnosis of MD. Glucose, Whole Blood Reviewed date:11/17/2024 03:13:42 PM Interpretation: Performing Lab:[address] [address] Notes/Report: Glucose, Whole Blood 154 60-115 mg/dL METER # : [id number] Lactic Acid-LAB USE ONLY Reviewed date:11/17/2024 03:13:57 PM Interpretation: Performing Lab:[address] [address] Notes/Report: Lactic Acid-LAB USE ONLY 1.8 0.5-2.0 mmol/L UA ClnCatch+Micro w/rflx Cul t Reviewed date:11/18/2024 12:32:29 PM Interpretation: Performing Lab:[address] [address] Notes/Report: Urine, Clean Catch Color Urine Yellow Appearance Urine Clear PH 5.5 5.0-9.0 Glucose Urine UA Negative Negative mg/dL Urine Blood Negative Negative Specific [place] - Urine 1.015 1.005-1.025 Urine Protein 30 (1+) Neg-Trace mg/dL Urine Ketones Trace Negative mg/dL Nitrite Urine Negative Negative Leukocyte Esterase Urine Negative Negative RBC Urine 0-2 0-2 /HPF WBC Urine 0-5 0-5 /HPF Squamous Epithelial Cell Urine 0-2 0-2 /HPF Bacteria Urine None Seen None Seen Hyaline Casts Urine 0-2 0-2 /LPF Venous Blood Gases - POC Reviewed date:11/17/2024 03:16:55 PM Interpretation: Performing Lab:[address] [address] Notes/Report: VBG pH 7.38 7.32-7.43 METER #: [id number] additional_comment: [facility] VBG pCO2 41 METER #: [id number] additional_comment: [facility] VBG pO2 39 METER #: [id number] additional_comment: [facility] VBG Base Excess -0.4 METER #: [id number] additional_comment: [facility] VBG HCO3 24 22-26 mmol/L METER #: [id number] additional_comment: [facility] VBG O2 % Saturation 61.0 METER #: [id number] additional_comment: bdeh XR lumbar spine 2-3V Reviewed date:11/17/2024 03:14:30 PM Interpretation: Performing Lab: Notes/Report: [address] [address] XRay Report Signed Patient: Wayne Singh MR#: [id number] 6 : 1950 Acct:[id number] Age/Sex: 74 / M ADM Date: 11/17/24 Loc: .ED Attending Dr: Ordering Physician: Mariam Jang DO Date of Service: 11/17/24 Procedure(s): XR lumbar spine 2-3V Accession Number(s): [id number] cc: Gopi Burks MD; Mariam Jang DO EXAMINATION: XR LUMBAR SPINE 2-3 VIEWS HISTORY: pain, fall COMPARISON: Comparison is made with the prior examination dated 06/13/2023. FINDINGS: AP, lateral, and coned down views of the lumbar spine are submitted. Osseous mineralization is normal. The examination is somewhat limited by difficulty in patient positioning. The patient is again noted to be status post posterior fusion of L3 and L4 with pedicle screws, spinal stabilization rods, and an intervertebral spacer. The hardware is intact. The vertebral bodies maintain normal height and alignment. There is moderate degenerative disc disease with disc space narrowing, osteophyte formation, and vacuum phenomenon. There is calcification of the abdominal aorta. XR/XR lumbar spine 2-3V IMPRESSION: Status post posterior fusion of L3 and L4 without change. Moderate degenerative disc disease. Electronically signed by: David Rollins MD 11/17/2024 11:15 AM EDT RP Dictated By: David Rollins MD Signed By: <Electronically signed by David Rollins MD in OV> 11/17/24 1115 DD/ 1039 TD/TT: 11/17/24 1101 Pinmaker: [place] [address] XRay Report Signed Patient: aWyne Singh MR#: [id number] 6 : 1950 Acct:[id number] Age/Sex: 74 / M ADM Date: 11/17/24 Loc: HO.ED Attending Dr: Ordering Physician: Mariam Jang DO Date of Service: 11/17/24 Procedure(s): XR lum bar spine 2-3V Accession Number(s): [id number] cc: Gopi Burks MD; Mariam Jang DO EXAMINATION: XR LUMB AR SPINE 2-3 VIEWS HISTORY: pain, fall COMPARISON: Comparis on is made with the prior examination dated 06/13/2023. FINDINGS: AP, latera l, and coned down views of the lumbar spine are submitted. Osseous mineralization is normal. The examination is somewhat limited by difficulty in patient positioning. The patient is again noted to be status post posterior fusion of L3 and L4 with pedicle screws, spin al stabilization rods, and an intervertebral spacer. The hardware is intact. The vertebral bodies maintain normal height and alignment . There is moderate degenerative disc disease with disc space narrowing , osteophyte formation, and vacuum phenomenon. There is calcificati on of the abdominal aorta. XR/XR lumbar spine 2-3V IMPRESSION: Status post posterio r fusion of L3 and L4 without change. Moderate degenerative disc disease. Electronically joel d by: David Rollins MD 11/17/2024 11:15 AM EDT RP Dictated By: David Rollins MD Signed By: <Electronically signed by David Rollins MD in OV> 11/17/24 1115 DD/ 1039 TD/TT: 11/17/24 1101 Pinmaker: Glucose, Whole Blood Reviewed date:11/18/2024 12:32:38 PM Interpretation: Performing Lab:[facility], [address] [place] [phone] Notes/Report: Glucose, Whole Blood 119 60-115 mg/dL METER # : [id number] Glucose, Whole Blood Reviewed date:11/18/2024 12:29:58 PM Interpretation: Performing Lab:[facility], [address] [place] [phone] Notes/Report: Glucose, Whole Blood 161 60-115 mg/dL METER # : [id number] Complete Blood Count no Diff Reviewed date:11/19/2024 09:49:09 AM Interpretation:in a rehab Performing Lab:[facility], [address] [place] [phone] Notes/Report: White Blood Count 2.7 4.8-10.8 X10*3/uL Red Blood Count 4.22 4.60-5.80 X10*6/uL Hemoglobin 12.4 14.0-18.0 g/dl Hematocrit 36.2 42.0-52.0 % Mean Corpuscular Volume 85.8 80.0-98.0 fL Mean Corpuscular Hemoglobin 29.4 27.0-33.0 pg Mean Corpuscular HGB Conc 34.3 31.0-36.0 g/dl Red Cell Distribution Width 14.3 11.0-16.0 % Platelet Count 97 160-400 X10*3/uL Mean Platelet Volume 11.3 9.4-12.4 fL NRBC Pct Auto 0.0 0.0-0.2 /100WBC NRBC Abs Auto 0.000 0.0-0.012 X10*3/uL Basic Metabolic Panel Reviewed date:11/18/2024 12:25:00 PM Interpretation: Performing Lab:[facility], [address] [place] [phone] Notes/Report: Sodium 138 135-145 mmol/L Potassium 3.5 3.3-5.1 mmol/L Chloride 105 96-108 mmol/L Carbon Dioxide 24 22-29 mmol/L Anion Gap 13 12-20 Blood Urea Nitrogen 15 9-16 mg/dL Creatinine 0.70 0.5-1.4 mg/dL Creatinine Clr Calc Pharmacy 113.2 eGFR (calculated from the MDRD study equation) and eCrCl (calculated from the Cockcroft-Gault equation) are based on different parameters and may not yield comparable results. If eCrCl result is absurd, please check patient's height/weight. Estimated Glomerular Filt Rate > 60 Chronic Kidney Disease: Estimated GFR < 60 mL/min/1.73m2 Severe Kidney Disease: Estimated GFR < 15 mL/min/1.73m2 Glucose Random 99 60-115 mg/dL Calcium 8.6 8.4-10.2 mg/dL Glucose, Whole Blood Reviewed date:11/18/2024 12:27:34 PM Interpretation: Performing Lab:[facility], [address] [place] [phone] Notes/Report: Glucose, Whole Blood 103 60-115 mg/dL METER # : [id number] Glucose, Whole Blood Reviewed date:11/18/2024 12:15:31 PM Interpretation: Performing Lab:[facility], [address] [place] [phone] Notes/Report: Glucose, Whole Blood 167 60-115 mg/dL METER # : [id number] Glucose, Whole Blood Reviewed date:11/19/2024 09:49:09 AM Interpretation: Performing Lab:[facility], [address] [place] [phone] Notes/Report: Glucose, Whole Blood 152 60-115 mg/dL METER # : [id number] Glucose, Whole Blood Reviewed date:11/19/2024 09:49:09 AM Interpretation: Performing Lab:[facility], [address] [place] [phone] Notes/Report: Glucose, Whole Blood 112 60-115 mg/dL METER # : [id number] Complete Blood Count Auto Di ff Reviewed date:11/19/2024 09:49:08 AM Interpretation: Performing Lab:[facility], [address] [place] [phone] Notes/Report: White Blood Count 2.9 4.8-10.8 X10*3/uL Red Blood Count 4.17 4.60-5.80 X10*6/uL Hemoglobin 12.0 14.0-18.0 g/dl Hematocrit 36.1 42.0-52.0 % Mean Corpuscular Volume 86.6 80.0-98.0 fL Mean Corpuscular Hemoglobin 28.8 27.0-33.0 pg Mean Corpuscular HGB Conc 33.2 31.0-36.0 g/dl Red Cell Distribution Width 14.0 11.0-16.0 % Platelet Count 101 160-400 X10*3/uL Mean Platelet Volume 11.1 9.4-12.4 fL Neutrophils Percent Auto 53.7 45-73 % Imm Gran Pct Auto 0.3 0.0-0.4 % Lymphocytes Percent Auto 35.3 20-40 % Monocytes Percent Auto 8.3 2-11 % Eosinophils Percent Auto 1.4 0-4 % Basophils Percent Auto 1.0 0-2 % NRBC Pct Auto 0.0 0.0-0.2 /100WBC Neutrophils Absolute Auto 1.6 2.0-8.3 x10*3/uL Imm Gran Abs Auto 0.01 0.00-0.03 X10*3/uL Lymphocytes Absolute Auto 1.0 1.2-4.9 X10*3/uL Monocytes Absolute Auto 0.2 0.1-1.2 X10*3/uL Eosinophils Absolute Auto 0.0 0.0-0.4 X10*3/uL Basophils Absolute Auto 0.0 0.0-0.2 X10*3/uL NRBC Abs Auto 0.000 0.0-0.012 X10*3/uL Basic Metabolic Panel Reviewed date:11/19/2024 09:49:09 AM Interpretation: Performing Lab:[address] [address] Notes/Report: Sodium 136 135-145 mmol/L Potassium 3.4 3.3-5.1 mmol/L Chloride 105 96-108 mmol/L Carbon Dioxide 23 22-29 mmol/L Anion Gap 11 12-20 Blood Urea Nitrogen 13 9-16 mg/dL Creatinine 0.72 0.5-1.4 mg/dL Creatinine Clr Calc Pharmacy 110.0 eGFR (calculated from the MDRD study equation) and eCrCl (calculated from the Cockcroft-Gault equation) are based on different parameters and may not yield comparable results. If eCrCl result is absurd, please check patient's height/weight. Estimated Glomerular Filt Rate > 60 Chronic Kidney Disease: Estimated GFR < 60 mL/min/1.73m2 Severe Kidney Disease: Estimated GFR < 15 mL/min/1.73m2 Glucose Random 91 60-115 mg/dL Calcium 8.4 8.4-10.2 mg/dL Glucose, Whole Blood Reviewed date:11/19/2024 09:49:09 AM Interpretation: Performing Lab:[address] [address] Notes/Report: Glucose, Whole Blood 92 60-115 mg/dL METER # : [id number] Glucose, Whole Blood Reviewed date:11/19/2024 12:22:53 PM Interpretation: Performing Lab:[address] [address] Notes/Report: Glucose, Whole Blood 98 60-115 mg/dL METER # : [id number] Glucose, Whole Blood Reviewed date:11/20/2024 06:17:31 PM Interpretation: Performing Lab:[address] [address] Notes/Report: Glucose, Whole Blood 150 60-115 mg/dL METER # : [id number] Glucose, Whole Blood Reviewed date:11/20/2024 06:17:46 PM Interpretation: Performing Lab:[address] [place] [address] Notes/Report: Glucose, Whole Blood 180 60-115 mg/dL METER # : [id number] Glucose, Whole Blood Reviewed date:11/20/2024 06:17:46 PM Interpretation: Performing Lab:[facility], [address] [place] [phone] Notes/Report: Glucose, Whole Blood 84 60-115 mg/dL METER # : [id number] Glucose, Whole Blood Reviewed date:11/20/2024 06:17:46 PM Interpretation: Performing Lab:[facility], [address] [place] [phone] Notes/Report: Glucose, Whole Blood 134 60-115 mg/dL METER # : [id number] Reason For Referral Reason needs sleep study Diagnosis 1 Somnolence (R40.0) Referral Organization [facility] Burks MD Referring Provider First Name Gopi Referring Provider Last Name Kimmie Referring Provider Speciality Internal edicine Referred Provider NADIA ARREDONDO Referred Provider Specialty Sleep Medici ne General Notes Sandra Jerry 0 12/24/2024 10:52:37 AM >info faxedClaritza Annette 12/31/2024 02:20:19 PM >left message for office to call me, Sandra Jerry 01/07/2025 11:53:54 AM >spoke with patient's she [...] Last Name Kimmie Referring Provider Speciality Internal edicine Referred Provider David Rodríguez Referred Provider Specialty Gastroentero logy General Notes Sandra Jerry 0 12/24/2024 10:53:07 AM >info faxedClaritza Annette 12/31/2024 02:06:11 PM Spoke with office they [...] Referral Priority Routine Referral Appointment Date 04/13/2025 Medications Medication SIG (Take, Route, Frequency, Duration) Notes Start Date End Date Status HYDROcodone-Acetaminophen 5-325 MG 1 tablet as needed Orally every 8 hours as needed for 14 days 09/07/2024 Active Lisinopril 20 MG TAKE 1 TABLET BY MECCA TH EVERY DAY for 90 Active Aspirin 81 81 MG 1 tablet Orally Once a day Active HYDROmorphone HCl 2 MG 1 tablet as neede d Orally every 6 hrs Not-Taking Pen [place] 5/16 31G X 8 MM as directed [...] 90 days Active Basaglar KwikPen 100 UNIT/ML INJECT 22 UNITS EVERY MORNING AND 20 UNITS EVERY EVENING SUBCUTANEOUS for 26 Active Celecoxib 200 MG 1 capsule with food Orally Once a day as needed for 30 day(s) 10/28/2022 Not-Taking Centrum Silver 50+Men - as directed Orally Active Metoprolol Succinate ER 50 MG 3 tabs once a day Orally Once a day for 90 days Active amLODIPine Besylate 5 MG TAKE 1 TABLET B Y MOUTH EVERY DAY for 90 Active Immunizations Vaccine Route Administration Date Status Comme nts SARS-COV-2 Moderna Unknown 11/17/2020 Administered SARS-COV-2 Moderna Unknown 12/15/2020 Administered Influenza High Dose IM Intramuscular 05/22/2021 Administer ed SARS-COV-2 Moderna Unknown 08/10/2021 Administered Influenza High Dose IM Intramuscular 06/17/2022 Administer ed Influenza High Dose IM Intramuscular 06/19/2023 Administer ed Influenza High Dose IM Intramuscular 06/18/2024 Administer ed Social History Tobacco Use: Social History Observation [...] ast year? 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1) Active confirmed Problem 96072374 Hypercholesterol emia (E78.00) Active confirmed Problem History of coronary artery bypass grafting (153558932) History of coronary artery bypass graft x 3 (Z95.1) Active confirmed Problem 762639439 Cardiac pacemake r (Z95.0) Active confirmed Problem 064484157 Obesity, morbid (more than 100 lbs over ideal weight or BMI > 40) (E66.01) Active confirmed Problem Occlusion and stenosis of multiple and bilateral cerebral arteries (138408435) Carotid stenosis, bilateral (I65.23) Active confirmed Vital Signs Blood pressure diastolic 64 mm Hg 01/31/2025 [place] ght is down 8 pounds since 12-16-24 Height 66 in 05/05/2025 Blood pressure systolic 90 mm Hg 01/31/2025 weig ht is down 8 pounds since 12-16-24 Weight 230 lbs 01/31/2025 weight is down 8 pounds since 12-16-24 BMI 37.12 kg/m2 01/31/2025 weight is down 8 pounds since 12-16-24 Encounters Encounter Location Date Provider Diagnosis Gopi Burks MD [address] [place] [address] [id number] 12/16/2024 Gopi Burks Type 2 diabetes jose itus with unspecified diabetic retinopathy with macular edema E11.311 ; COVID-19 U07.1 ; Somnolence R40.0 and Fecal incontinence R15.9 Gopi Burks MD [address] [place] [address] [id number] 01/31/2025 Gopi Burks Type 2 diabetes jose itus with unspecified diabetic retinopathy with macular edema E11.311 ; Somnolence R40.0 and Confusion R41.0 Gopi Burks MD [address] [place] [address] [id number] 05/05/2025 Gopi Burks Type 2 diabetes jose itus with unspecified diabetic retinopathy with macular edema E11.311 ; Somnolence R40.0 and Dementia F03.90 Gopi Burks MD [address] [place] [address] [id number] 09/06/2024 Gopi Burks MD [address] [place] [address] [id number] 11/23/2024 Gopi Burks MD [address] [place] [address] [id number] 12/14/2024 Gopi Burks MD [address] [place] [address] [id number] 01/14/2025 Gopi Burks MD [address] [place] [address] [id number] 02/25/2025 Gopi Burks Hypercholesterolemia E78.00 and 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 E11.311 Gopi Burks MD [address] [place] [address] [id number] 06/27/2025 Gopi Burks Assessments Encounter Date Diagnosis (ICD Code) Assessment Notes Treatment Notes Treatment Clinical Notes Section Notes 12/16/2024 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 (ICD-10 - E11.311) doing better, will continue current regiment 12/16/2024 COVID-19 (ICD-10 - U07.1) has recoverded 01/31/2025 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 says he doesn't believe in them 05/05/2025 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 (ICD-10 - E11.311) sugars a little low today but didn't eat since last night 05/05/2025 Somnolence (ICD-10 - R40.0) 02/25/2025 Hypercholesterolemia (ICD-10 - E78.00) 12/16/2024 Somnolence (ICD-10 - R40.0) needs sleep study 01/31/2025 Confusion (ICD-10 - R41.0) complains that he is confused and he agrees. she is frustrated as he is unwilling to do any testing that he need and she is washing her hands of trying to get him to move. he spends the entire day in a recliner or bed and states that he is old. 05/05/2025 Dementia (ICD-10 - F03.90) refuses evaluiation 02/25/2025 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 (ICD-10 - E11.311) 12/16/2024 Fecal incontinence (ICD-10 - R15.9) referral back to dr rodríguez 01/31/2025 Other refuses sleep study and colonoscopy Plan Of Treatment Pending Test Test Name Order Date CT CHEST NO CONTRAST 01/24/2022 MRI LUMBAR SPINE NO CONTRAST 04/13/2021 ECG 12 lead EKG 12/11/2021 CT chest wo con 01/01/2022 Next Appt Details Provider Name:Gopi ruiz, 11/04/2025 10:45:00 AM, [address] [place] [address], [address], [place], [place], [id number], Insurance Providers Payer Name Payer Address Payer Phone Subscriber Number Group Number Insured Name Patient Relationship to Insured Coverage Start Date Coverage End Date MEDICARE [address] [place] [address] [id number] Wayne Singh Self - patient is the [address] [place] [phone] [id number] Wayne Singh Self - patient is the insured Medical (General) History Medical History History ICD Code colonoscopy 2015. told he doesn't need a ny further
--- OUTSIDE RECORDS SUMMARY | 2025-08-26 21:12 | XMS_ITS | Data Portability ---
Author Organization [place] - [facility] Address [address] [place] [id number] Care Team Providers Care Director Manufacturing Engineering Name Role Phone DONNA PEBBLES Primary Care Provider [phone] [facility] OTHER [phone] Assessment Encounter Date Assessment Date Assessment LastModified by Organization Details LastModified Time 01/30/2022 01/30/2022 Overview/History : 72 yo m with a PMH of DM, HTN, CAD, GERD call from [facility] in this AM who found blood pressure 92 systolic and HR 110. - Recently lisinopril reduced to 20 mg from 40 mg and daughter thinks he may have mixed up his medication and taken the higher dose. Patient has no complaints. - Has chronic diarrhea that is treated with imodium but ran out x 2 days and did have a few episodes of diarrhea. - No sick contacts. Exam: General Appearance: non-toxic, well appearing, in no acute distress. Patient sitting in chair. Mental Status: active and alert, follows commands appropriately Head: normocephalic, atraumatic Eyes: PERRLA, EOMI, no discharge, lids grossly normal without stye or swelling Mouth and Throat: moist mucous membranes, no hoarseness Pulmonary: normal effort, no respiratory distress, no tachypnea, no accessory muscle use, lungs sound clear to auscultation bilaterally Cardiovascular: RRR, normal S1, normal S2, no murmurs, no rubs, no gallops Gastrointestinal : no abdominal distention, normal bowels sounds, no tenderness to palpation, no rigidity, no pulsatile mass Musculoskeletal: moves all extremities normally, no extremity swelling, AROM WNL, full and equal strength throughout Psychologic: normal mood, normal affect, normal insight, normal cognition Skin: no rash, no lesions, no swelling, no erythema Vital Signs: T 98 HR 91 BP 100/52 RR 16 SpO2 93% RA DDx considered, but not limited to: low blood pressure episode, viral illness, medication side effect This is a 72 yo m who was seen by [facility] today who reported an episode of low blood pressure of 92 systolic and elevated HR of 112. She also reported the patient has diarrhea. The patient is well appearing on assessment and VS are stable with BP soft but within normal limits. After an extensive conversation with the patient, spouse and daughter he may have taken the higher dose of lisinopril. He had been cutting the 40 mg tablets in half and states some of his pills got mixed up. Daughter is planning to sort his medication in the daily dispensers. He has filled lisinopril 20 mg prescription so there will be a lower chance for confusion of medication. He did have a few episodes of diarrhea he and family state is not a new and typically uses imodium with good effect. He ran out of imodium a couple of days ago but has restarted it today. Will test for COVID-19 as diarrhea may be related and have patient follow up with PCP tomorrow regarding medication regimen. Work up/Results: COVID-19 PCR-pending Rapid COVID -negative Plan/Discussion: Results discussed with patient Patient advised to increase fluids other than soda Patient advised when results of COVID-PCR have resulted a provider will call to discuss. Advised patient if any new or worsening of symptoms please contact for re-evaluation or be evaluated in the emergency department The patient is advised to make an appt with PCP in 2-3 days to discuss ongoing symptoms/ further management. The patient is also advised to go to the ED immediately for any worsening symptoms. The patient understood and agreed with this plan. The patient was given discharge instructions and all questions were answered prior to DH team departure. In order to obtain further information and compare any laboratory results/values, I have accessed patient records on the [facility]. This information was pertinent in my medical decision making today. Proper Personal Protective Equipment (PPE), including gloves, eye protection and masks were donned and doffed appropriately and all equipment cleaned using approved technique with germicidal disposable wipes prior to and after care of this patient according to [facility] infection prevention protocols. [email or web address] Not available 01/30/2022 16:47:38 Plan of Treatment Reminders Order Date Submit Date Provider Last Modified By Organization Details Last Modified Time Details Appointments None recorded. Lab rapid SARS CoV 2 Ag, QL IA, respiratory specimen 2021 022 lnovia [facility], [address], [place], [address], 16:48:09 unlisted lab - covid-19 (novel coronavirus ) PCR 2021 022 ZEL[facility] [facility] (Centralized Electronic Ordering - All Locations), Patient Can Go To The Location Of Their Choice, [id number] 13:20:35 Referral None recorded. Procedures None recorded. Surgeries None recorded. Imaging None recorded. Medication Orders None recorded. Patient TargetsNo targets recorded. Patient Instructions Encounter Date Encounter Id Patient Instructions Last Modified By Organization Details Last Modified Time 01/30/2022 [id number] Thank you for yo ur visit with [facility] today. We cannot always find the exact cause of your symptoms during your initial visit. Please follow up with your primary care provider or specialist within 24-48 hours to be rechecked or seek medical attention if your symptoms do not go away or get worse. If you develop any new or worsening symptoms and need after hours care, please go to nearest ER and/or call 911. If you have additional concerns or develop a change in your condition between 8am-10pm, please call [facility] at [phone] to help navigate your care. [email or web address] Not available 01/30/2022 16:47:08 Reason for Referral None Reported. Results Created Date Observation Date Name Description Value Unit Range Abnormal Flag Note LastModifiedBy Organization Detail LastModifiedTime 01/31/20 22 01/31/2022 COVID -19 (NOVE L CORON AVIRU S) PCR covid-19 PCR result (neg) NEGAT PIYUSH 2019- novel Coron aviru s (2019 -nCoV ) not detec christopher by [facility] Ana Paula. Note: If clini sj suspi cion for COVID -19 is high, varsha nue to maint ain preca ution s and consi beto repea t testi ng. Resul t repor christopher to the [facility]. All test resul ts must be corre lated with clini sj findi ngs. This test has been autho rized by the FDA under an Emerg ency Use Autho rizat ion (EUA) for use by autho rized labor atori es. Testi ng perfo rmed on the Holog ic Panth er Aptim a assay utili zing trans cript ion-m ediat ed ampli ficat ion (TMA) . Not Available [facility] (Centralized Electronic Ordering - All Locations) Patient Can Go To The Location Of Their Choice, [id number] 01/31/2022 13:20:35 01/31/20 22 01/31/2022 COVID -19 (NOVE L CORON AVIRU S) PCR covid-19 PCR specimen source NASAL Not Available [facility] (Centralized Electronic Ordering - All Locations) Patient Can Go To The Location Of Their Choice, [id number] 01/31/2022 13:20:35 01/31/20 22 01/30/2022 rapid SARS CoV 2 Ag, QL IA, respi rator y speci men Covid-19 (ref: neg) negati ve Not Available [facility] [address] [place], [address], 01/30/2022 16:01:36 01/31/20 22 01/30/2022 rapid SARS CoV 2 Ag, QL IA, respi rator y speci men Control Visual ized/V alid Not Available [facility] [address] [place] [address], [id number], 01/30/2022 16:01:36 01/31/20 22 01/30/2022 rapid SARS CoV 2 Ag, QL IA, respi rator y speci men Location [facility], [facility], [address] [place] [address], [id number] Not Available [facility] [address] [place], [address], 01/30/2022 16:01:36 Result Notes None recorded. Procedures Surgical History Date Name Laterality Status Provider Name and Address Organization Details Recorded Time cardiac pacemaker procedure completed Brenda Banks NP [address] [facility], [place], [address], [place] [facility] 01/30/2022 14:51:41 coronary artery bypass grafts x 3 completed Brenda Banks NP [address], [place], [address], [place] [facility] 01/30/2022 14:51:51 operative procedure on spinal structure completed Brenda Banks NP [address], [place], [address], [place] [facility] 01/30/2022 14:55:43 Imaging Results None recorded. Procedure Notes None recorded. Medical Equipment Implant [employer] Serial Number Lot Number Status Provider Name and Address Organization Details Recorded Time Cardiac pacemaker FDA Y Brenda Banks NP [address], [place], [address] , [place] [facility] 01/30/2022 14:54:15 Allergies Allergen ID Allergen Name Allergen Category Reaction Reaction Severity Criticality Documentation Date Start Date Code Code System Note Provider Name and Address Organization Details Recorded Time 321066 erythromy arley medicatio n Not available Not available Not available 01/30/2022 4053 RxNorm Brenda Banks, ACUTE CARE ASSISTANT [address], [place], [address], [place] [facility] 14:40:02 [id number] acetamino phen / hydrocodo ne medicatio n Not available Not available Not available 01/30/2022 35081 2 RxNorm Brenda Banks, ACUTE CARE ASSISTANT [address], [place], [address], [place] [facility] 14:40:17 [id number] gabapenti n medicatio n Not available Not available Not available 01/30/2022 85596 RxNorm Brenda Banks, ACUTE CARE ASSISTANT [address], [place], [address], [place] [facility] 15:35:37 890676 omeprazol e medicatio n Not available Not available Not available 01/30/2022 7646 RxNorm Brenda Banks, ACUTE CARE ASSISTANT [address], [place], [address], [place] [facility] 15:35:46 Medications Name Sig Start Date Stop Date Status Note LastModified by Organization Details LastModified Time atorvastati n 40 mg tablet TAKE 1 TABLET BY MOUTH DAILY active Not Available Not Available No t Available metoprolol succinate ER 50 mg tablet,exte nded release 24 hr TAKE 3 TABLETS BY MOUTH DAILY active Not Available Not Available No t Available lisinopril 20 mg tablet TAKE 1 TABLET BY MOUTH EVERY DAY active Not Available Not Available No t Available sertraline 100 mg tablet TAKE 1 TABLET BY MOUTH DAILY active Not Available Not Available No t Available acetaminoph en 300 mg-codeine 30 mg tablet TAKE 1 TABLET BY MOUTH EVERY 6 HOURS FOR UP TO 7 DAYS NEEDED FOR PAIN active Not Available Not Available No t Available amlodipine 5 mg tablet TAKE 1 TABLET BY MOUTH EVERY DAY active Not Available Not Available No t Available hydromorpho ne 2 mg tablet TAKE 1 TO 2 TABLETS BY MOUTH EVERY 8 TO 12 HOURS NEEDED FOR SEVERE PAIN 01/30 completed Not Available Not Available Not Available furosemide 20 mg tablet TAKE 1 TABLET BY MOUTH EVERY DAY active Not Available Not Available No t Available lisinopril 40 mg tablet TAKE 1 TABLET BY MOUTH EVERY DAY 01/30 completed Not Available Not Available Not Available amoxicillin 875 mg-potassiu m clavulanate 125 mg tablet TAKE 1 TABLET BY MOUTH EVERY 12 HOURS FOR 10 DAYS 01/30 completed Not Available Not Available Not Available Imodium A-D active Not Available Not A vailable Not Available docusate calcium active Not Available Not Available Not Available [place] 3 active Not Available Not Avail able Not Available multivitami n active Not Available Not Available Not Available Levemir FlexTouch U-100 Insulin 100 unit/mL (3 mL) subcutaneou s pen INJECT 45 UNITS SUBCUTANE OUSLY EVERY MORNING AND 38 UNITS SUBCUTANE OUSLY EVERY NIGHT DIRECTED FOR 30 DAYS active Not Available Not Available No t Available Trulicity 1.5 mg/0.5 mL subcutaneou s pen injector INJECT 1.5MG SUBCUTANE OUSLY ONCE WEEKLY active Not Available Not Available No t Available aspirin 81 mg capsule Take 1 capsule every day by oral route. active Not Available Not Available No t Available Vitals Date Recorded Heart rate Systolic And Diastolic Provider Name and Address Organization Details Last Updated DateTime 01/30/2022 91 /min 100/52 mm[Hg] Brenda Banks, ACUTE CARE ASSISTANT [address], [place], [address], [place] [facility] 01/30/2022 16:22:40 Date Recorded Respiratory rate Body temperature Oxygen saturation Provider Name and Address Organization Details Last Updated DateTime 01/30/2022 16 /min 98 [degF] 93 % Not Available [facility] 01/30/2022 15:13:19 Social History Question Answer Notes LastModified by Organizat ion Details LastModified Time Tobacco Smoking Status Never Smoker Brenda Banks NP [address], [place], [address], [place] [facility] 01/30/2022 14:50:48 Do You Have An Advance Directive? No Information not available 01/30/2022 Within The Past 12 Months, Has It Happened That The Food You Bought Just Didn't Last And You Didn't Have Money To Get More. No Information not available 01/30/2022 Within The Past 12 Months, Have You Worried That Your Food Would Run Out Before You Got Money To Buy More. No Information not available 01/30/2022 Fall Risk: Do You Feel Unsteady When Standing Or Walking? Yes Uses A Cane Information not available 01/30/2022 We Know That How And When People Interact With Friends And Family Can Be Very Different From Person To Person. How Often Do You Have The Opportunity To See Or Talk To People That You Care About And Feel Close To? (Ex: Talking To Friends On The Phone Or Visiting Friends Or Family Or Going To Druze Or Club Meetings) 3 Or 4 Times Per Week Information not available 01/30/2022 Excessive Alcohol Or Drug Use No Information not available 01/30/2022 Does This Patient Have A PCP? Yes Information not available 01/30/2022 Has The Patient Seen Their PCP In The Past 6 Months? Yes Information not available 01/30/2022 Is This Patient In Hospice? No Information not available 01/30/2022 We Know From Many Of Our Patients That Covering All Of Their Costs Can Be Difficult At Times. This Can Cause Stress And Impact Health. In The Past Year, Have You Been Unable To Get Any Of The Following When It Was Really Needed? No Information not available 01/30/2022 What Is Your Housing Situation Today? I Have Housing Information not available 01/30/2022 Would You Like Help Connecting To Resources? None Information not available 01/30/2022 Sex: Unknown Functional Status Question Answer Note LastModified by Organizat ion Details LastModified Time Do you use any illicit or recreational drugs? No Information not available 01/30/2022 Do you or have you ever used any other forms of tobacco or nicotine? No Information not available 01/30/2022 What is your level of alcohol consumption? Occasional Information not available 01/30/2022 Mental Status None recorded. Family History Relationship Description Onset Age of this Age Resolved Age Notes LastModified by Organization Details LastModified Time Mother Heart disease lnovia Not available 2021 14:49:03 Mother Aneurysm lnovia Not available 0 01/30/2022 14:49:20 Father Heart disease lnovia Not available 2021 14:49:03 Father Diabetes mellitus lnovia Not available 2021 14:49:31 Father Dementia lnovia Not available 0 01/30/2022 14:49:47 Brother Transient cerebral ischemia lnovia Not available 2021 14:50:07 Brother Dementia lnovia Not available 01/30/2022 14:50:12 Medical History Condition Response Diabetes Y Hypertension Y Past Encounters Encounter ID Performer Location Encounter Start Date Encounter Closed Date Diagnosis/Indication Diagnosis SNOMED-CT Code Diagnosis ICD10 Code Diagnosis IMO Codes Diagnosis Note [id number] Brenda Banks NP [facility] [address] [facility] [place] [address] 01/30/2022 14:35:13 02/08/2022 14:00:47 Hypotensive episode 51515342 I95.9 Diarrhea 40555876 R19.7 Health Concerns Section Related Observation LastModified by Organization Detai ls LastModified Time None Recorded Concern Status LastModified by Organization Details LastModified Time None Recorded Advance Directives Directive N: Payers Insurance Date Sequence Insurance Name Policy Number Policy Vera Covered Member ID Vera Member ID Guarantor Name 02/12/2022 2 [facility] - PLAN 1 (MEDICARE SUPPLEMENT) [id number] Wayne Singh [id number] Wayne Singh 01/30/2022 1 *SELF PAY* Wayne Singh [id number] Wayne Singh 02/12/2022 1 MEDICARE B-[place]: [facility] Wayne Singh [id number] Wayne Singh Notes Date Note Type Note Provider Name and Address Organization Details Recorded Time 01/30/2022 text/html 72 yo m with a PMH of DM, HTN, CAD, GERD call from [facility] in this AM who found blood pressure 92/to be low recent change in BP- Recently had lisinopril reduced from 40 mg to 20 mg daughter thinks he may have mixed up his medication and taken the higher dose. Patient has no complaints.- Has chronic diarrhea that is treated with imodium but ran out x 2 days and did have a few episodes of diarrhea. - No sick contacts. Brenda Banks NP [address], [place], [address], [place] [facility] 01/30/2022 16:51:32
--- NOTE | 2025-08-26 21:16 | ED_ITS ---
HPI - Abdominal Pain General Chief Complaint: Abdominal Pain Stated Complaint: low abd pain Time Seen by Provider: 08/26/25 21:15 Source: patient Mode of arrival: ambulatory Limitations: no limitations History of Present Illness ED Provider: David TROY HPI narrative: The patient is a 75-year-old male who presents to the ED accompanied by his daughter for evaluation of acute left lower quadrant abdominal pain that began this afternoon while he was watching television. Pain is located in the left lower abdomen. It is worsened by movement however is able to perform a straight leg raise without evidence of discomfort during interview. The patient denies associated fever/chills, vomiting, diarrhea, constipation, dysuria, hematuria, recent sick contacts, or recent trauma. Patient denies scrotal pain or swelling. The patient denies any surgical abdominal history. The patient's daughter is also present in the ED and reports multiple falls over the past year, increased over the past month. Patient's most recent fall was 2 days ago, on the morning of . Patient's family contacted EMS who performed a lift assist but patient refused transport to the emergency department. Related Data Home Medications ?Medication ?Instructions ?Recorded ?Confirmed aspirin 81 mg tablet,delayed 81 mg PO DAILY 06/21/20 0 11/17/24 release (Adult Low Dose Aspirin) lisinopril 20 mg tablet 20 mg PO DAILY 04/08/2210/30 Held on 11/20/24. Instructions: Monitor BP before restarting hydrocodone 5 mg-acetaminophen 325 1 tab PO Q8H PRN Pa in 11/17/24 11/17/24 mg tablet Previous Rx's ?Medication ?Instructions ?Recorded diabetic foot wear #1 ea 09/15/20 diabetic supplies, miscellan. #1 ea 09/15/20 furosemide 20 mg tablet 20 mg PO DAILY 30 days #30 t abs 12/14/20 amlodipine 5 mg tablet 5 mg PO DAILY #120 tabs 04/01 01/19 Held on 11/20/24. Instructions: Monitor BP before restarting sertraline 100 mg tablet 100 mg PO DAILY 90 days #90 tabs 08/11/22 cyclobenzaprine 5 mg tablet 5 mg PO TID PRN [place] sm #20 11/20/24 tabs insulin glargine 100 unit/mL (3 20 unit (0.2 mL) subcu t BEDTIME 11/20/24 mL) subcutaneous pen (Lantus #15 mL Solostar U-100 Insulin) insulin glargine 100 unit/mL (3 22 unit (0.22 mL) subc ut DAILY #15 11/20/24 mL) subcutaneous pen (Lantus mL Solostar U-100 Insulin) metoprolol succinate 50 mg 50 mg PO DAILY #270 tabs tablet,extended release 24 hr atorvastatin 40 mg tablet 40 mg PO DAILY #90 tabs 12/31 04/25 tamsulosin 0.4 mg capsule 0.4 mg PO DAILY #7 caps 08/02 03/25 tamsulosin 0.4 mg capsule 0.4 mg PO DAILY #7 caps 08/02 03/25 Allergies Allergy/AdvReac Type Severity Reaction Status Date / Time gabapentin Allergy Unknown Unknown Verified 08/26/25 20:23 ibuprofen AdvReac Mild GI upset Verified 08/26/25 20:23 omeprazole AdvReac Mild GI upset Verified 08/26/25 20:23 erythromycin base AdvReac Unknown GI PROBLEMS Verified 08/26/25 20:23 (ERYTHROMYCIN BASE) hydrocodone (From Vicodin) AdvReac Unknown GI upset, Verified 08/26/25 20:23 dizziness, vomiting Review of Systems Review of Systems Yes all other systems are reviewed and are negative [facility] Past Medical History Medical History Diabetic neuropathy Hyperlipidemia Normal colonoscopy DM type 2 (diabetes mellitus, type 2) Type 2 diabetes mellitus with unspecified complications Pulmonary hypertension Left bundle branch block Heart failure with preserved ejection fraction Non-rheumatic aortic stenosis Atherosclerotic cardiovascular disease Gallstones CHF (congestive heart failure) Cardiomyopathy Pacemaker Morbid obesity HTN (hypertension), benign Reflux gastritis Lumbar back pain Surgical History History of coronary artery bypass graft x 3 History of permanent cardiac pacemaker placement (~04/12/20) Family History Family History Father Diabetes Mother Cardiovascular disease Social History Social History Household Members: Spouse and Children Housing: Homeless Do you presently have visiting nurse or other home services: No Alcohol intake: never Comment: chair alarm on bed Patient Tobacco Use Status: Never used Tobacco e-Cigarette/Vaping Use: Never Used Second Hand Smoke Exposure: No Advance Directives Date on File: 11/15/24 service: No Physical Exam ED Vital Signs: Vital Signs - 24 hr 08/26/25 20:20 08/27/25 03:13 08/27/25 03:14 Temperature 98.4 F 98.7 F 98.7 F Pulse Rate 73 104 H 104 H Respiratory Rate 20 18 18 Blood Pressure 178/69 H 156/72 H 156/72 H Pulse Oximetry 99 97 97 Oxygen Delivery Method Room Air BMI result Body Mass Index 32.2 CONSTITUTIONAL: The patient appears non-toxic, well nourished and in no acute distress. Vital signs as documented. HEAD: Atraumatic, normocephalic. EYES: EOMs grossly intact, pupils equal, conjunctiva clear, no exudate. ENT: Nares patent, no discharge. Airway patent, no audible stridor, visible mucosa is pink and moist without noted lesions. NECK: Trachea is midline, no obvious masses or gross abnormalities. CHEST: Symmetric movement, normal appearance. LUNGS: LS present and CTAB, no w/r/r. Non-labored work of breathing. CARDIAC: Regular Rhythm, S1/S2 appreciated, no murmurs, rubs or gallops. ABDOMEN: Abdomen soft x4 quadrants, positive tenderness to palpation of the left lower quadrant, equivocal rebound, no palpable masses or organomegaly. : Deferred. EXTREMITIES: Normal tone, moves all extremities spontaneously without reported pain. No obvious acute injury or deformity noted. NEURO: Alert and oriented x3, CN II-XII appear grossly intact. Cerebellar Functioning grossly intact. No obvious sensory or motor deficits. Speech clear and appropriate. PSYCH: normal affect, appropriate eye contact, fluid speech, with appropriate response to questioning. No reported suicidality or homicidality. SKIN: Warm, dry, color appropriate, normal turgor. No rashes noted. Medical Decision Making Medical Decision Making MDM Narrative: 10:46 PM 08/26/2025 (Ami TROY): The patient is a 75-year-old male who presents to the ED accompanied by his daughter for evaluation of acute left lower quadrant abdominal pain that began this afternoon while he was watching television. Pain is located in the left lower abdomen. It is worsened by movement however is able to perform a straight leg raise without evidence of discomfort during interview. The patient denies associated fever/chills, vomiting, diarrhea, constipation, dysuria, hematuria, recent sick contacts, or recent trauma. Patient denies scrotal pain or swelling. The patient denies any surgical abdominal history. The patient's daughter is also present in the ED and reports multiple falls over the past year, increased over the past month. Patient's most recent fall was 2 days ago, on the morning of . Patient's family contacted EMS who performed a lift assist but patient refused transport to the emergency department. On exam patient has point tenderness in the left lower quadrant, with a equivocal rebound. No other acute findings. Laboratory evaluation shows no leukocytosis, anemia, electrolyte abnormality, or FEMI. The patient's LFTs are unremarkable. Patient's viral swabs are negative for influenza, COVID, and RSV. Patient will be sent for CT abdomen and pelvis to evaluate for diverticulitis versus other acute intra-abdominal pathology. Pending unremarkable CT the patient we will require ambulation trial, if patient has successfully completed ambulation trial we will discharge with outpatient PCP follow up for recurrent falls. If patient is unable to ambulate safely we will hold for PT/case management consultation in the morning. 1:14 AM 08/27/2025 (Ami TROY): The patient's CT shows evidence of a 5 mm stone in the proximal left ureter with hydronephrosis. Patient experienced an episode of vomiting with the increased pain. The patient will be treated with Toradol, Zofran, and IV fluid hydration. We will obtain urinalysis to ensure no infection. 2:48 AM 08/27/2025 (Ami TROY): The patient's urinalysis shows hematuria, no evidence of infection, the patient is able to ambulate with a steady gait. The patient will be discharged with anti-inflammatories and Flomax. Patient has been instructed to follow up with Urology if symptoms do not improve. Admission/Observation Consideration of admission/observation: Escalation of care including admission/observation considered Lab Data MDM Lab Attestation statement: I reviewed the patient's lab results. 08/26/25 20:49 08/26/25 20:49 Labs: Lab Results 08/26/25 08/27/25 Range/Units 20:49 01:12 WBC 9.0 (4.8-10.8) X10*3/uL RBC 5.19 D (4.60-5.80) X10*6/uL Hgb 15.0 D (14.0-18.0) g/dl Hct 46.0 D (42.0-52.0) % MCV 88.6 (80.0-98.0) fL MCH 28.9 (27.0-33.0) pg MCHC 32.6 (31.0-36.0) g/dl RDW 13.5 (11.0-16.0) % Plt Count 186 (160-400) X10*3/uL MPV 10.6 (9.4-12.4) fL Immature Gran % (Auto) 0.3 (0.0-0.4) % Neut % (Auto) 72.9 (45-73) % Lymph % (Auto) 18.7 L (20-40) % Scurry % (Auto) 5.1 (2-11) % Eos % (Auto) 1.7 (0-4) % Baso % (Auto) 1.3 (0-2) % Lymph # (Auto) 1.7 (1.2-4.9) X10*3/uL Scurry # (Auto) 0.5 (0.1-1.2) X10*3/uL Eos # (Auto) 0.2 (0.0-0.4) X10*3/uL Baso # (Auto) 0.1 (0.0-0.2) X10*3/uL Abs Immat Gran (auto) 0.03 (0.00-0.03) X10*3/uL Absolute Neuts (auto) 6.6 (2.0-8.3) x10*3/uL Absolute Nucleated RBC 0.000 (0.0-0.012) X10*3/uL Nucleated RBC % (auto) 0.0 (0.0-0.2) /100WBC Sodium 139 (135-145) mmol/L Potassium 3.8 (3.3-5.1) mmol/L Chloride 105 (96-108) mmol/L Carbon Dioxide 22 (22-29) mmol/L Anion Gap 16 (12-20) BUN 13 (9-16) mg/dL Creatinine 0.92 (0.5-1.4) mg/dL Estim Creat Clear Calc 76.8 Estimated GFR > 60 Random Glucose 153 H (60-115) mg/dL Calcium 9.9 D (8.4-10.2) mg/dL Magnesium 1.9 (1.6-2.6) mg/dL Total Bilirubin 0.8 (0.0-1.0) mg/dL AST 36 (5-37) U/L ALT 25 (0-40) U/L Alkaline Phosphatase 92 (39-117) U/L Troponin I High Sens 32.2 (<3.5-35.0) ng/L Total Protein 8.0 (6.5-8.0) g/dL Albumin 4.3 (3.5-5.0) g/dL Urine Color Yellow Urine Appearance Cloudy Urine pH 5.0 (5.0-9.0) Ur Specific Amelia 1.020 (1.005-1.025) Urine Protein 100 (2+) H (Neg-Trace) mg/dL Urine Glucose (UA) Negative (Negative) mg/dL Urine Ketones Trace (Negative) mg/dL Urine Blood Large (3+) H (Negative) Urine Nitrite Negative (Negative) Ur Leukocyte Esterase Trace H (Negative) Urine RBC 3-5 H (0-2) /HPF Urine WBC 0-5 (0-5) /HPF Ur Squamous Epith Cells 0-2 (0-2) /HPF Urine Bacteria None Seen (None Seen) Hyaline Casts 0-2 (0-2) /LPF Influenza Type A (PCR) NEGATIVE (Negative) Influenza Type B (PCR) NEGATIVE (Negative) RSV RNA Qual (PCR) NEGATIVE (Negative) SARS-CoV-2 RNA (RT-PCR) NEGATIVE (Negative) Radiology Impression Discussion of test interpretation with radiology: I have reviewed the radiologist's reading. Radiologist Impression: CT abdomen and pelvis with contrast Comparison: CT - CT ABDOMEN PELVIS W IV CON - 11/14/24 23:18 EDT Findings: Lung bases are clear. Heart size is normal. Extensive coronary artery calcifications present. Pacemaker leads in the right heart. Sternotomy wires are present. Spleen is mildly enlarged. Adrenal glands, liver are unremarkable. Mild atrophy of the pancreas. Layering stones within the gallbladder. No intra or extrahepatic biliary dilatation. There is a 10 mm non-obstructing stone within the right kidney. No right-sided hydronephrosis. No right ureteral stone. There is ahrz-[id number] left hydronephrosis with a delayed left nephrogram and asymmetric stranding around the left kidney. Within the proximal left ureter there is 5 mm stone. Distal left ureter is decompressed. No bowel obstruction, pneumoperitoneum, or pneumatosis. There are a few colonic diverticula but no evidence of diverticulitis. No ascites. Bilateral fat containing inguinal hernias present. Previous posterior L3-4 transpedicular fusion with interbody cage. Diffuse idiopathic skeletal hyperostosis of the thoracic spine. Abdominal aorta is normal caliber. Extensive calcification of the splenic artery. IMPRESSION: Cqah-[id number]-[id number] left hydronephrosis secondary to 5 mm stone in the proximal left ureter. This document has been electronically signed by: Matt Mosher MD on 08/27/2025 00:38:57 External Record Review External record reviewed: Outpatient record and Prior outpatient labs Medications Administered Discontinued Medications Generic Name Dose Route Start Last Admin Trade Name Freq PRN Reason Stop Dose Admin Sodium Chloride 1,000 mls @ 999 mls/hr 08/27/25 01:15 08/27/25 01:23 Ns IV 08/27/25 02:15 999 mls/hr .Q1H1M ALEXI Administration Iohexol 85 ml 08/26/25 23:34 08/26/25 23:42 Iohexol 350 Mg/Ml 100 Ml Infus..Btl IV 08/26/25 23:35 85 ml ONCE ONE Administration Ketorolac Tromethamine 15 mg 08/27/25 01:10 08/27/25 01:21 Ketorolac Tromethamine 15 Mg/Ml Vial IVPUSH 08/27/25 01:11 15 mg ONCE ONE Administration Ondansetron HCl 4 mg 08/27/25 01:10 08/27/25 01:21 Ondansetron Hcl 4 Mg/2 Ml Vial IVPUSH 08/27/25 01:11 4 mg ONCE ONE Administration Discharge Plan Discharge Clinical Impression: Kidney stone on left side Patient Disposition: Home, Self-Care Instructions: Kidney Stones (ED), Hydronephrosis (ED) Additional Instructions: Thank you for choosing [facility]'s Emergency Department for your care today. Thankfully your CT of your abdomen today shows no evidence of an infectious process requiring antibiotics or surgical intervention. It does show evidence of a kidney stone on the left side with some dilation of your ureter and kidney before the stone. Thankfully your urinalysis shows no evidence of a infection of your urine, and as such there is no indication for admission to the hospital or continued ED observation, and it is safe to discharge you home. Your symptoms should begin to improve as the stone passes through your ureter and into your bladder. Please take Flomax as directed to help advance the stone through your urinary tract. This will decrease the duration of time you experience symptoms. Please strain your urine to observe for passage of the stone. After the stone has passed you may discontinue taking Flomax. You should take alternating (staggered) doses of ibuprofen 600mg and Tylenol 1000mg every 4 hours as needed for any additional pain. Please stay well hydrated and get plenty of rest. Please follow up with your primary care physician for re-evaluation, additional management of your symptoms, and continued preventative care. If your symptoms do not improve or you do not witness passing of the stone in the next 3-5 days, please call the urology clinic at the number provided to schedule a follow up appointment. If you do not have a primary care physician, please call the [facility] at [phone] to establish a new primary care physician. While waiting to establish your new primary care physician, you can call our Walk-in Care Clinic at [phone] for non-emergency needs. Please return to the emergency department if you develop a severe or sudden change in your symptoms, a fever over 100.4 that does not improve with Tylenol or Ibuprofen, recurrent vomiting, or any other new or worsening symptoms or concerns. Prescriptions: New tamsulosin 0.4 mg capsule 0.4 mg PO DAILY Qty: 7 0RF tamsulosin 0.4 mg capsule 0.4 mg PO DAILY Qty: 7 0RF No Action furosemide 20 mg tablet 20 mg PO DAILY 30 Days Qty: 30 2RF amlodipine 5 mg tablet 5 mg PO DAILY Qty: 120 0RF sertraline 100 mg tablet 100 mg PO DAILY 90 Days Qty: 90 1RF atorvastatin 40 mg tablet 40 mg PO DAILY Qty: 90 0RF hydrocodone-acetaminophen 5-325 mg tablet 1 tab PO Q8H PRN (Reason: Pain) cyclobenzaprine 5 mg Tablet 5 mg PO TID PRN (Reason: Muscle Spasm) Qty: 20 0RF metoprolol succinate 50 mg tablet extended release 24 hr 50 mg PO DAILY Qty: 270 3RF insulin glargine [Lantus Solostar U-100 Insulin] 100 unit/mL (3 mL) insulin pen 20 unit SUBCUT BEDTIME Qty: 15 0RF insulin glargine [Lantus Solostar U-100 Insulin] 100 unit/mL (3 mL) insulin pen 22 unit SUBCUT DAILY Qty: 15 0RF (DME) diabetic foot wear See Rx Instructions .Route .MEDSUPPLY Qty: 1 0RF Rx Instructions: As directed (DME) diabetic supplies[facility]. [facility] See [facility] Instructions .ROUTE .MEDSUPPLY Qty: 1 0RF Rx Instructions: DM shoes aspirin [Adult Low Dose Aspirin] 81 mg tablet,delayed release (DR/EC) 81 mg PO DAILY lisinopril 20 mg tablet 20 mg PO DAILY Referrals: [facility] [Provider Group, Urology] Clinical Impression: Kidney stone on left side Interventions: ED Discharge Assessment Last Done: 08/27/25 03:14 Discharge Date/Time: 08/27/25 03:14 Print Language: Lithuanian
[2025-08-26 21:29] LABS: Alanine Aminotransferase 25 U/L (0-40); Albumin Level 4.3 g/dL (3.5-5.0); Alkaline Phosphatase 92 U/L (39-117); Anion Gap 16 (12-20); Aspartate Amino Transferase 36 U/L (5-37); Blood Urea Nitrogen 13 mg/dL (9-16); Calcium 9.9 mg/dL (8.4-10.2); Carbon Dioxide 22 mmol/L (22-29); Chloride 105 mmol/L (96-108); Creatinine Clr Calc Pharmacy 76.8; Estimated Glomerular Filt Rate > 60; Magnesium 1.9 mg/dL (1.6-2.6); Potassium 3.8 mmol/L (3.3-5.1); Sodium 139 mmol/L (135-145); Total Protein 8.0 g/dL (6.5-8.0)
[2025-08-26 21:36] LABS: Troponin-I High Sensitivity 32.2 ng/L (<3.5-35.0)
[2025-08-26 21:45] LABS: Resp Syncy Virus RNA Qual PCR NEGATIVE (Negative); SARS COV2 PCR INHOUSE NEGATIVE (Negative)
[2025-08-26] MEDS: iohexoL 350 MG/ML 100 ML INFUS..BTL 85 ML IV (23:42)
[2025-08-27 01:23] LABS: Appearance Urine Cloudy; Glucose Urine UA Negative (Negative); PH 5.0 (5.0-9.0); Specific Gravity - Urine 1.020 (1.005-1.025); UMIC TRIGGER UACC YES
[2025-08-27 03:13] VITALS: BP 156/72; PULSE 104; RESP 18; TEMP 37.1; O2SAT 97
[2025-08-27 03:14] VITALS: BP 156/72; PULSE 104; RESP 18; TEMP 37.1; O2SAT 97
== END 2025-08-27 03:14 | disposition home or self-care (01) ==
PROVIDERS: Physician Assistant Medical; Emergency Provider Student in an Organized Health Care Education/Training Program
DX: N20.0 Calculus of kidney (principal); R10.32 Left lower quadrant pain; R10.13 Epigastric pain; Z03.818 Encounter for observation for suspected exposure to other biological agents ruled out; I44.7 Left bundle-branch block, unspecified; I44.0 Atrioventricular block, first degree; E11.9 Type 2 diabetes mellitus without complications; E78.5 Hyperlipidemia, unspecified; I10 Essential (primary) hypertension; K21.9 Gastro-esophageal reflux disease without esophagitis; Z79.899 Other long term (current) drug therapy
CPT/HCPCS: 36415; 74177; 80053; 81001; 83735; 84484; 85025; 87637; 93005; 96374; 99285; J1885; J2405; Q9967

== ENCOUNTER → 2025-08-26 20:21 | Outpatient (BNV) | payer MEDICARE, OTHER, SELFPAY | PROVIDERS: Emergency Provider Student in an Organized Health Care Education/Training Program; Visit Provider Internal Medicine Cardiovascular Disease | DX: I44.0 Atrioventricular block, first degree (principal); I44.7 Left bundle-branch block, unspecified | CPT/HCPCS: 93010 ==

== ENCOUNTER → 2025-08-26 22:43 | Outpatient (BNV) | payer MEDICARE, OTHER, SELFPAY | PROVIDERS: Emergency Provider Student in an Organized Health Care Education/Training Program; Visit Provider Radiology Diagnostic Radiology | DX: N13.2 Hydronephrosis with renal and ureteral calculous obstruction (principal) | CPT/HCPCS: 74177 ==